=== PATIENT | female | born 1990 | race Caucasian/White ===

== ENCOUNTER 2021-12-16 08:01 | Emergency (ER) | payer BC, SELFPAY ==
--- NOTE | ~2021-12-16 | XR_ITS ---
XR chest 1V portable DATE: 12/16/2021 08:44 INDICATION: Shortness of breath. Asthma attack. TECHNIQUE: Portable upright AP chest on 12/16/2021 at 0840 hours COMPARISON: None FINDINGS: Normal heart size. No hilar or mediastinal enlargement. The lungs appear normally inflated and clear of infiltrate or consolidation. No pleural effusion or pulmonary vascular congestion or pne umothorax. Included skeletal structures are unremarkable. IMPRESSION: Negative Reviewed, dictated and finalized at location A. IMPRESSION: Negative
[2021-12-16 08:08] VITALS: BP 116/72; PULSE 75; RESP 16; TEMP 36.2; O2SAT 97
--- NOTE | 2021-12-16 08:23 | ED.ASTHMA ---
HPI - Asthma General Chief Complaint: Asthma Stated Complaint: ASTHMA EXACERBATION Time Seen by Provider: 12/16/21 08:14 History of Present Illness HPI Narrative: 31-year-old female with history of asthma presented to the emergency department for evaluation of worsening shortness of breath that started this morning. Patient states her last asthma exacerbation was associated when she had a . Her physicians have felt that her asthma exacerbations are correlated with her hormone fluctuation. Patient states this morning she had onset of symptoms did use her rescue inhaler and does feel improved since. Patient states she does still have some residual wheezing but feels improved compared to when she had the onset of symptoms at approximately 630 this morning. Related Data Allergies Allergy/AdvReac Type Severity Reaction Status Date / Time minocycline Allergy Unknown Unknown Unverified 12/16/21 08:29 tramadol Allergy Nausea and Verified 12/16/21 08:29 Vomiting Cat Dander Allergy Unknown Unknown Uncoded 12/16/21 08:29 Grass Allergy Unknown Unknown Uncoded 12/16/21 08:29 Molds and Smuts Allergy Unknown Unknown Uncoded 12/16/21 08:29 Review of Systems Review of Systems: CONSTITUTIONAL: Denies fever, chills, or sweats. EYES: Denies visual changes, redness, or discharge. ENT: Denies rhinorrhea, congestion, sore throat, or otalgia. CARDIOVASCULAR: Denies chest pain, palpitations, or edema. RESPIRATORY: See HPI GASTROINTESTINAL: Denies abdominal pain, nausea, vomiting, or diarrhea. GENITOURINARY: Denies dysuria or hematuria. SKIN: Denies rash or itching. MUSCULOSKELETAL: Denies back pain, joint pain, or myalgia. NEUROLOGIC: Denies headache, numbness, or weakness. PSYCHIATRIC: Denies anxiety or depression. Exam Narrative: APPEARANCE: Well appearing, no pain, no distress, well-nourished. HEAD: normocephalic, atraumatic. EYES: PERRLA/EOMI, conjunctivae clear. NOSE: Normal no drainage NECK: Supple. No adenopathy, no masses. RESPIRATORY: Some minor wheezing with inspiration CARDIOVASCULAR: Regular rate and rhythm without murmurs rubs or gallops. ABDOMINAL: Soft, nontender, nondistended, normal bowel sounds MUSCULOSKELETAL: Moves all extremities. Strength/ROM intact, No edema, No calf tenderness. NEURO: Alert. Cranial nerves II through XII intact. Grossly intact SKIN: Warm, dry. Normal Color PSYCHIATRIC: Normal affect/mood. Course Course Emergency Course: Patient does feel improved with treatment. Patient's x-ray showed no acute cardiopulmonary malady. Patient has no wheezing on exam. Patient's wheezing did resolve with albuterol. Vital Signs Vital signs: Vital Signs Temperature 97.2 F L 12/16/21 08:08 Pulse Rate 75 12/16/21 08:08 Respiratory Rate 16 12/16/21 08:08 Blood Pressure 116/72 12/16/21 08:08 Pulse Oximetry 97 12/16/21 08:08 Oxygen Delivery Room Air 12/16/21 08:08 Temperature 97.2 F L 12/16/21 08:08 Pulse Rate 75 12/16/21 08:08 Respiratory Rate 16 12/16/21 09:14 Blood Pressure 116/72 12/16/21 08:08 Pulse Oximetry 97 12/16/21 08:08 Oxygen Delivery Room Air 12/16/21 08:22 MDM - Asthma Lab Data Labs: Lab Results 12/16/21 Range/Units 08:51 Influenza A (RT-PCR) Negative (Negative) Influenza B (RT-PCR) Negative (Negative) SARS-CoV-2 RNA (RT-PCR) Negative Imaging Data Radiologist's impression: Impressions Chest X-Ray 12/16/21 08:50 IMPRESSION: Negative Discharge Plan Discharge Clinical Impression: Asthma with acute exacerbation Patient Disposition: Home, Self-Care Condition: Stable Additional Instructions: Rescue albuterol inhaler as needed over the next few days. If you feel you are having the still use your inhaler more frequently than I do recommend starting the steroid burst. We recommend close follow-up with your primary care physician. Prescriptions: New prednisone 50 mg tablet 50 mg PO PATRICIA
[2021-12-16] MEDS: ALBUTEROL SULFATE NEB 2.5 MG/3 ML INH 5 MG INHALATION (09:08)
[2021-12-16 09:14] VITALS: RESP 16
[2021-12-16 09:33] LABS: Influenza A QL RT-PCR Negative (Negative); Influenza B QL RT-PCR Negative (Negative); SARS-CoV-2 RNA PCR Negative
== END 2021-12-16 10:06 | disposition home or self-care (01) ==
PROVIDERS: Emergency Provider Emergency Medicine; PCP Internal Medicine
DX: J45.901 Unspecified asthma with (acute) exacerbation (principal); Z20.822 Contact with and (suspected) exposure to COVID-19
CPT/HCPCS: 71045; 87502; 94640; 99283; U0003; U0005

== ENCOUNTER 2022-04-09 08:59 | Emergency (ER) | payer BC, SELFPAY ==
--- NOTE | ~2022-04-09 | XR_ITS ---
EXAMINATION: XR chest 2V 04/09/2022 09:25 INDICATION: Chest pain PROCEDURE: 2 view chest COMPARISON: 12/16/2021 FINDINGS: The lungs are clear. The cardiomediastinal silhouette is within normal limits. There are no pleural effusions. There is no pneumothorax suspected. IMPRESSION: 1: NO ACUTE CARDIOPULMONARY DISEASE. Reviewed, dictated and finalized at location L. REPAIR INSPECTOR
--- NOTE | ~2022-04-09 | CT_ITS ---
EXAMINATION: CTA chest PE protocol DATE: 04/09/2022 10:16 PRODUCTION TEAM MEMBER INDICATION: Left-sided pleuritic chest pain TECHNIQUE: Computed tomographic angiography (CTA) of the chest was performed with 100 mL Omnipaque-35 0 intravenous contrast. The dose-length product was 324.09 mGy-cm. Maximum intensity projection 3D-re constructions of the aorta and other arteries were constructed by the technologist on a separate work station. Automated exposure control and iterative reconstruction technique were employed. COMPARISON: Chest x-ray dated 04/09/2022. FINDINGS: Study is technically adequate without evidence for pulmonary embolism. No thoracic lymphade nopathy. Small left pleural effusion. Small pericardial effusion. No endobronchial lesions. No pneumo thorax. No focal airspace consolidation. There is focal right upper lobe atelectasis/scarring. No acu te osseous abnormality. IMPRESSION: 1. Small left pleural effusion. 2: Small pericardial effusion. 3: No evidence for pulmonary embolism. Reviewed, dictated and finalized at location L. UCTION TEAM MEMBER
[2022-04-09 09:04] VITALS: BP 126/88; PULSE 77; RESP 14; TEMP 36.6; O2SAT 100
--- NOTE | 2022-04-09 09:04 | ECG_ITS ---
Measurements Intervals [place] Rate: 73 P: 54 CA: 145 QRS: 71 QRSD: 101 T: 25 QT: 387 QTc: 427 Interpretive Statements SINUS RHYTHM NORMAL ECG NO PREVIOUS ECG AVAILABLE FOR COMPARISON Electronically Signed On 04-09-2022 10:09:40 SOFTWARE DEVELOPER MANAGER by Justo Sierra M.D.
[2022-04-09 09:11] VITALS: PULSE 75; O2SAT 100
--- NOTE | 2022-04-09 09:13 | ED.CHESTPAIN ---
HPI - Chest Pain General Chief Complaint: Chest Pain Stated Complaint: neck, chest and back pain x 2 days Time Seen by Provider: 04/09/22 09:11 Source: patient Mode of arrival: ambulatory Limitations: no limitations History of Present Illness HPI narrative: This is a 32 year old female that presents to the ER for left sided chest pain. Ongoing over the last 3 days. Reports initially it felt like a pulled muscle. She had played pickle ball that day. Reports the pain radiates into her back. Worse with inspiration. She has been taking Tylenol with some relief. Denies fever, cough, shortness of breath or lower extremity edema. Related Data Allergies Allergy/AdvReac Type Severity Reaction Status Date / Time minocycline Allergy Unknown Unknown Verified 04/09/22 09:12 tramadol Allergy Nausea and Verified 04/09/22 09:12 Vomiting Cat Dander Allergy Unknown Unknown Uncoded 04/09/22 09:12 Grass Allergy Unknown Unknown Uncoded 04/09/22 09:12 Molds and Smuts Allergy Unknown Unknown Uncoded 04/09/22 09:12 Review of Systems Review of Systems: CONSTITUTIONAL: Denies fever CARDIOVASCULAR: Reports chest pain. Denies edema. RESPIRATORY: Denies cough or dyspnea. SKIN: Denies rash MUSCULOSKELETAL: Reports back pain, joint pain, and myalgia. All systems reviewed & are unremarkable except as noted in HPI and below PMFSH Past Medical History Medical History (Updated 04/09/22 @ 12:31 by Sofy Harper PA-C) History of asthma History of lupus Social History Social History (Updated 04/09/22 @ 09:47 by Sofy Harper PA-C) Smoking status: Never smoker Substance use: never Exam Narrative: GENERAL: Well-appearing, well-nourished, and in no acute distress. HEAD: Normocephalic, atraumatic. EYES: EOMI. CHEST: Clear to auscultation. No respiratory distress. No wheezes rales or rhonchi HEART: Regular rate and rhythm. No murmur heard. Normal peripheral pulses. EXTREMITIES: Normal range of motion. No edema. SKIN: Warm, dry, no rash. NEURO: No focal deficits. Alert and oriented x3. PSYCH: Normal mood and affect Course Course Emergency Course: Patient and family updated on work-up and agree with plan of care Consultations Consultation #1: Spoke with patient's balance recesser, JOSE Friedman about patient and workup. Agrees with scheduled anti-inflammatories and follow-up in their clinic Date: 04/09/22 Vital Signs Vital signs: Vital Signs Temperature 97.8 F 04/09/22 09:04 Pulse Rate 77 04/09/22 09:04 Respiratory Rate 14 04/09/22 09:04 Blood Pressure 126/88 04/09/22 09:04 Pulse Oximetry 100 04/09/22 09:04 Oxygen Delivery Room Air 04/09/22 09:04 Temperature 97.8 F 04/09/22 09:04 Pulse Rate 68 04/09/22 11:19 Respiratory Rate 12 04/09/22 11:19 Blood Pressure 95/56 L 04/09/22 11:19 Pulse Oximetry 98 04/09/22 11:19 Oxygen Delivery Room Air 04/09/22 09:11 MDM - Chest Pain MDM Narrative Medical decision making narrative: Patient presents to the emergency department for pleuritic left-sided chest pain ongoing over the last couple of days. She is afebrile and nontoxic-appearing. Oxygen saturation is normal on room air. CBC is without leukocytosis. Metabolic panel without concerning findings. EKG without acute changes and baseline troponin is negative. test is negative. D-dimer was elevated, so CTA of the chest was obtained. This shows a small left pleural effusion as well as a small pericardial effusion. No evidence for PE. Suspect manifestations of her lupus. Spoke with patient's balance recesser, JOSE Friedman about patient and workup. Agrees with scheduled anti-inflammatories and follow-up in their clinic. Patient is stable and felt appropriate for further outpatient evaluation. She was given warnings to return to the ER Differential Diagnosis Differential diagnosis: Likely pneumothorax, atypical chest pain, costochondritis and other (PE, pleural effusion, pneumonia) Lab D
[2022-04-09 09:18] LABS: Basophils Percent Auto 0.3 % (0.2-1.2); Eosinophils Absolute Auto 0.1 K/mm3 (0-0.3); Eosinophils Percent Auto 0.9 % (0-4.4); Hematocrit 39.5 % (37.0-47.0); Hemoglobin 13.4 g/dL (12.0-15.0); Immature Granulocyte Absolute 0.03 K/mm3 (0.00-0.031); Immature Granulocyte Percent A 0.3 % (0-0.5); Lymphocytes Absolute Auto 1.68 K/mm3 (0.9-3.2); Lymphocytes Percent Auto 17.9 % (18.3-44.2); Mean Corpuscular HGB Conc 33.9 g/dl (32-36); Mean Corpuscular Hemoglobin 31.1 pg (26-34); Mean Corpuscular Volume 91.6 fl (80-100); Mean Platelet Volume 11.4 fl (7.4-10.4); Monocytes Absolute Auto 0.7 K/mm3 (0.1-0.6); Neutrophils Absolute Auto 6.9 K/mm3 (1.3-6.7); Neutrophils Percent Auto 73.6 % (45.5-73.1); Platelet Count Result 190 k/mm3 (150-375); Red Blood Count 4.31 M/mm3 (4.2-5.4); Red Cell Distribution Width 11.8 % (11.5-14.5); White Blood Count 9.4 K/mm3 (4.5-10.0)
[2022-04-09 09:28] LABS: Alanine Aminotransferase 25 U/L (6-35); Albumin Level 4.9 g/dL (3.5-5.1); Alkaline Phosphatase 42 U/L (38-126); Anion Gap 6 mmol/L (8-16); Aspartate Amino Transferase 35 U/L (14-36); Bilirubin,Total 0.8 mg/dL (0.2-1.3); Blood Urea Nitrogen 8 mg/dL (7-17); Carbon Dioxide 31 mmol/L (22-30); Chloride 103 mmol/L (98-107); Estimated CRCL calculation 100 ml/min; Estimated Glomerular Filt Rate > 60; Glucose 66 mg/dL (65-110); Lipase 55 U/L (23-300); Potassium 3.5 mmol/L (3.4-5.0); Sodium 140 mmol/L (137-145)
[2022-04-09 09:32] LABS: Partial Thromboplastin Time 28.7 SECONDS (22.3-36.8)
[2022-04-09 09:33] LABS: Prothrombin Time 13.1 Seconds (11.1-14.7)
[2022-04-09 09:39] LABS: D Dimer 0.69 ug/mL (<0.48); Troponin I < 0.012 ng/mL (0.000-0.034)
[2022-04-09 09:57] VITALS: BP 119/70; PULSE 70; RESP 15; O2SAT 99
[2022-04-09 11:19] VITALS: BP 95/56; PULSE 68; RESP 12; O2SAT 98
[2022-04-09 12:41] VITALS: BP 106/56; PULSE 86; RESP 17; O2SAT 99
== END 2022-04-09 12:42 | disposition home or self-care (01) ==
PROVIDERS: Emergency Medicine; Emergency Provider Physician Assistant; PCP Family Medicine
DX: J90 Pleural effusion, not elsewhere classified (principal); J45.909 Unspecified asthma, uncomplicated
CPT/HCPCS: 36415; 71046; 71275; 80053; 81025; 83690; 84484; 85025; 85380; 85610; 85730; 93005; 99284; Q9967

== ENCOUNTER 2023-05-27 10:32 | Emergency (ER) | payer BC, SELFPAY ==
[2023-05-27 10:38] VITALS: BP 140/63; PULSE 59; RESP 16; TEMP 36.5; O2SAT 97
--- NOTE | 2023-05-27 10:54 | ED.UPPEXIN ---
HPI - Extremity Injury (Upper) General Chief Complaint: Extremity Injury, Upper Stated Complaint: left ring finger injury/bleeding. Time Seen by Provider: 05/27/23 10:47 History of Present Illness HPI narrative: 33-year-old female presents to the emergency room for evaluation of a left ring finger injury. Patient states that she cut her finger on a piece of glass, is unable to stop the bleeding. Patient was seen at urgent care yesterday and was told that there was nothing to repair. Pressure dressing was applied yesterday, patient states that she has been bleeding through the dressing. Patient states she is not anticoagulated. Related Data Allergies Allergy/AdvReac Type Severity Reaction Status Date / Time minocycline Allergy Unknown Unknown Verified 04/09/22 09:12 tramadol Allergy Nausea and Verified 04/09/22 09:12 Vomiting Cat Dander Allergy Unknown Unknown Uncoded 04/09/22 09:12 Grass Allergy Unknown Unknown Uncoded 04/09/22 09:12 Molds and Smuts Allergy Unknown Unknown Uncoded 04/09/22 09:12 Review of Systems Review of Systems: CONSTITUTIONAL: Denies fever, chills, or sweats. EYES: Denies visual changes, redness, or discharge. ENT: Denies rhinorrhea, congestion, sore throat, or otalgia. CARDIOVASCULAR: Denies chest pain, palpitations, or edema. RESPIRATORY: Denies cough or dyspnea. GASTROINTESTINAL: Denies abdominal pain, nausea, vomiting, or diarrhea. GENITOURINARY: Denies dysuria or hematuria. SKIN: Denies rash or itching. MUSCULOSKELETAL: Denies back pain, joint pain, or myalgia. NEUROLOGIC: Denies headache, numbness, dizziness, or weakness. PSYCHIATRIC: Denies anxiety or depression. PMFSH Past Medical History Medical History History of asthma History of lupus Social History Social History Smoking status: Never smoker Substance use: never Exam Narrative: GENERAL: Well-appearing, well-nourished, no physical limitations, and in no acute distress. HEAD: Normocephalic, atraumatic. EYES: Conjunctivae normal, PERRLA and EOMI. CHEST: Clear to auscultation. No respiratory distress. No wheezes rales or rhonchi. HEART: Regular rate and rhythm. No murmur heard. Normal peripheral pulses. EXTREMITIES: Normal range of motion. No edema. No clubbing or cyanosis SKIN: Left ring finger: NEURO: No focal deficits. Alert and oriented x3. MAEW. CN's II-XI intact bilaterally, normal gait PSYCH: Cooperative. Normal mood and affect. Course Vital Signs Vital signs: Vital Signs Temperature 36.5 C 05/27/23 10:38 Pulse Rate 59 L 05/27/23 10:38 Respiratory Rate 16 05/27/23 10:38 Blood Pressure 140/63 05/27/23 10:38 Pulse Oximetry 97 05/27/23 10:38 Temperature 36.5 C 05/27/23 10:38 Pulse Rate 59 L 05/27/23 10:38 Respiratory Rate 16 05/27/23 10:38 Blood Pressure 140/63 05/27/23 10:38 Pulse Oximetry 97 05/27/23 10:38 Procedures Other Procedure Procedure 1: Other Procedure: Surgicel applied to wound with pressure dressing. Bleeding controlled. Discharge Plan Discharge Clinical Impression: Avulsion of skin of finger Patient Disposition: Home, Self-Care Condition: Stable Instructions: Antibiotic Form, Skin Avulsion (ED) Prescriptions: No Action prednisone 50 mg tablet 50 mg PO DAILY 5 Days Qty: 5 0RF naproxen 500 mg tablet 500 mg PO BID 14 Days Qty: 28 0RF Follow-up/Referrals: Lucio,Angelo Hayes MD [Primary Care Provider] - Time of Disposition: 12:27
[2023-05-27 12:36] VITALS: BP 170/68; PULSE 87; RESP 19; TEMP 36.8; O2SAT 98
== END 2023-05-27 12:38 | disposition home or self-care (01) ==
PROVIDERS: Emergency Provider Nurse Practitioner Family; PCP Family Medicine
DX: S61.205A Unspecified open wound of left ring finger without damage to nail, initial encounter (principal); J45.909 Unspecified asthma, uncomplicated; M32.9 Systemic lupus erythematosus, unspecified; W25.XXXA Contact with sharp glass, initial encounter
CPT/HCPCS: 99282

== ENCOUNTER 2024-08-20 10:55 | Emergency (ER) | payer BC, SELFPAY ==
[2024-08-20] VITALS (22 sets, daily range): BP systolic 91–121; BP diastolic 57–71; PULSE 64–80; RESP 12–22; TEMP 36.7; O2SAT 97–100
--- NOTE | ~2024-08-20 | XR_ITS ---
CHEST RADIOGRAPH, PA AND LATERAL CLINICAL HISTORY: chest pain, PMH pleural effusion . COMPARISON: 04/09/2022 TECHNIQUE: PA and lateral views of the chest. FINDINGS The cardiomediastinal silhouette is unremarkable. The lungs are clear. IMPRESSION: No focal infiltrate or effusion. Reviewed, dictated and finalized at location A.
--- NOTE | 2024-08-20 10:55 | ECG_ITS ---
Test Date: 2024-08-20 11:00:04 Measurements Intervals [place] Rate: 84 P: 65 SD: 135 QRS: 83 QRSD: 90 T: 45 QT: 351 QTc: 417 Interpretive Statements SINUS RHYTHM POSSIBLE LEFT ATRIAL ENLARGEMENT [-0.1mV P WAVE IN V1/V2] No previous ECG available for comparison Electronically Signed On 08-20-2024 13:51:46 CDT by Brant Jacome M.D.
--- OUTSIDE RECORDS SUMMARY | 2024-08-20 10:57 | XMS_ITS | Encounter Summary ---
Author Organization [facility] Address [address] [place] [address] Phone Care Team Providers Care Pneumatic Riveter Name Role Phone Juan Baker MD Primary Care Provider [phone] Tarun Thompson MD Primary Care Provider [phone] Juan Baker MD Primary Care Provider [phone] Dwayne RIVERA MD, John J. Unavailable [phone] Juan Baker MD Primary Care Provider [phone] Angelo Valdes MD Primary Care Provider Guy Staples MD Unavailable [phone] Cailin Frank MD Unavailable Jay Santamaria MD Unavailable [phone] Encounter Details Date Type Department Care Team (Latest Contact Info) Description 12/29/2016 Orders Only [facility] CONVERSION Scanning, Provider Social History Tobacco Use Types Packs/Day Years Used Date Smoking Tobacco: Never Alcohol Use Standard Drinks/Week Comments No 0 (1 standard drink = 0.6 oz pur e alcohol) Comments Yes Sex and Gender Information Value Date Recorded Sex Assigned at Not on file Legal Sex Female 2:00 AM CAGE SHIFT MANAGER Gender Identity Not on file Sexual Orientation Not on file documented as of this encounter Plan of Treatment Not on file documented as of this encounter Procedures Procedure Name Priority Date/Time Associated Diagnosis Comments OBSTETRIC/GYNECOLOGY ULTRASONOGRAPHY REPORT 12/29/2016 2:46 PM CAGE SHIFT MANAGER documented in this encounter Results * OBSTETRIC/GYNECOLOGY ULTRASONOGRAPHY REPORT (12/29/2016 2:46 PM CAGE SHIFT MANAGER) Anatomical Region Laterality Modality Ultrasound us Provider Scanning IMG OB US PROCEDURES Final Res ult documented in this encounter Visit Diagnoses Not on filedocumented in this encounter Additional Health Concerns Infection Onset Date Last Indicated Resolved Time COVID: Suspected 08/12/2022 08/12/2022 08/12/2022 4:06 PM CDT COVID: Suspected 01/04/2023 01/04/2023 01/04/2023 4:45 PM CAGE SHIFT MANAGER COVID: Suspected 01/08/2023 01/08/2023 01/08/2023 2:13 PM CAGE SHIFT MANAGER COVID: Suspected 03/23/2024 03/23/2024 03/23/2024 10:02 AM CAGE SHIFT MANAGER Influenza, adult 03/23/2024 03/23/2024 03/30/2024 3:05 AM CAGE SHIFT MANAGER documented as of this encounter Care Teams Pneumatic Riveter Relationship Specialty Start Date End Date Juan Baker MD [address] [place] [address] PCP - General 05/15/16 12/30/16 Tarun Thompson MD [address] [id number] [place] [address] PCP - General 12/31/16 01/05/17 Juan Baker MD [address] [place] [address] PCP - General 01/06/17 04/08/17 Juan Baker MD [address] [place] [address] PCP - General 04/09/17 03/24/22 Angelo Valdes MD [address] [facility] [address] [place] [address] PCP - General Family Medicine 03/25/22 Ender Rice III, MD [address] [place] [address] Rheumatology 02/23/17 03/03/23 Guy Staples MD [address] [place] [address] Consulting Physician Obstetrics and Gynecology 03/25/22 Cailin Frank MD [address] O[facility]YN [facility] , [address] [place] [address] Consulting Physician Maternal and Medicine 11/16/22 Jay Santamaria MD [address] [place] [address] Consulting Physician Rheumatology 03/04/23 documented as of this encounter
--- OUTSIDE RECORDS SUMMARY | 2024-08-20 10:57 | XMS_ITS | Encounter Summary ---
Author Organization [facility] Address [address] [place] [address] Phone Care Team Providers Care Shot Man Name Role Phone Angelo Valdes MD Primary Care Provider Guy Staples MD Unavailable [phone] Cailin Frank MD Unavailable [phone] Jay Santamaria MD Unavailable [phone] Encounter Details Date Type Department Care Team (Late st Contact Info) Description 06/28/2024 Results Follow-Up [facility] Obstetrics and Gynecology [address] [facility] [address] [place] [address] Poonam Alexander Rai, HARVESTING CONTRACTOR [address] [facility] [address] [place] [address] [place] Pelvis Complete Social History Tobacco Use Types Packs/Day Years Used Date Smoking Tobacco: Never Smokeless Tobacco: Never Alcohol Use Standard Drinks/Week Comments Yes 0 (1 standard drink = 0.6 oz pur e alcohol) Socially Social Connection and Isolat ion Panel [NHANES] Answer Date Recorded In a typical week, how many times do you talk on the phone with family, friends, or neighbors? More than three times a week 01/13/2023 How often do you get togethe r with friends or relatives? More than three times a week 01/13/2023 How often do you attend chur or denominational services? More than 4 times per year 01/13/2023 Do you belong to any clubs o r organizations such as confucianism groups, unions, fraternal or athletic groups, or school groups? Yes 01/13/2023 How often do you attend meet ings of the clubs or organizations you belong to? 1 to 4 times per year 01/13/2023 Are you , , di vorced, , never , or living with a partner? 01/13/2023 AUDIT-C Answer Date Recorded Q1: How often do you have a drink containing alc ohol? 2-3 times a week 03/25/2022 Q2: How many drinks containi ng alcohol do you have on a typical day when you are drinking? 1 or 2 03/25/2022 Q3: How often do you have si x or more drinks on one occasion? Less than monthly 03/25/2022 Overall Financial Resource Strain (CARDIA) Answe r Date Recorded How hard is it for you to pa y for the very basics like food, housing, medical care, and heating? Not hard at all 01/13/2023 PHQ-2 Answer Date Recorded PHQ-2 Total Score (If total score is 3 or more points, staff should administer the PHQ-9) 0 01/08/2023 Exercise Vital Sign Answer Date Recorde d Days of Exercise per Week 3 days 2018 Minutes of Exercise per Session 30 min 10/04/2018 Hunger Vital Sign Answer Date Recorded Within the past 12 months, y ou worried that your food would run out before you got the money to buy more. Never true 01/14/20 23 Within the past 12 months, t he food you bought just didn't last and you didn't have money to get more. Never true 01/13/2023 PRAPARE - Transportation Answer Date Re corded In the past 12 months, has l ack of transportation kept you from medical appointments or from getting medications? No 12/17 In the past 12 months, has l ack of transportation kept you from meetings, work, or from getting things needed for daily living? No 01/13/2023 Housing Stability Vital Sign Answer Kameron e Recorded In the last 12 months, was t here a time when you were not able to pay the mortgage or rent on time? No 01/13/2023 In the last 12 months, how many places have you lived? 1 01/13/2023 In the last 12 months, was t here a time when you did not have a steady place to sleep or slept in a fdc (including now)? No 01/13/2023 [place] Depression Scale Answer Date Recorded [place] Depression Scale Total 11 02/23/2023 The thought of harming myself has occurred to me . Never 02/23/2023 Personal Safety Answer Date Recorded Have you ever been in or are you currently in a harmful physical or emotional relationship or is someone making you feel afraid or unsafe? 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 [address] PCP - General Family Medicine 03/25/22 Guy Staples MD [address] [address] Consulting Physician Obstetrics and Gynecology 03/25/22 Cailin Frank MD [address] [facility]YN [facility] [address] [address] Consulting Physician Maternal and Medicine 11/16/22 Jay Santamaria MD [address] [place] [address] Consulting Physician Rheumatology 03/04/23 documented as of this encounter
--- OUTSIDE RECORDS SUMMARY | 2024-08-20 10:57 | XMS_ITS | Clinical Summary ---
Author Organization [facility] Care Team Providers Care Fisheries Enforcement Officer Name Role Phone Unavailable Primary Care Provider Unavailabl e Social History Tobacco Use Types Packs/Day Years Used Date Smoking Tobacco: Never Assessed Comments Unknown Sex and Gender Information Value Date Recorded Sex Assigned at Not on file Legal Sex Female 10:01 AM MONTESSORI TODDLER TEACHER Gender Identity Not on file Sexual Orientation Not on file Plan of Treatment Health Maintenance Due Date Last Done Comments Hepatitis C Virus (HCV) Screening 1989 TdaP Immunization 1989 Hepatitis B Immunization (1 of 3 - 19+ 3-dose series) 01/31/2008 Pap Smear 2010 Cervical Cancer Screening (CCS) 2019 HPV/Cotest 2019 Influenza Immunization (#1) 2023 SARS-COV-2 Immunization ( season) 2023 01/19/2021, 05/11/2020, 04/18/2020 Respiratory Syncytial Virus (RSV) Immunization (Adult) (1 - 1-dose 75+ series) 01/31/2064 Meningococcal Immunization (ACWY) Aged Out No longer eligible b ased on patient's age to complete this topic Pneumococcal Immunization Combined Aged Out No longer eligible b ased on patient's age to complete this topic Rotavirus Immunization Aged Out No lo nger eligible based on patient's age to complete this topic
--- OUTSIDE RECORDS SUMMARY | 2024-08-20 10:57 | XMS_ITS | Clinical Summary ---
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 Name Role Phone Juan Baker MD Primary Care Provider [phone] Social History Tobacco Use Types Packs/Day Years Used Date Smoking Tobacco: Never Assessed Comments Unknown Sex and Gender Information Value Date Recorded Sex Assigned at Not on file Legal Sex Female 7:52 PM CDT Gender Identity Not on file Sexual Orientation Not on file Plan of Treatment Health Maintenance Due Date Last Done Comments Cervical Cancer Screening Pa p Smear (Age 30 to 64) Every 3 Years 1989 Annual Physical 01/31/1992 Hepatitis C 2007 Hepatitis B Vaccines (1 of 3 - 19+ 3-dose series) 01/31/2008 Cervical Cancer Screening Pa p with HPV Testing (Age 30 to 64) Every 5 Years 2019 Cervical Cancer Screening wi th HPV 2019 COVID-19 Vaccine ( - 2023-2 5 season) 2023 05/11/2020, 04/18/2020 DTaP, Tdap and Td Vaccines ( 3 - Td or Tdap) 05/15/2029 05/16/2019, 10/27/2016 Pneumococcal Vaccine: Pediatrics (0 to 5 Years) and At-Risk Patients (6 to 49 Years) Aged Out 03/18/2007 No longer eligible b ased on patient's age to complete this topic HPV Vaccines Aged Out No longer eligi ble based on patient's age to complete this topic Meningococcal B Vaccine Aged Out No l onger eligible based on patient's age to complete this topic Meningococcal Vaccine Aged Out No cathryn lillian eligible based on patient's age to complete this topic RSV Immunizations Under 20 Months Aged Out No longer eligible b ased on patient's age to complete this topic Care Teams Cash Van Salesperson Relationship Specialty Start Date End Date Juan Baker MD [address] [place] [id number] PCP - General 03/18/16
--- OUTSIDE RECORDS SUMMARY | 2024-08-20 10:57 | XMS_ITS | Clinical Summary ---
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 Reaction: Other, Mint Itching Low 01/04/2019 Naproxen Stomach upset,Nausea And Vomiting Low 04/16/2022 Peppermint Oil Itching Low 01/04/2019 Tramadol Nausea only,Vomiting,Nausea And Vomiting Low 10/13/2023 Medications 25/iron fum/folic/dha (-1 ORAL) Take by mouth Active ibuprofen (ADVIL,MOTRIN) 600 mg tablet Take 1 tablet (600 mg total) by mouth every 6 (six) hours as needed for pain 60 tablet 01/16/20 23 Active norethindrone (MICRONOR) 0.35 mg tabletIndications : Contraception Take 1 tablet (0.35 mg total) by mouth daily 28 tablet 12 01/16/20 23 Active UNABLE TO FIND Med Name: supplements Active albuterol (PROAIR RESPICLICK) 90 mcg/actuation inhalerIndication s:Acute Asthma Attack Inhale 2 puffs every 6 (six) hours as needed for wheezing 1 each 07/21/19 24 Active Additional Information Patient not taking.Reported on 06/19/2024 albuterol 2.5 mg /3 mL (0.083 %) nebulizer solutionIndicatio ns:Acute Asthma Attack Take 3 mL (2.5 mg total) by nebulization 4 (four) times a day as needed for wheezing or shortness of breath 270 mL 1 08/06/19 24 Active Additional Information Patient not taking.Reported on 06/19/2024 fluticasone furoate-vilantero L (Breo Ellipta) 200-25 mcg/dose diskus inhaler Inhale 1 puff daily Rinse mouth with water after use. Do not swallow. 60 each 5 08/06/19 24 Active nebulizer and compressor device Use as directed with albuterol 1 each 08/06/19 24 Active Additional Information Patient not taking.Reported on 06/19/2024 benzonatate (TESSALON) 100 mg capsuleIndication s:Cough Take 1 capsule (100 mg total) by mouth 3 (three) times a day as needed for cough 42 capsule 03/23/19 25 Active albuterol HFA (PROVENTIL HFA,VENTOLIN HFA,PROAIR HFA) 90 mcg/actuation inhalerIndication s:Mild intermittent asthma without complication Inhale 2 puffs every 6 (six) hours as needed for wheezing or shortness of breath 18 g 03/23/19 25 Active azaTHIOprine (IMURAN) 50 mg tablet TAKE 2 TABLETS(100 MG) BY MOUTH DAILY 180 tablet 1 04/25/19 25 Active hydroxychloroquin e (PLAQUENIL) 200 mg tablet TAKE 1 TABLET(200 MG) BY MOUTH TWICE DAILY 180 tablet 1 06/23/19 25 Active Active Problems Problem Noted Date Diagnosed Date Pain of right hip 03/17/2024 Assessment & Plan (03/17/2024 1:21 PM GENERAL INTERNIST): Intermittent R hip pain, located near gluteal muscle insertion. Also describing what is likely meralgia paresthetica. Not interfering with any usual activities. Recommend working more on hip/gluteal strengthening exercises. Mild intermittent asthma, uncomplicated 10/13/19 24 H/O section 01/12/2023 Overview (01/12/2023): Alejandra Rodriguez is a 32 y.o. female at 39w2d who is dated by L=1 and is being admitted for scheduled repeat CS . Admit to L&D: Consents signed and placed in chart. Labs: CBC and T&S pending. section after labs return. FWB: Continuous monitoring. Reactive NST. ID: 3rd trimester HIV (>28 wga) pending on admission. GBS negative on 12/22 . RPR on admission: pending. Membrane Status: intact. Indications for UDS: none. Verbal consent obtained for UDS: Not indicated. MOF: Plans to breastfeed. Urine drug screen not indicated. Patient informed of results: N/A. MOC: Plans to use POPs as bridge to partner vasectomy for contraception. Pain management: CSE to be placed in the OR. Post DVT prophylaxis: The patient has the following MAJOR risk factors lupus and the following MINOR risk factors delivery and parity >/=3. enoxaparin 40 mg daily will be ordered for VTE prophylaxis . complications: #Hx CS x2: LTCS x2 for failed IOL. S/p counseling, desires rCS. #SLE: Follows with rheumatology. Baseline CBC/CMP/UPC wnl. Current regimen: Hydroxychlorquine 400mg qAM, Azathioprine 50mg qAM, 100 mg qPM. For CBC/CMP on admission. #Bill TIUP w/ demise of twin 1: Bill TIUP diagnosed with demise of twin 1 at 9 weeks with demised twin measuring 8w4d. #Asthma: Symptoms well controlled on albuterol prn. High risk medications (not anticoagulants) long- term use 07/14/2022 Overview (07/14/2022): Will monitor labs Neg TB 2016 Neg hepatitis 2016 utd eye exam utd COVID vaccine. Had new booster Flu shot utd utd tdap. [id number] in 2007. May have a dose of PCV15 or PCV20 May also get shingles vaccine since immune compromised Assessment & Plan (06/15/2024 9:52 AM CDT): Will monitor labs Neg TB 2016 Neg hepatitis 2016 utd eye exam May get COVID shot 2-3 months after having acute COVID infection Flu shot yearly - utd 2023 utd tdap. [id number] in 2007. May have a dose of PCV15 or PCV20 May also get shingles vaccine since immune compromised Assessment & Plan (03/17/2024 1:19 PM GENERAL INTERNIST): Will monitor labs Neg TB 2016 Neg hepatitis 2016 utd eye exam May get COVID shot 2-3 months after having acute COVID infection Flu shot yearly - utd 2023 utd tdap. [id number] in 2007. May have a dose of PCV15 or PCV20 May also get shingles vaccine since immune compromised Assessment & Plan (12/17/2023 10:53 AM CDT): Will monitor labs Neg TB 2015 Neg hepatitis 2016 utd eye exam May get COVID shot 2-3 months after having acute COVID infection Flu shot yearly - will do today utd tdap. [id number] in 2007. May have a dose of PCV15 or PCV20 May also get shingles vaccine since immune compromised Assessment & Plan (09/10/2023 11:42 AM CDT): Will monitor labs Neg TB 2015 Neg hepatitis 2016 utd eye exam utd COVID vaccine. New boosters as applicable per guidelines Flu shot yearly utd tdap. [id number] in 2007. May have a dose of PCV15 or PCV20 May also get shingles vaccine since immune compromised Assessment & Plan (06/03/2023 11:57 AM CDT): Will monitor labs Neg TB 2016 Neg hepatitis 2016 utd eye exam utd COVID vaccine. New boosters as applicable per guidelines Flu shot yearly utd tdap. [id number] in 2007. May have a dose of PCV15 or PCV20 May also get shingles vaccine since immune compromised Assessment & Plan (11/12/2022 11:33 AM CDT): Will monitor labs Neg TB 2016 Neg hepatitis 2016 utd eye exam utd COVID vaccine. May get new vaccine soon Flu shot due soon utd tdap. [id number] in 2007. May have a dose of PCV15 or PCV20 May also get shingles vaccine since immune compromised Assessment & Plan (07/14/2022 1:56 PM CDT): Will monitor labs Neg TB 2016 Neg hepatitis 2016 utd eye exam utd COVID vaccine. Had new booster Flu shot utd utd tdap. [id number] in 2007. May have a dose of PCV15 or PCV20 May also get shingles vaccine since immune compromised Herpes zoster without complication 04/18/2019 Assessment & Plan (04/18/2019 4:10 PM GENERAL INTERNIST): Rash developed over the last 24 hrs with prodrome of pain for 3-4 days. Looks consistent with shingles. Will start valtrex 1gm TID x 7 days. Discussed typical course of shingles. Once lesions crust over she should no longer be contagious. 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 May use tylenol for pain. If pain persists she could ask OB if other meds can be used (gabapentin) during . Systemic lupus erythematosus 05/29/2016 Overview (03/04/2023): +GISSELLE 1:160, +CARE NAVIGATOR, +chromatin. Low c4 (2014) Neg LAC, anticardiolipin, b2gp1, RPR Neg SSA/SSB Neg RF, CCP On hcq 400mg/d and aza 100mg BID Episode of pleuritic chest pains, was seen in ER in 04/09. CTA neg for PE but did show L pleural effusion and small pericardial effusion. Was treated with nsaids. Had nausea/reflux on naproxen. I changed to celebrex 200mg daily with omeprazole 20mg daily. The pleuritic symptoms resolved and she stopped celebrex. Also received IM kenalog in 07/07 for persistent arthralgias/fatigue. Assessment & Plan (06/15/2024 10:14 AM CDT): cdai = 1 +GISSELLE 1:160, +CARE NAVIGATOR, +chromatin. Low c4 (2014) Neg LAC, anticardiolipin, b2gp1, RPR Neg SSA/SSB Neg RF, CCP Hx pleural/pericardial effusion in 04/09- treated with nsaids On hcq 400mg/d and aza 100mg qpm. Doing very well since last visit. No major flares. Continue current treatment plan. could consider increasing azathioprine dose in the future if needed. Labs today. F/u 3 months or sooner if needed. Seen with Dr. Santamaria. Assessment & Plan (03/17/2024 1:19 PM GENERAL INTERNIST): cdai = 11 +GISSELLE 1:160, +CARE NAVIGATOR, +chromatin. Low c4 (2014) Neg LAC, anticardiolipin, b2gp1, RPR Neg SSA/SSB Neg RF, CCP On hcq 400mg/d and aza 100mg qpm. Doing very well since last visit. No major flares. Continue current treatment plan, but could consider increasing azathioprine dose in the future if needed. Labs today. F/u 3 months or sooner if needed Assessment & Plan (12/17/2023 10:52 AM CDT): cdai = 18 +GISSELLE 1:160, +CARE NAVIGATOR, +chromatin. Low c4 (2014) Neg LAC, anticardiolipin, b2gp1, RPR Neg SSA/SSB Neg RF, CCP On hcq 400mg/d and aza 100mg qpm. Having increased widespread joint pain for the last several weeks. Taking tylenol with modest benefits, but pain level and AM stiffness much worse than usual. Is almost 1 year . Will give IM kenalog 100mg today due to flare. Continue current treatment plan, but could consider increasing azathioprine dose if consistently worse. Labs today. F/u 3 months or sooner if needed Assessment & Plan (09/10/2023 2:21 PM CDT): cdai = 2 +GISSELLE 1:160, +CARE NAVIGATOR, +chromatin. Low c4 (2014) Neg LAC, anticardiolipin, b2gp1, RPR Neg SSA/SSB Neg RF, CCP On hcq 400mg/d and aza 100mg qpm. S/p at 39 weeks on 01/12/23. Weaning off . She had a flare at the beginning of this summer and took a prednisone taper, doing much better today. Continue current treatment plan. Labs today. F/u 3 months or sooner if needed Assessment & Plan (06/03/2023 11:56 AM CDT): cdai = 5 +GISSELLE 1:160, +CARE NAVIGATOR, +chromatin. Low c4 (2014) Neg LAC, anticardiolipin, b2gp1, RPR Neg SSA/SSB Neg RF, CCP On hcq 400mg/d and aza 100mg qpm. S/p at 39 weeks on 01/12/23. She continues to do well post- with no lupus flares. Continue current treatment plan. Labs today. F/u 3 months or sooner if needed Assessment & Plan (03/04/2023 12:33 PM GENERAL INTERNIST): cdai = 10 +GISSELLE 1:160, +CARE NAVIGATOR, +chromatin. Low c4 (2014) Neg LAC, anticardiolipin, b2gp1, RPR Neg SSA/SSB Neg RF, CCP On hcq 400mg/d and aza 100mg qpm. S/p at 39 weeks on 01/12/23. Went well. She did have increase in hand pain/swelling for about 2 weeks prior to delivery and we gave her prednisone course of 10mg x 5 days then 5mg x 5 days. This helped significantly. She has done well post- with no lupus flares. Continue current treatment plan. Labs today. F/u 3 months or sooner if needed Assessment & Plan (11/12/2022 1:03 PM CDT): cdai = 0 +GISSELLE 1:160, +CARE NAVIGATOR, +chromatin. Low c4 (2014) Neg LAC, anticardiolipin, b2gp1, RPR Neg SSA/SSB Neg RF, CCP On hcq 400mg/d and aza 100mg qpm. Episode of pleuritic chest pains, was seen in ER in 04/09. CTA neg for PE but did show L pleural effusion and small pericardial effusion. Was treated with nsaids. Had nausea/reflux on naproxen. I changed to celebrex 200mg daily with omeprazole 20mg daily. The pleuritic symptoms have resolved and she stopped celebrex. Also received IM kenalog in 07/07 for persistent arthralgias/fatigue. Currently 30 weeks . Saw [facility] as she was found to have a twin with demise of one fetus by the time of her initial ultrasound. Remaining fetus appears healthy. Had neg SSA/SSB. On 81mg aspirin daily. Will monitor labs [id number]. Doing monthly ultrasounds per [facility]. Continue current treatment plan. Labs today. F/u 3 months or sooner if needed Assessment & Plan (07/14/2022 1:57 PM CDT): cdai = 0 +GISSELLE 1:160, +CARE NAVIGATOR, +chromatin. Low c4 (2014) Neg LAC, anticardiolipin, b2gp1, RPR Neg SSA/SSB Neg RF, CCP On hcq 400mg/d and aza 100mg BID (though has been missing more morning doses) Episode of pleuritic chest pains, was seen in ER in 04/09. CTA neg for PE but did show L pleural effusion and small pericardial effusion. Was treated with nsaids. Had nausea/reflux on naproxen. I changed to celebrex 200mg daily with omeprazole 20mg daily. The pleuritic symptoms have resolved and she stopped celebrex. Also received IM kenalog in 07/07 for persistent arthralgias/fatigue. Since last visit she found out she is , currently 13 weeks 2 days. Saw [facility] as she was found to have a twin with demise of one fetus by the time of her initial ultrasound. Remaining fetus appears healthy. Had neg SSA/SSB. On 81mg aspirin daily. Will monitor labs [id number]. Continue current treatment plan. Seen with Dr. Rice. F/u 6-8 weeks Assessment & Plan (05/15/2022 9:43 AM CDT): cdai = 22 Recent episode of pleuritic chest pain, was seen in ER. CTA neg for PE but did show L pleural effusion and small pericardial effusion. Started on nsaids. Had nausea/reflux on naproxen. I changed to celebrex 200mg daily with omeprazole 20mg daily. Since last visit the pleuritic symptoms have resolved and she stopped celebrex a few weeks ago. Also increased azathioprine to 100mg BID. Continue hcq 400mg. She continues to have joint pain, swelling, stiffness, and fatigue. Will continue same doses of meds and try 100mg IM kenalog today due to persistent lupus flare. Labs reviewed from 05/02/22. Repeat again next visit. F/u 1 month Assessment & Plan (04/16/2022 4:45 PM GENERAL INTERNIST): cdai = 0 Recent episode of pleuritic chest pain, was seen in ER. CTA neg for PE but did show L pleural effusion and small pericardial effusion. Started on nsaids. Had nausea/reflux on naproxen. I changed to celebrex 200mg daily with omeprazole 20mg daily. Pt feels some better but still some mild L sided chest pain. Advised to continue celebrex with PPI for several more weeks. If pain worsens we can use steroids. Will also increase azathioprine to 100mg BID. Continue hcq 400mg. Labs in 2 weeks. F/u 1 month Assessment & Plan (04/03/2022 1:26 PM GENERAL INTERNIST): cdai = 3 Low activity on exam. On hcq 400mg and azathioprine 50mg QAM and 100mg PM. More compliant with full dosing. Continue current regimen. Thinking about trying to conceive again in spring 2022. Labs today. F/u 3 months or sooner if needed. Assessment & Plan (01/02/2022 11:37 AM GENERAL INTERNIST): cdai = 7 Low activity on exam. On hcq 400mg and azathioprine 50mg QAM and 100mg PM. More compliant with full dosing. Continue current regimen. Thinking about trying to conceive again in spring 2022. Labs today. F/u 3 months or sooner if needed. Assessment & Plan (10/03/2021 11:09 AM CDT): cdai = 8 Low activity on exam. Feeling significantly better since receiving last IM kenalog in 09/05. We also increased dose of aza to 150mg/d but she admits to often forgetting to take the AM dose of 50mg. She does take 100mg at night along with her hcq 400mg. Her joint exam is much improved though still has a few swollen, tender joints. Will have her try to remember the AM dose of AZA so that she takes 150mg/d and observe. Labs today. F/u 3 months or sooner if needed. Assessment & Plan (09/04/2021 9:58 AM CDT): cdai = 31 High activity on exam. Pt has had increased joint pains and fatigue the last several months since having COVID in 07/06. She took an oral prednisone taper after her COVID illness which helped temporarily. On AZA to 100mg daily and hcq 400mg/d. Will increase aza to 150mg/d and give 100mg IM kenalog. Labs today. F/u 1 month or sooner if needed. Assessment & Plan (07/04/2021 12:05 PM CDT): cdai = 17 Moderate activity on exam. Pt has had increased joint pains and fatigue the last several months and she increased her AZA to 100mg daily about 3 months ago. On hcq 400mg/d. She declines steroids or further increase in AZA dose at this time. If worse in the future we can increase dose of azathioprine. May use tylenol or nsaids prn. Labs today. F/u 3 months or sooner if needed. Flu shot utd Assessment & Plan (03/28/2021 10:43 AM GENERAL INTERNIST): cdai = 3 Low activity on exam. On hcq 400mg/d and aza 50mg in pm. Will continue same regimen. If worse in the future we can increase dose of azathioprine. May use tylenol or nsaids prn. Labs today. F/u 3 months or sooner if needed. Flu shot utd Assessment & Plan (12/27/2020 10:22 AM GENERAL INTERNIST): cdai = 6 Low activity on exam. On hcq 400mg/d and aza 50mg in pm. She lowered her aza dose from 100mg to 50mg daily after last visit and seems to be doing fine on this. Will continue for now. May use tylenol or nsaids prn. Labs today. F/u 3 months or sooner if needed. Flu shot today Assessment & Plan (09/27/2020 10:23 AM CDT): cdai = 5 Low activity on exam. On hcq 400mg/d and aza 100mg in pm. Discussed that she may try lowering aza to 50mg daily and observe. May use tylenol or nsaids prn. Labs today. F/u 3 months or sooner if needed. Assessment & Plan (06/28/2020 11:33 AM CDT): cdai = 9.5 Low activity on exam. She reports significant improvement since last IM kenalog. She reports mildly increased joint pains, fatigue with weather changes and menses (weaning off ). On hcq 400mg/d and aza 100mg in pm. May use tylenol or nsaids prn. Discussed observing for now, could increase aza dose if not doing well. Labs today. F/u 3 months or sooner if needed. Assessment & Plan (03/29/2020 5:39 PM GENERAL INTERNIST): C/o increased fatigue and joint pains for the last month or two. Has more tender swollen joints on exam today. On hcq 400mg/d and aza 100mg in pm. May use tylenol prn. Delivered by on 07/11/19 and baby healthy. Is . Discussed treating flare with IM kenalog and pt would like to proceed. 100mg IM today. Labs today. F/u 1 month. Consider increasing aza dose if not doing well. Assessment & Plan (12/14/2019 4:17 PM CDT): Doing well. On hcq 400mg/d and aza 100mg in pm. May use tylenol prn. Delivered by on 07/11/19 and baby healthy. No flares since then. She has been able to resume normal activities including exercise. Is . Labs today. F/u 3 months or sooner if worse. Flu shot today. Assessment & Plan (09/01/2019 4:21 PM CDT): Doing well. On hcq 400mg/d and aza 100mg in pm. May use tylenol prn. Delivered by on 07/11/19 and baby healthy. No flares since then. She has been able to resume normal activities including exercise. Is . Pulmonologist started progestin only ocp for now. She has not ruled out future . Discussed that hormones especially estrogen can sometimes cause lupus flares/increase risk of clots. Once done having children would recommend sterilization. Labs today. F/u 3 months or sooner if worse. Assessment & Plan (06/15/2019 11:07 AM CDT): Doing well. On hcq 400mg/d and aza 100mg in pm. May use tylenol prn. Currently 35 weeks . She did great during last so will continue current regimen. F/u with obgyn as directed. F/u 3 months or sooner if worse. Will place order for labs to be done at [facility]. Assessment & Plan (04/18/2019 4:07 PM GENERAL INTERNIST): Stable. Continue hcq. Hold aza while on valtrex for shingles. Keep next regularly scheduled appt. Assessment & Plan (03/17/2019 1:05 PM GENERAL INTERNIST): Doing well. On hcq 400mg/d and aza 100mg in pm. Labs today. May use tylenol prn. Currently 22 weeks . She did great during last so will continue current regimen. F/u with obgyn as directed. F/u 3 months or sooner if worse. Assessment & Plan (11/29/2018 10:49 AM CDT): Doing well. cdai is 6. On hcq 400mg/d and aza 100mg in pm. Labs today. May use tylenol prn. Currently 7 weeks . She did great during last so will continue current regimen. F/u with obgyn, may see MFM at least once. F/u 3 months or sooner if worse. Assessment & Plan (08/30/2018 9:56 AM CDT): Doing well. cdai is 3. On hcq 400mg/d and aza 100mg in pm. Labs today. May use tylenol prn. She is contemplating another in the future and since doing well would not make any changes. F/u 3 months or sooner if worse. Assessment & Plan (06/07/2018 12:45 PM CDT): Doing well. cdai is 5 On hcq 400mg/d and aza 100mg in pm. Labs today. May use tylenol prn. F/u 3 months or sooner if worse. Assessment & Plan (03/01/2018 11:40 AM GENERAL INTERNIST): Doing well. cdai is 4. On hcq 400mg/d and aza 100mg in pm. Labs today. Not currently . F/u 3 months. utd flu shot refilled meds. aza 50 bid, hcq 400 daily. Assessment & Plan (11/23/2017 11:43 AM CDT): Doing well. On hcq 400mg/d and aza 100mg in pm. Labs today. Studies of azathioprine in are conflicted but generally <1% of medication pass through has been noted. F/u 3 months. Flu shot today. Assessment & Plan (08/23/2017 5:19 PM CDT): Flare improved with oral steroid taper. On hcq 400mg/d and aza 100mg in pm. Labs today. Studies of azathioprine in are conflicted but generally <1% of medication pass through has been noted. F/u 3 months Assessment & Plan (06/22/2017 11:13 AM CDT): Appears to be having a flare. Increased joint pains, swelling, fatigue and low C3 on last labs. On hcq 400mg/d and aza 100mg in pm. Labs today. Will use low dose prednisone taper for now, but if not improving will increase azathioprine back to 100mg BID. Studies of azathioprine in are conflicted but generally <1% of medication pass through has been noted. Seen with Dr. Rice. f/u 1 month Assessment & Plan (05/28/2017 2:44 PM CDT): Low disease activity with hcq bid and aza 100mg in pm. Labs today. F/u 3 mos, sooner if needed. In the past she has had flares with dose reduction but is currently doing well. F/u 3months. Studies of azathioprine in are conflicted but generally <1% of medication pass through has been noted. Assessment & Plan (02/23/2017 4:28 PM GENERAL INTERNIST): Low disease activity with hcq bid and aza 200mg in pm. Currently 8 weeks post . 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 Labs today. F/u 3 mos, sooner if needed. Pt seen with Dr. Rice. Dr. Rice suggested reducing the dose to 100mg at hs for now and observing. In the past she has had flares with dose reduction. F/u 3months. Studies of azathioprine in are conflicted but generally <1% of medication pass through has been noted. Assessment & Plan (11/16/2016 4:18 PM CDT): Moderate disease activity with hcq bid and aza. Currently 32 weeks , so will con't with current regimen while remaining under the care of her ob. Labs today. F/u 3 mos, sooner if needed. Assessment & Plan (08/24/2016 4:00 PM CDT): Low disease activity with hcq bid and aza. Currently 20weeks , so will con't with current regimen while remaining under the care of her ob. Labs today. F/u 3 mos, sooner if needed. Moderate persistent asthma with status asthmatic us 05/29/2016 Overview (07/03/2022): - Severity classification: Mild intermittent - Current regimen: Albuterol PRN Had ER visit for exacerbation last but has never been hospitalized for asthma We discussed that albuterol is a safe medication in . If she finds she is using Albuterol more than 2 nights per month or more than 2 days per week, would recommend step-up therapy to optimize maternal and well-being. Assessment & Plan (08/10/2023 8:52 PM CDT): Worsening. Discussed role of preventative inhaler and rescue inhaler. We will initiate breo ellipta once daily. Continue albuterol prn. Goal is not to have to use albuterol very often. I did rx albuterol nebulizer to use prn as she had been borrowing a friends when needed. Resolved Problems Problem Noted Date Diagnosed Date Resolved Date Annual physical exam 08/10/2023 025 Assessment & Plan (08/10/2023 8:53 PM CDT): -Recommended: Healthy diet. Avoiding junk food/fast food. -30 minutes of exercise most days of the week. Increase to 45 minutes for weight loss. Health Maintenance reviewed - labs as ordered.. recommended vaccines reviewed with her -Influenza vaccine every year Recommend: - Topic Date Due Varicella Vaccines (1 of 2 - 13+ 2-dose series) Never done Pneumococcal vaccine <65 (2 of 2 - PCV) 03/18/2008 -F/u in 1 year for Annual PE or sooner if needed History of delivery 11/26/2022 08/10/2023 Systemic lupus erythematosus affecting 07/02/2022 08/10/2023 Overview (11/27/2022): Last Flare: 02/2022 (labs) and 03/2022 (pleural effusions treated with Celebrex) Current regimen: Hydroxychlorquine 400mg qAM, Azathioprine 50mg qAM, 100 mg qPM Current symptoms: joint pain improved with Previously counseled Alejandra has q3 month follow-up with rheumatology this and they will manage these labs. Plan/Summary of Recommendations [x] Baseline preeclampsia labs at initial OB visit (CBC/CMP/UPC) 05/02/22: Cr 0.72, UP:C 0.1 [] Eye exam up to date (if on plaquenil- needs baseline and 5 years later start annually) [x] Aspirin 81mg daily starting at 12 weeks for preeclampsia prevention [x] Serial growth ultrasonography q4 weeks starting at 24 weeks [x] testing twice weekly starting at 32 weeks- discussed and scheduled Assessment & Plan (11/27/2022 3:01 PM CDT): Patient believes she is in her first flare. She has been in contact with rheum who plans to continue on her current regimen. Pt knows to call with worsening symptoms. Plan for 2x/weekly testing and continued serial growths/MFM visits. Delivery will be scheduled for 39 weeks. Twin with single i ntrauterine , first trimester, fetus 1 06/29/2022 08/10/19 24 Overview (11/25/2022): At initial ultrasound, noted to have di-di twins with demise of twin 1, measures 8w4d. She was counseled on the potential for inaccurate [facility]IPT in this setting [facility] and she had a normal NT scan today. We overall discussed that with early demise of one twin, we do not expect modifications of management or risks of . She and her partner were reassured by this information. History of section complicating 06/29/2022 08/10/2023 Overview (07/03/2022): Alejandra has had 2 deliveries for unsuccessful inductions of labor: she would like a scheduled repeat . Supervision of high risk pre gnancy in second trimester 06/29/2022 08/10/2023 Overview (12/28/2022): [x] Co-management [x] Blue Team Referring Provider: Michaela Chandra [phone] [] or Medicare Insurance [x] Dating Criteria: LMP 04/12/22 with ROXANA 01/17/23 [x] Labs: Rh [A+], Ab [negative], Rubella [immune], HIV [non-reactive], HepBSAg [non-reactive], RPR [non-reactive], Hep C [non-reactive], Varicella [positive], GC/CT [negative/negative] [x] Genetic Screening: Normal NT 07/03/22 [x] CBC/Hgb 12.8/37.3/plt 223 [x] Early 1hr GTT (if indicated) not indicated [x] UCx: 06/19/22 no growth [x] Pap: 01/14/22: NILM; HPV negative [x] LD ASA (if indicated) starting at 12 weeks: [] EPDS [ ]; PNBHS referral (if indicated) 2nd Tri Labs: [x] Anatomy ultrasound: [x] CBC/Ferritin/1hr gtt at 24-28wks: CBC: 12.5/37.7/173, 1hr gtt: 83 [x] Flu Shot (Oct-Jan): [x] Tdap (27-36wks): [] COVID/RSV vaccine- education provided 11/27/2022 3rd Tri Labs and delivery with [facility] group. GBS sent 12/22/2022 - negative Assessment & Plan (07/14/2022 1:55 PM CDT): Was evaluated by MFM but may continue with regular OB for the remainder of the . Will also check her lupus labs [id number] Supervision of other normal , antepartum 06/12/2022 08/10/2023 Overview (01/05/2023): Flores , bill twins with loss of 1 twin @ NOB ~9wks -h/o c/sx2 both for failed IOL -Lupus-current regimen 400mg hcq, Azathioprine 50mg QAM and 100mg QPM -MFM co-managed -serial growth US @ 28wks -twice weekly NSTs @ 32wks -labs Qtri with rheum -39 wk delivery -asthma -h/o shingles in last -rLTCS sched 01/12/2023 @ 0730arr/0930start, pt aware, labs ordered, ancef ordered -breech @ 36wks [x] Initial BMI: 29.66 [x] Labs: completed [x] Genetic Screening: NT scan, no cfdna d/t twin preg w/ 1 demise [x] Baby ASA: yes @ 12wks [x] 1hr GCT at 24-28wks: nml, 83 [x] Tdap (27-36wks): 11/26/22 [x] Flu Shot: 11/26/22 [x] COVID vaccine: vaccinated & boosted [] Rhogam (if Rh neg): n/a A+ [x] GBS at 36 wks: negative [] [x] control method: options discussed on 12/08, vasectomy and minipill bridge [x] 39 weeks discussion of IOL vs. Expectant management: CS scheduled [x] Mode of delivery: [x] For C/S bottle of CHG 4% and hand out provided @ 36wks Teaching: [x] 1st visit [x] 28-30 week [x] 36 week Pleurisy 04/16/2022 07/02/2022 Assessment & Plan (05/15/2022 9:43 AM CDT): See discussion. Evaluated in ER and CTA shows pleural effusion, pericardial effusion in 2 Symptoms resolved with course of nsaids Assessment & Plan (04/16/2022 4:46 PM GENERAL INTERNIST): See discussion. Evaluated in ER and CTA shows pleural effusion, pericardial effusion in 04/09 Chest tightness 09/04/2021 07/02/2022 Assessment & Plan (10/03/2021 11:09 AM CDT): Better since last IM kenalog but still occasional symptom. Still needs to do cxr Assessment & Plan (09/04/2021 10:04 AM CDT): Intermittent L-sided chest tightness since having COVID in 07/06. Not exactly pleuritic. Could be musculoskeletal. Does not occur when exercising. No new dyspnea or cough. Will check cxr. Other fatigue 06/28/2020 08/10/2023 Assessment & Plan (06/03/2023 11:57 AM CDT): Could be multifactorial. Lupus appears to be stable so less likely to be due to this. Will check labs. Add vit D and thyroid studies. Assessment & Plan (06/28/2020 11:34 AM CDT): Likely due to hormone changes, weather, recent COVID vaccination, but could also be due to SLE. Will also check tsh with labs Hip pain 06/28/2020 07/02/2022 Assessment & Plan (06/28/2020 11:35 AM CDT): Mild R anterior and posterior hip pain for the last few weeks. Has been running and working out quite a bit. Pain is not limiting her activities though she is aware of it while exercising. Will xray due to risk of AVN in lupus, though I don't think this is likely to be the source of her pain. Consider PT if not improving and pt will let me know if she wants this. state 08/22/2019 11/25/2020 care following delivery 07/11/2019 08/10/2023 Overview (01/15/2023): # ID: Afebrile. No signs/symptoms of infection. # Heme: EBL 600 mL. Hemodynamically stable. # CV/Pulm: Vital signs stable, within normal limits. #Asthma: Asthma attack overnight, breathing treatment ordered. Will CTM, albuterol prn ordered. 01/14 symptoms well-controlled. #Wound Vac: Removed 01/15, incision intact, no redness, warmth or drainage # GI/: Tolerating PO. Voiding spontaneously. # SLE: Follows with rheumatology. Baseline CBC/CMP/UPC wnl. Current regimen: Hydroxychlorquine 400mg qAM, Azathioprine 50mg qAM, 100 mg qPM. # Pain: Controlled with above regimen. # MOC: Progestin-only pills as bridge to partner vasectomy # MOF: . Urine drug screen not indicated. Patient informed of results: N/A. # Post DVT prophylaxis: The patient has the following MAJOR risk factors none and the following MINOR risk factors BMI 30-39, delivery, and parity >/=3. enoxaparin 40 mg daily ordered for VTE prophylaxis. # Disposition: Follow up to be scheduled with primary OB. Desires discharge home today. Encounter for elective induction of labor 07/10/2019 07/13/2019 Overview (07/10/2019): 1. Elective Induction of Labor: Admit to L&D. Consents signed and placed in chart. Send CBC/T&S. Induction of labor with OT. Plan for CC when able. 2. FWB: Continuous monitoring. Reactive NST 3. ID: HIV negative. GBS negative. Membrane Status: intact 4. ND asthma: Continue albuterol PRN 5. H/o CS: Desires TOLAC, counseled in office. 6. SLE: Well controlled on home plaquenil and imuran. 7. Indications for UDS: none 8. MOF: Plans to breastfeed. 9. MOC: Plans to use OCPs v condoms for contraception. 10. Pain management: Desires epidural when requested. 11. Post DVT prophylaxis: Patient has the following moderate risk factors: BMI>30. Her post prophylaxis plan is SCDs and early ambulation Fall (on) (from) other stair s and steps, initial encounter 02/18/2019 06/20/2019 Overview (02/18/2019): [facility] visit 02/18/19: --+FHTs. No ctx on toco. SVE closed/long/high --Abd soft, NT. Lower back pain improved w/ APAP. Advised to cont APAP/heat prn --No e/o SROM. Wet prep c/w yeast. Diflucan Rx given. --[facility] prec rev'd. --Keep f/u scheduled 02/24. Vaginal bleeding in 01/04/2019 04/21/2019 Overview (01/04/2019): 01/04/19 [facility] visit: Noticed blood in the toilet with voiding and on the toilet paper. Most recently, in [facility], bleeding on toilet paper was more brown. Speculum Exam: small amount dark red blood in vault, negative valsalva Cervix: visually closed Wet Prep: normal Rh +. No so SAB or cervicitis. Reassured. Precautions given. Supervision of other normal , antepartum 11/21/2018 07/13/2019 Overview (06/30/2019): -Lupus on Imuran and Plaquenil; followed by Dr. Rice. Will obtain 1-time MFM consult --serial growth scans, testing at 32 weeks, delivery by 39 weeks per consult -S/P karthikeyan in April 2019 -Hx of ltcs in 2016 with MFM for failed IOL, NRFHR LGA @ 36wks- 99% 06/20/19 Op note reviewed. Reviewed TOLAC and would like to try. She was counseled about approx 50% chance of success. Wants [facility] if she has a C/S, reviewed will get if available. IOL 07/10/19 @ 2000, pt aware [x] Labs: !st trimester completed [x] Genetic Screening: Declined [x] Baby ASA: Yes (lupus) [x] 1hr GCT at 24-28wks:62 [x] Tdap (27-36wks):05/16/19 Nicolas [x] Flu Shot: getting at cafeteria operator's office today [] Rhogam (if Rh neg): [] GBS at 36 wks: [x] [x] control method: OCP's vs condoms [x] 39 weeks discussion of IOL vs. Expectant management: [x] Mode of delivery: vd , Girl and Dr. Escalona @ Assessment & Plan (06/15/2019 11:08 AM CDT): Doing well, 35 weeks Placenta previa specified as without hemorrhage 10/05/2018 10/05/2018 Overview (10/05/2018): Placenta previa without hemorrhage, antepartum Acute vulvitis 10/04/2018 12/18/2021 delivery delivered 01/17/2017 10/05/2018 Encounter for medical examin ation to establish care 08/24/2016 07/03/2022 Overview (06/07/2018): Monitor labs Assessment & Plan (05/15/2022 8:42 AM CDT): Will monitor labs utd eye exam utd COVID vaccine. Had new booster Flu shot utd utd tdap. [id number] in 2007. She should now get a dose of PCV15 or PCV20 May also get shingles since immune compromised Assessment & Plan (04/16/2022 4:46 PM GENERAL INTERNIST): Will monitor labs utd eye exam utd COVID vaccine. Had new booster Flu shot utd utd tdap. [id number] in 2007. She should now get a dose of PCV15 or PCV20 May also get shingles since immune compromised Assessment & Plan (04/03/2022 9:11 AM GENERAL INTERNIST): Will monitor labs utd eye exam utd COVID vaccine. Had new booster Flu shot utd utd tdap. Onhbplkbl22 in 2007. She should now get a dose of PCV15 or PCV20 May also get shingles since immune compromised Assessment & Plan (03/28/2022 2:07 PM GENERAL INTERNIST): A(n) initial well visit to establish care has been performed today. Alejandra Rodriguez is up to date on screening tests. She is in need of None- no screening indicated at this time. She is not up to date on needed preventative vaccinations; She is in need of Pneumonia (Prevnar-13 or Pneumovax-23). We discussed healthy lifestyle habits, educational material has been given. Medications reviewed, changes documented as per the medical record and discussed with patient along with risks vs benefits. Assessment & Plan (01/02/2022 11:41 AM GENERAL INTERNIST): Will monitor labs utd eye exam utd COVID vaccine. Had new booster Flu shot utd utd tdap. Pidzcozso40 in 2007. She should now get a dose of PCV15 or PCV20 May also get shingles since immune compromised Assessment & Plan (10/03/2021 10:42 AM CDT): Will monitor labs utd eye exam utd COVID vaccine. had 3rd dose Flu shot utd utd tdap. [id number] in 2007. Script sent in for [id number] Assessment & Plan (09/04/2021 9:58 AM CDT): Will monitor labs utd eye exam utd COVID vaccine. had 3rd dose Flu shot utd utd tdap. [id number] in 2007. Script sent in for [id number] Assessment & Plan (07/04/2021 10:55 AM CDT): Will monitor labs utd eye exam utd COVID vaccine. had 3rd dose Flu shot utd utd tdap. [id number] in 2007. Script sent in for [id number] Assessment & Plan (03/28/2021 10:45 AM GENERAL INTERNIST): Will monitor labs utd eye exam utd COVID vaccine. had 3rd dose Flu shot utd utd tdap. Dubhrplup01 in 2007. Script sent in for [id number] Assessment & Plan (12/27/2020 10:43 AM GENERAL INTERNIST): Will monitor labs utd COVID vaccine. Eligible for 3rd dose now Flu shot today. utd tdap. Ntcxueqfx22 in 2007. Script sent in for [id number] Assessment & Plan (09/27/2020 10:23 AM CDT): Will monitor labs utd COVID vaccine. Discussed possible booster shot once we have more information from [facility] utd tdap. Iuuiovitp22 in 2007 Assessment & Plan (06/28/2020 11:34 AM CDT): Will monitor labs Assessment & Plan (03/29/2020 8:58 AM GENERAL INTERNIST): Will monitor labs Assessment & Plan (12/14/2019 4:18 PM CDT): Will monitor labs Assessment & Plan (09/01/2019 3:07 PM CDT): Will monitor labs utd flu shot Assessment & Plan (06/15/2019 10:48 AM CDT): Will monitor labs utd flu shot Assessment & Plan (03/17/2019 8:59 AM GENERAL INTERNIST): Will monitor labs utd flu shot Assessment & Plan (11/29/2018 10:48 AM CDT): Will monitor labs Flu shot today Assessment & Plan (08/30/2018 9:02 AM CDT): Will monitor labs Assessment & Plan (06/07/2018 12:46 PM CDT): Will monitor labs Assessment & Plan (03/01/2018 9:18 AM GENERAL INTERNIST): Labs today. F/u 3 mos, sooner if needed. Assessment & Plan (02/23/2017 2:12 PM GENERAL INTERNIST): Labs today. F/u 3 mos, sooner if needed. Assessment & Plan (11/16/2016 4:18 PM CDT): Labs today. F/u 3 mos, sooner if needed. Assessment & Plan (08/24/2016 4:01 PM CDT): Labs today. F/u 3 mos, sooner if needed. Autoimmune hepatitis (CMS/HCC) 06/24/2016 07/02/2022 High-risk 05/29/2016 09/10/19 24 Maternal obesity syndrome 05/28/2016 BMI 27.0-27.9,adult 06/18/2015 07/04/19 23 Atopic rhinitis 07/01/2013 07/02/2022 Overview (05/21/2016): Allergic rhinitis Abnormal liver enzymes 07/01/201307/02 Overview (05/21/2016): Abnormal liver enzymes Acne 07/01/2013 07/02/2022 Overview (05/21/2016): Acne Corneal size and shape anomalies 07/01/2013 07/02/2022 Overview (05/21/2016): Irregularity of cornea contour Encounters Date Type Department Care Team Description 06/28/2024 2:52 PM CDT - 06/28/2024 11:59 PM CDT Hospital Encounter [facility] - Ultrasound [address], 7th [address], [address] [place] [address] Irregular menses Discharge Disposition: Discharge to home or self care 06/28/2024 Results Follow-Up [facility] Obstetrics and Gynecology [address] 1st Floor [address] [place] [address] WaPoonam ochoa Rai, NP US Pelvis Complete 06/19/2024 9:40 AM CDT Office Visit [facility] Obstetrics and Gynecology [address] [place] [address] Outpatient [facility] 7th Floor [address] [place] [phone] Poonam Alexander Rai, NP Irregular menses (Primary Dx) 06/16/2024 Results Follow-Up [facility] [address] [place] [phone] Idalia Bolwes PA C4 complement, CBC with auto differential, Comprehensive metabolic panel, Additional followed-up results: 6 06/15/2024 9:45 AM CDT Office Visit [facility] [address] [place] [phone] Idalia Bowles PA Systemic lupus erythematosus, unspecified SLE type, unspecified organ involvement status (HCC) (Primary Dx); High risk medications (not anticoagulants) long-term use 06/13/2024 Telephone [facility] Ob[facility]etrics and Gynecology [address] [place] [address] 7th Floor [address] [place] [phone] Susana Diaz RN Menstrual Problem 06/06/2024 4:10 PM CDT Ancillary Procedure [facility] at [address] [phone] Pain in left foot 06/06/2024 4:05 PM CDT Ancillary Procedure [facility] at [address] [phone] Moderate left ankle sprain, initial encounter 06/06/2024 3:45 PM CDT Office Visit [facility] at [address] [phone] Francesca Hawley NP Pain in left foot (Primary Dx); Moderate left ankle sprain, initial encounter 06/06/2024 Results Follow-Up [facility] at [address] [phone] Francesca Hawley NP XR Foot Left 3 or More Views from Last 3 Months Immunizations Immunization Administration Dates Next Due Influenza, Quadrivalent, Irena l Culture-based MDCK, Antibiotic Free, Intramuscular 12/14/2019,11/29/2018,11/23/2017 Influenza, Quadrivalent, Irena l Culture-based MDCK, Preservative Free, Antibiotic Free, Intramuscular 11/26/2022,12/04/2021 Influenza, Quadrivalent, Spl it, Intramuscular 12/27/2020 Influenza, Split 12/04/2011 Influenza, Trivalent, IM (MDV) 12/25/2014 Influenza, Trivalent, Preser vative Free, Intramuscular 12/17/2023,11/17/2016 Influenza, Unspecified 02/15/2023(Deferr ed: Patient Refused),02/15/2022(Deferred: Patient Refused),11/15/2016 Pfizer SARS-CoV-2 Monovalent Vaccination (12+ Yrs) PURPLE 05/11/2020,04/18/2020 Pneumococcal Polysaccharide PPV23 03/18/2007 Tdap 11/26/2022,05/16/2019,10/27/2016 Surgical History Surgery Date Site/Laterality Comments SECTION 02/16/2016 - 02/14/2017 Medical History Medical History Date Comments Placenta previa specified as without hemorrhage Placenta previa without hemo rrhage, antepartum - (Added by TW Conv) Asthma Mild Shingles 04/2019 Liver disease hx liver disease normal the last 8yrs Lupus 2007 GERD (gastroesophageal reflu x disease) Keratoconus of right eye Twin with single intrauterine , first trimester, fetus 1 06/29/2022 At initial ultrasound, noted to have di-di twins with demise of twin 1, measures 8w4d. She was counseled on the potential for inaccurate NIPT in this setting by [facility] group and she had a normal NT scan today. We overall discussed that with early demise of one twin, we do not expect modifications of management or risks of . She and her partner were reassured by this information. High-risk 05/29/2016 Autoimmune disease 2007 Family History Medical History Relation Name Comments Other Brother 1 juvenile arthri tis; No Known Problems Brother 2 Rheum arthritis Father Autoimmune disease Father's Sister Heart disease Maternal Grandfather Virgil Hypertension Maternal Grandmother Gerald No Known Problems Mother Heart disease Mother's Sister Vera Stroke Mother's Sister Vera COPD Paternal Grandfather Al Caringer Leukemia Paternal Grandmother No Known Problems Sister Relation Name Status Comments Brother 1 Alive Brother 2 Alive Father Alive Father's Sister Alive Maternal Grandfather Virgil Maternal Grandmother Connore Alive Mother Alive Mother's Sister Vera Paternal Grandfather Al Caringer Paternal Grandmother Sister Alive Social History Tobacco Use Types Packs/Day Years Used Date Smoking Tobacco: Never Smokeless Tobacco: Never Tobacco Cessation:Counseling Given: Not Answered Alcohol Use Standard Drinks/Week Comments Yes 0 [...] How often do you attend chur or latter day services? More than 4 times per year 01/13/2023 Do you belong to any clubs o r organizations such as jehovah's witness groups, unions, fraternal or athletic groups, or [...] place to sleep or slept in a mcfp (including now)? 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 Main C ampus ([facility] L AND D PROCEDURE) 2022 Term 39w 2d 0h 02m 0h 02m 3.85 kg (8 lb 7.8 oz) M C-Sec tion Combin ed Spinal /Epidu ral N Livin g 8 9 [facility] er Jason Felipe , Kayleen maria MD Complications:None Delivery Location:[facility] Main C ampus ([facility] L AND D PROCEDURE) Comments 2020: RLTCS ([facility] 07/10 @ 830A ) matthew Dumont 2022- rLTCS- AV- baby boy name tba breech presentation Last Filed Vital Signs Vital Sign Reading Time Taken Comments Blood Pressure 127/73 06/19/2024 9:40 AM CDT Pulse 64 06/15/2024 9:49 AM CDT Temperature 36.7 C (98.1 F) 06/06/2024 3:48 PM CDT Respiratory Rate 21 06/06/2024 3:48 PM CDT Oxygen Saturation 99% 06/15/2024 9:49 AM CDT Inhaled Oxygen Concentration - - Weight 96.4 kg (212 lb 9.6 oz) 06/19/2024 9:40 A M CDT Height 172.7 cm (5' 8) 06/19/2024 9:40 AM CDT Body Mass Index 32.33 06/19/2024 9:40 AM CDT Plan of Treatment Health Maintenance Due Date Last Done Comments Varicella Vaccines (1 of 2 - 13+ 2-dose series) 2002 Hepatitis B Screening 2007 Zoster Vaccine (1 of 2) 01/31/2008 Pneumococcal vaccine <65 (2 of 2 - PCV) 03/18/2008 03/18/2007 Cervical Cancer Screening 12/18/2022 12/18/2021, Covid-19 Vaccine ( season) 2023 12/04/2021, 01/19/2021, 05/11/2020, Additional history exists Depression Screening 02/24/2024 02/23/2023, 01/04/2023, 01/04/2023, Additional history exists Regular Well Visit/Exam 18-64 08/05/2024 08/06/2023, 03/25/2022, 12/18/2021 DTaP/Tdap/Td Vaccine (4 - Td or Tdap) 11/26/2032 11/26/2022, 05/16/2019, 10/27/2016 Hepatitis C Screening Completed 06/25/2022, 016 Influenza Vaccine Completed 12/17/2023, , 12/04/2021, Additional history exists HPV Vaccines Aged Out No longer eligi ble based on patient's age to complete this topic Procedures Procedure Name Priority Date/Time Associated Diagnosis Comments HEPATIC FUNCTION PANEL Routine 07/06/2024 9:50 AM CDT Elevated liver enzymes US PELVIS COMPLETE Schedule Routine, Read Routine (OP Routine) 06/28/2024 2:52 PM CDT Irregular menses C3 COMPLEMENT Routine 06/15/2024 10:26 AM CDT Systemic lupus erythematosus, unspecified SLE type, unspecified organ involvement status (HCC) High risk medications (not anticoagulants) long-term use ANTI-DOUBLE STRANDED DNA ANTIBODIES Routine 06/15/2024 10:26 AM CDT Systemic lupus erythematosus, unspecified SLE type, unspecified organ involvement status (HCC) High risk medications (not anticoagulants) long-term use PROTEIN / CREATININE RATIO, URINE, RANDOM Routine 06/15/2024 10:26 AM CDT Systemic lupus erythematosus, unspecified SLE type, unspecified organ involvement status (HCC) High risk medications (not anticoagulants) long-term use ERYTHROCYTE SEDIMENTATION RATE Routine 06/15/2024 10:26 AM CDT Systemic lupus erythematosus, unspecified SLE type, unspecified organ involvement status (HCC) High risk medications (not anticoagulants) long-term use CRP (ACUTE PHASE) Routine 06/15/2024 10:26 AM CDT Systemic lupus erythematosus, unspecified SLE type, unspecified organ involvement status (HCC) High risk medications (not anticoagulants) long-term use COMPREHENSIVE METABOLIC PANEL Routine 06/15/2024 10:26 AM CDT Systemic lupus erythematosus, unspecified SLE type, unspecified organ involvement status (HCC) High risk medications (not anticoagulants) long-term use CBC WITH AUTO DIFFERENTIAL Routine 06/15/2024 10:26 AM CDT Systemic lupus erythematosus, unspecified SLE type, unspecified organ involvement status (HCC) High risk medications (not anticoagulants) long-term use C4 COMPLEMENT Routine 06/15/2024 10:26 AM CDT Systemic lupus erythematosus, unspecified SLE type, unspecified organ involvement status (HCC) High risk medications (not anticoagulants) long-term use XR ANKLE LEFT 3 OR MORE VIEWS Schedule LEIF, Read LEIF (Appt Today, Awaiting Results) 06/06/2024 4:06 PM CDT Moderate left ankle sprain, initial encounter XR FOOT LEFT 3 OR MORE VIEWS Schedule LEIF, Read LEIF (Appt Today, Awaiting Results) 06/06/2024 4:06 PM CDT Pain in left foot HEPATITIS C ANTIBODY Routine 06/25/2022 11:41 AM CDT Supervision of other normal , antepartum Lupus anticoagulant affecting in first trimester, antepartum PAP AND HIGH RISK HPV, REFLEX TO GENOTYPING Routine 12/18/2021 12:25 PM CDT Encounter for Papanicolaou smear for cervical cancer screening from Last 3 Months or Most Recently Relevant to Health Maintenance Results * Hepatic function panel (07/06/2024 9:50 AM CDT) Pathologist [facility] Protein, Total 7.2 6.4 - 8.4 g/dL [facility] Albumin 4.4 3.6 - 5.1 g/dL [facility] Globulin 2.8 2.2 - 4.0 g/dL (calc) [facility] Alb/glob ratio 1.6 0.9 - 2.3 (calc) [facility] Bilirubin, total 0.5 0.2 - 1.2 mg/dL [facility] Bilirubin, direct 0.1 < OR = 0.2 mg/dL [facility] Bilirubin, indirect 0.4 0.2 - 1.2 mg/dL (calc) [facility] Alk phos 33 31 - 125 U/L [facility] AST 22 10 - 30 U/L [facility] ALT (SGPT) 17 6 - 29 U/L [facility] Blood 07/06/2024 9:50 AM CDT 07/06/2024 9:51 AM CDT Idalia KRAUSE LAB BLOOD ORDERABLES Fin al Result [facility] [address] [place] [address] * US Pelvis Complete (06/28/2024 2:52 PM CDT) Cul de Sac No free fluid visualized [facility] Endometrial Thickness 6.5 mm&millim eters [facility] Anatomical Region Laterality Modality Pelvis N/A Ultrasound 06/28/2024 2:52 PM CDT Impressions 06/28/2024 4:04 PM CDT 1- Normal appearing uterus 2- Normal appearing ovaries 3- No adnexal masses are identified. Narrative Procedure Note Declan Mcdonnell MD - 06/28/2024 IMPRESSION: 1- Normal appearing uterus 2- Normal appearing ovaries 3- No adnexal masses are identified. Poonam Alexander DRAGLINE OILER IMG US PROCEDURES Final Result * Anti-double stranded DNA abs (06/15/2024 10:26 AM CDT) DNA (DS) ab 1 IU/mL [facility] Comment: IU/mL Interpretation < or = 4 Negative 5-9 Indeterminate > or = 10 Positive Blood 06/15/2024 10:2 6 AM CDT 06/15/2024 10:27 AM CDT Idalia Bowles SD LAB BLOOD ORDERABLES Fin al Result Performing Organization Address [facility] de Phone Number [facility] [address] [place] [address] * C4 complement (06/15/2024 10:26 AM CDT) Complement component C4C 15 15 - 57 mg/dL [facility] Blood 06/15/2024 10:2 6 AM CDT 06/15/2024 10:27 AM CDT Idalia Cruzaury SD LAB BLOOD ORDERABLES Fin al Result Performing Organization Address [facility] de Phone Number QUEST [facility] [address] [place] [address] * CBC with auto differential (06/15/2024 10:26 AM CDT) Pathologist [facility] WBC 6.1 3.8 - 10.8 Thousand/u L [facility] RBC, POC 4.34 3.80 - 5.10 Million/uL [facility] Hgb 13.2 11.7 - 15.5 g/dL [facility] Hct 40.6 35.0 - 45.0 % [facility] MCV 93.5 80.0 - 100.0 fL [facility] MCH 30.4 27.0 - 33.0 pg [facility] MCHC 32.5 32.0 - 36.0 g/dL [facility] Comment: For adults, a slight decrease in the calculated MCHC value (in the range of 30 to 32 g/dL) is most likely not clinically significant; however, it should be interpreted with caution in correlation with other red cell parameters and the patient's clinical condition. Rdw 12.5 11.0 - 15.0 % [facility] Platelets 222 140 - 400 Thousand/u L [facility] MPV 12.2 7.5 - 12.5 fL [facility] Neutrophils, abs 3,703 1,500 - 7,800 cells/uL [facility] Lymphocytes, abs 1,769 850 - 3,900 cells/uL [facility] Monocyte abs 519 200 - 950 cells/uL [facility] Eosinophils, abs 67 15 - 500 cells/uL [facility] Basophils, abs 43 0 - 200 cells/uL [facility] Neutrophils 60.7 % [facility] Lymphocyte pct 29.0 % [facility] Monocytes 8.5 % [facility] Eosinophils 1.1 % [facility] Basophils 0.7 % [facility] Blood 06/15/2024 10:2 6 AM CDT 06/15/2024 10:27 AM CDT Idalia KRAUSE LAB BLOOD ORDERABLES Fin al Result [facility] [address] [place] [address] * (ABNORMAL) Protein / creatinine ratio, urine, random (06/15/2024 10:26 AM CDT) Creatinine, ur 10(L) 20 - 275 mg/dL [facility] Protein/creatin ine ratio NOTE 24 - 184 mg/g creat [facility] Comment: THE PROTEIN VALUE IS LESS THAN 4 MG/DL THEREFORE WE ARE UNABLE TO CALCULATE EXCRETION AND/OR CREATININE RATIO. Protein/Creatin ine Ratio NOTE 0.024 - 0.184 mg/mg creat [facility] Protein, ur, quant <4(L) 5 - 24 mg/dL [facility] Urine 06/15/2024 10:2 6 AM CDT 06/15/2024 10:27 AM CDT Idalia Bowles SD LAB URINE ORDERABLES Fin al Result Performing Organization Address [facility] Co de Phone Number QUEST [facility] [address] [place] [address] * Erythrocyte sedimentation rate (06/15/2024 10:26 AM CDT) Erythrocyte sedimentation rate 9 < OR = 20 mm/h [facility] Blood 06/15/2024 10:2 6 AM CDT 06/15/2024 10:27 AM CDT Idalia Bowles SD LAB BLOOD ORDERABLES Fin al Result Performing Organization Address [facility] de Phone Number QUEST [facility] [address] [place] [address] * C3 complement (06/15/2024 10:26 AM CDT) Complement component C3C 121 83 - 193 mg/dL [facility] Blood 06/15/2024 10:2 6 AM CDT 06/15/2024 10:27 AM CDT Idalia Bowles SD LAB BLOOD ORDERABLES Fin al Result Performing Organization Address [facility] de Phone Number [facility] [address] [place] [address] * CRP (acute phase) (06/15/2024 10:26 AM CDT) C-RP <3.0 <8.0 mg/L [facility] Blood 06/15/2024 10:2 6 AM CDT 06/15/2024 10:27 AM CDT Idalia Bowles SD LAB BLOOD ORDERABLES Fin al Result Performing Organization Address [facility] de Phone Number QUEST [facility] [address] [place] [address] * (ABNORMAL) Comprehensive metabolic panel (06/15/2024 10:26 AM CDT) Glucose 88 65 - 99 mg/dL [facility] Comment: Fasting reference interval BUN 11 7 - 25 mg/dL [facility] Creatinine 0.68 0.50 - 0.97 mg/dL [facility] eGFR 116 > OR = 60 mL/min/1.7 3m2 [facility] BUN/creat ratio SEE NOTE: 6 - 22 (calc) [facility] Comment: Not Reported: BUN and Creatinine are within reference range. Sodium 139 135 - 146 mmol/L [facility] Potassium, pl 4.1 3.5 - 5.3 mmol/L [facility] Chloride 107 98 - 110 mmol/L [facility] CO2 26 20 - 32 mmol/L [facility] Calcium 9.3 8.6 - 10.2 mg/dL [facility] Protein, sr 7.3 6.1 - 8.1 g/dL [facility] Albumin 4.5 3.6 - 5.1 g/dL [facility] GLOBULIN 2.8 1.9 - 3.7 g/dL (calc) [facility] Alb/glob ratio 1.6 1.0 - 2.5 (calc) [facility] Bilirubin, total 0.6 0.2 - 1.2 mg/dL [facility] Alk phos 37 31 - 125 U/L [facility] AST 53(H) 10 - 30 U/L [facility] ALT (SGPT) 28 6 - 29 U/L [facility] Blood 06/15/2024 10:2 6 AM CDT 06/15/2024 10:27 AM CDT us Idalia KRAUSE LAB BLOOD ORDERABLES Fin al Result [facility] [address] [place] [address] * XR Ankle Left 3 or More Views (06/06/2024 4:06 PM CDT) Anatomical Region Laterality Modality Lower Extremities, Ankle Left Digital Radiography 06/06/2024 4:45 PM CDT Narrative 06/06/2024 4:46 PM CDT EXAM DESCRIPTION: XR ANKLE LEFT 3 OR MORE VIEWS REASON FOR STUDY: Ankle pain, neg xray, left ankle sprain, bilateral ankle swelling/bruising, pain over the 5th metatarsal. Pt complains of anterior foot and ankle pain, also pain lateral foot and ankle after rolling it last night. No prior fx or surgery TECHNIQUE: Frontal, oblique, and lateral views of the left ankle . COMPARISON: None FINDINGS: BONES/JOINTS: No fracture, malalignment, or suspicious osseous lesion is identified. Joint spaces are preserved. SOFT TISSUES: Unremarkable. IMPRESSION: No fracture or malalignment identified. THIS IS AN ELECTRONICALLY VERIFIED FINAL REPORT 06/06/2024 4:46 PM - Electronically signed by Aidan Geiger M.D. AR T: Report ID: [id number] Reading Location: [id number] Procedure Note Aidan Geiger MD - 06/06/2024 EXAM DESCRIPTION: XR ANKLE LEFT 3 OR MORE VIEWS REASON FOR STUDY: Ankle pain, neg xray, left ankle sprain, bilateral ankle swelling/bruising, pain over the 5th metatarsal. Pt complains of anterior foot and ankle pain, also pain lateral foot andankle after rolling it last night. No prior fx or surgery TECHNIQUE: Frontal, oblique, and lateral views of the left ankle . COMPARISON: None FINDINGS: BONES/JOINTS: No fracture, malalignment, or suspicious osseous lesion is identified. Joint spaces are preserved. SOFT TISSUES: Unremarkable. IMPRESSION: No fracture or malalignment identified. THIS IS AN ELECTRONICALLY VERIFIED FINAL REPORT 06/06/2024 4:46 PM - Electronically signed by Aidan Geiger M.D. AR T: Report ID: [id number] Reading Location: [id number] Francesca Hawley NP IMG XR PROCEDURES Final Re sult * XR Foot Left 3 or More Views (06/06/2024 4:06 PM CDT) Anatomical Region Laterality Modality Lower Extremities, Foot Left Digital Radiography 06/06/2024 4:44 PM CDT Narrative 06/06/2024 4:45 PM CDT EXAM DESCRIPTION: XR FOOT LEFT 3 OR MORE VIEWS REASON FOR STUDY: Pain in Foot, Left, left ankle sprain, bilateral ankle swelling/bruising, pain over the 5th metatarsal. Pt complains of anterior foot and ankle pain, also pain lateral foot and ankle after rolling it last night. No prior fx or surgery TECHNIQUE: Frontal, oblique, and lateral views of the left foot . COMPARISON: None FINDINGS: BONES/JOINTS: No fracture, malalignment, or suspicious osseous lesion is identified. Metatarsus primus varus. Joint spaces are well-preserved. SOFT TISSUES: Unremarkable. IMPRESSION: No acute abnormality identified. THIS IS AN ELECTRONICALLY VERIFIED FINAL REPORT 06/06/2024 4:45 PM - Electronically signed by Aidan Geiger M.D. AR T: Report ID: [id number] Reading Location: [id number] Procedure Note Aidan Geiger MD - 06/06/2024 EXAM DESCRIPTION: XR FOOT LEFT 3 OR MORE VIEWS REASON FOR STUDY: Pain in Foot, Left, left ankle sprain, bilateral ankle swelling/bruising, pain over the 5th metatarsal. Pt complains of anterior foot and ankle pain, also pain lateral foot andankle after rolling it last night. No prior fx or surgery TECHNIQUE: Frontal, oblique, and lateral views of the left foot . COMPARISON: None FINDINGS: BONES/JOINTS: No fracture, malalignment, or suspicious osseous lesion is identified. Metatarsus primus varus. Joint spaces are well-preserved. SOFT TISSUES: Unremarkable. IMPRESSION: No acute abnormality identified. THIS IS AN ELECTRONICALLY VERIFIED FINAL REPORT 06/06/2024 4:45 PM - Electronically signed by Aidan Geiger M.D. AR T: Report ID: [id number] Reading Location: [id number] Francesca Hawley DRAGLINE OILER IMG XR PROCEDURES Final Re sult * Hepatitis C antibody (06/25/2022 11:41 AM CDT) Pathologist [facility] Hep C Ab NON-REACTI VE NON-REACT [place] [facility] SIGNAL TO CUT-OFF 0.15 <1.00 [facility] Comment: HCV antibody was non-reactive. There is no laboratory evidence of HCV infection. In most cases, no further action is required. However, if recent HCV exposure is suspected, a test for HCV RNA (test code 43901) is suggested. For additional information please refer to http://education.[employer]/faq/TRF04d5 (This link is being provided for informational/ educational purposes only.) Blood 06/25/2022 11:4 1 AM CDT 06/25/2022 11:43 AM CDT Narrative [facility] - 06/26/2022 2:09 PM CDT ORDER CODE [id number] DELETED; ORDER CODE [id number] DELETED FASTING:YES FASTING: YES Michaela Chandra MD LAB MICROBIOLOGY - [facility] ORDERABLES Final Result [facility] [address] [place] [address] * Pap and High Risk HPV, reflex to Genotyping (12/18/2021 12:25 PM CDT) Pathologist [facility] CLINICAL INFORMATION: Routine exam [facility] LMP 11/15/2021 [employer] [facility] Previous Pap NONE GIVEN [facility] [employer] [facility] Prev. Bx NONE GIVEN [facility] SOURCE: Cervix, Endocervix [employer] [facility] Pap, specimen adequacy Satisfactory for evaluation. Endocervical/feliciano sformation zone component present. [facility] [employer] [facility] HPV interp Negative for intraepithelial lesion or malignancy. [employer] [facility] Ms Sql Dba LM, CT(ASCP) CT screening location: [place] [address] [address] GLORIA [facility] Comment [facility] Diagnostic [facility] Comment: EXPLANATORY NOTE: The Pap is a screening test for cervical cancer. It is not a diagnostic test and is subject to false negative and false positive results. It is most reliable when a satisfactory sample, regularly obtained, is submitted with relevant clinical findings and history, and when the Pap result is evaluated along with historic and current clinical information. Human papillomavirus DNA, High Risk E6/E7 Not Detected NOT DETECTED [facility] Comment: Not Detected High Risk HPV types (16,18,31,33,35,39,45,51,52, 56,58,59,66,68) were not detected. Other HPV types which cause anogenital lesions may be present. The significance of the other types of HPV in malignant processes has not been established. Methodology: Real Time PCR Thin prep 12/18/2021 12:2 5 PM CDT 12/18/2021 11:48 PM CDT Shira Alberts DRAGLINE OILER LAB CYTOLOGY ORDERABLES Final Result [facility] [address] [place] [address] [facility] Diagnostics/[facility] [address] [place] [address] from Last 3 Months or Most Recently Relevant to Health Maintenance Insurance PENDING SALE TO [facility] [employer] [place] [employer] [place] [employer] [facility] Advance Directives For more information, please contact: [phone] * Full Code (Latest Code Status on File) Date Activated Date Inactivated Comments 01/12/2023 1:59 PM 01/15/2023 10:01 PM * Full Code Date Activated Date Inactivated Comments 01/12/2023 7:49 AM 01/12/2023 1:59 PM Full CPR i n case of cardiopulmonary arrest * Full Code Date Activated Date Inactivated Comments 07/11/2019 9:18 AM 07/13/2019 6:55 PM * Full Code Date Activated Date Inactivated Comments 07/10/2019 8:30 PM 07/11/2019 9:18 AM Full CPR in case of cardiopulmonary arrest Care Teams Jewelry Drilling Machine Operator Relationship Specialty Start Date End Date Angelo Valdes MD [address] [facility] [address] [place] [address] PCP - General Family Medicine 03/25/22 Guy Staples MD [address] [facility] [address] [place], [place] [id number] Consulting Physician Obstetrics and Gynecology 03/25/22 Cailin Frank MD [address] [facility] AND , [address] [place], [place] [id number] Consulting Physician Maternal and Medicine 11/16/22 Jay Santamaria MD [address] [place] [address] Consulting Physician Rheumatology 03/04/23
--- OUTSIDE RECORDS SUMMARY | 2024-08-20 10:57 | XMS_ITS | Encounter Summary ---
Author Organization [facility] Address [address] [place] [address] Phone Care Team Providers Care Natural Gas Technician Name Role Phone Juan Baker MD Primary Care Provider [phone] Tarun Thompson MD Primary Care Provider [phone] Juan Baker MD Primary Care Provider [phone] Dwayne RIVERA MD, John J. Unavailable [phone] Juan Baker MD Primary Care Provider [phone] Angelo Valdes MD Primary Care Provider Guy Staples MD Unavailable Cailin Frank MD Unavailable [phone] Jay Santamaria MD Unavailable [phone] Encounter Details Date Type Department Care Team (Latest Contact Info) Description 08/19/2016 Orders Only [facility] CONVERSION Scanning, Provider Social History Tobacco Use Types Packs/Day Years Used Date Smoking Tobacco: Never Assessed Alcohol Use Standard Drinks/Week Comments No 0 (1 standard drink = 0.6 oz pur e alcohol) Comments Unknown Sex and Gender Information Value Date Recorded Sex Assigned at Not on file Legal Sex Female 2:00 AM CARE PROFESSIONAL Gender Identity Not on file Sexual Orientation Not on file documented as of this encounter Plan of Treatment Not on file documented as of this encounter Procedures Procedure Name Priority Date/Time Associated Diagnosis Comments OBSTETRIC/GYNECOLOGY ULTRASONOGRAPHY REPORT 08/19/2016 3:14 PM CDT documented in this encounter Results * OBSTETRIC/GYNECOLOGY ULTRASONOGRAPHY REPORT (08/19/2016 3:14 PM CDT) Anatomical Region Laterality Modality Ultrasound us Provider Scanning IMG OB US PROCEDURES Final Res ult documented in this encounter Visit Diagnoses Not on filedocumented in this encounter Additional Health Concerns Infection Onset Date Last Indicated Resolved Time COVID: Suspected 08/12/2022 08/12/2022 08/12/2022 4:06 PM CDT COVID: Suspected 01/04/2023 01/04/2023 01/04/2023 4:45 PM CARE PROFESSIONAL COVID: Suspected 01/08/2023 01/08/2023 01/08/2023 2:13 PM CARE PROFESSIONAL COVID: Suspected 03/23/2024 03/23/2024 03/23/2024 10:02 AM CARE PROFESSIONAL Influenza, adult 03/23/2024 03/23/2024 03/30/2024 3:05 AM CARE PROFESSIONAL documented as of this encounter Care Teams Natural Gas Technician Relationship Specialty Start Date End Date Juan Baker MD [address] [place] [address] PCP - General 05/15/16 12/30/16 Tarun Thompson MD [address] [facility] [phone] [place] [address] PCP - General 12/31/16 01/05/17 Juan Baker MD [address] [place] [address] PCP - General 01/06/17 04/08/17 Juan Baker MD [address] [place] [address] PCP - General 04/09/17 03/24/22 Angelo Valdes MD [address] [facility] [address] [place] [address] PCP - General Family Medicine 03/25/22 Ender Rice III, MD [address] [place] [address] Rheumatology 02/23/17 03/03/23 Guy Staples MD [address] [place] [address] Consulting Physician Obstetrics and Gynecology 03/25/22 Cailin Frank MD [address] DIV OBGYN [facility] AND , [address] [place] [address] Consulting Physician Maternal and Medicine 11/16/22 Jay Santamaria MD [address] [place] [address] Consulting Physician Rheumatology 03/04/23 documented as of this encounter
--- OUTSIDE RECORDS SUMMARY | 2024-08-20 10:57 | XMS_ITS | Encounter Summary ---
Author Organization [facility] Address [address] [place] [address] Phone Care Team Providers Care Piece Dye Worker Name Role Phone Juan Baker MD Primary Care Provider [phone] Tarun Thompson MD Primary Care Provider [phone] Juan Baker MD Primary Care Provider [phone] Dwayne RIVERA MD, John J. Unavailable [phone] Juan Baker MD Primary Care Provider [phone] Angelo Valdes MD Primary Care Provider Guy Staples MD Unavailable Cailin Frank MD Unavailable Jay Santamaria MD Unavailable [phone] Encounter Details Date Type Department Care Team (Latest Contact Info) Description 10/27/2016 Orders Only [facility] CONVERSION Scanning, Provider Social History Tobacco Use Types Packs/Day Years Used Date Smoking Tobacco: Never Alcohol Use Standard Drinks/Week Comments No 0 (1 standard drink = 0.6 oz pur e alcohol) Comments Unknown Sex and Gender Information Value Date Recorded Sex Assigned at Not on file Legal Sex Female 2:00 AM 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 BUSINESS 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 Gender Identity Not on file Sexual Orientation Not on file documented as of this encounter Plan of Treatment Not on file documented as of this encounter Procedures Procedure Name Priority Date/Time Associated Diagnosis Comments OBSTETRIC/GYNECOLOGY ULTRASONOGRAPHY REPORT 11/23/2016 1:32 PM CDT OBSTETRIC/GYNECOLOGY ULTRASONOGRAPHY REPORT 10/27/2016 2:34 PM CDT documented in this encounter Results * OBSTETRIC/GYNECOLOGY ULTRASONOGRAPHY REPORT (11/23/2016 1:32 PM CDT) Anatomical Region Laterality Modality Ultrasound us Provider Scanning IMG OB US PROCEDURES Final Res ult * OBSTETRIC/GYNECOLOGY ULTRASONOGRAPHY REPORT (10/27/2016 2:34 PM CDT) Anatomical Region Laterality Modality Ultrasound us Provider Scanning IMG OB US PROCEDURES Final Res ult documented in this encounter Visit Diagnoses Not on filedocumented in this encounter Additional Health Concerns Infection Onset Date Last Indicated Resolved Time COVID: Suspected 08/12/2022 08/12/2022 08/12/2022 4:06 PM CDT COVID: Suspected 01/04/2023 01/04/2023 01/04/2023 4:45 PM AGILE BUSINESS ANALYST COVID: Suspected 01/08/2023 01/08/2023 01/08/2023 2:13 PM AGILE BUSINESS ANALYST COVID: Suspected 03/23/2024 03/23/2024 03/23/2024 10:02 AM AGILE BUSINESS ANALYST Influenza, adult 03/23/2024 03/23/2024 03/30/2024 3:05 AM AGILE BUSINESS ANALYST documented as of this encounter Care Teams Piece Dye Worker Relationship Specialty Start Date End Date Juan Baker MD [address] [place] [address] PCP - General 05/15/16 12/30/16 Tarun Thompson MD [phone] [place] [address] PCP - General 12/31/16 01/05/17 Juan Baker MD [address] [place] [address] PCP - General 01/06/17 04/08/17 Juan Baker MD [address] [place] [address] PCP - General 04/09/17 03/24/22 Angelo Valdes MD [address] [facility] [address] [place] [address] PCP - General Family Medicine 03/25/22 Ender Rice III, MD [address] [place] [address] Rheumatology 02/23/17 03/03/23 Guy Staples MD [address] [facility] [address] [place] [address] Consulting Physician Obstetrics and Gynecology 03/25/22 Cailin Frank MD [address] [facility] AND , [address] [place] [address] Consulting Physician Maternal and Medicine 11/16/22 Jay Santamaria MD [address] [place] [address] Consulting Physician Rheumatology 03/04/23 documented as of this encounter
--- OUTSIDE RECORDS SUMMARY | 2024-08-20 10:57 | XMS_ITS | Referral Summary ---
Author Organization [facility] Address [address] [place] [address] Care Team Providers Care Adjunct Business Instructor Name Role Phone Angelo Valdes MD Primary Care Provider [phone] Guy Staples MD Unavailable Cailin Frank MD Unavailable [phone] Jay Santamaria MD Unavailable [phone] Encounters Date Type Department Care Team Description 06/28/2024 Results Follow-Up [facility] Obstetrics and Gynecology [address] [facility] 1st Floor [address] [place] [address] Poonam Alexander Rai, NP US Pelvis Complete 06/28/2024 2:52 PM CDT - 06/28/2024 11:59 PM CDT Hospital Encounter [facility] - Ultrasound [address] [facility], 7th Floor, [address] [place] [facility] [place] [address] Irregular menses Discharge Disposition: Discharge to home or self care 06/19/2024 9:40 AM CDT Office Visit [facility] Obstetrics and Gynecology [address] [facility] 7th Floor [address] [place] [id number] Poonam Alexander Rai, NP Irregular menses (Primary Dx) 06/16/2024 Results Follow-Up [facility] [address] [place] [id number] Idalia Bowles PA C4 complement, CBC with auto differential, Comprehensive metabolic panel, Additional followed-up results: 6 06/15/2024 9:45 AM CDT Office Visit [facility] [address] [place] [address] Idalia Bowles PA Systemic lupus erythematosus, unspecified SLE type, unspecified organ involvement status (HCC) (Primary Dx); High risk medications (not anticoagulants) long-term use 06/13/2024 Telephone [facility] Obstetrics and Gynecology [facility] 7th Floor [address] [place] [address] Susana Diaz RN Menstrual Problem 06/06/2024 Results Follow-Up [facility] Con[facility]ient Care at [address] [address] Francesca Hawley, VLAD XR Foot Left 3 or More Views 06/06/2024 4:10 PM CDT Ancillary Procedure [facility] Imaging at [address] [address] Pain in left foot 06/06/2024 4:05 PM CDT Ancillary Procedure [facility] Imaging at [address] [address] Moderate left ankle sprain, initial encounter 06/06/2024 3:45 PM CDT Office Visit [facility] at [address] [address] Francesca Hawley, VLAD Pain in left foot (Primary Dx); Moderate left ankle sprain, initial encounter from Last 3 Months Allergies Active Allergy Reactions Criticality Noted Date [...] after use. Do not swallow. 60 each 08/06/19 24 Active nebulizer and compressor device [...] BY MOUTH TWICE DAILY 180 tablet 1 05/08/20 25 Active Active Problems Problem Noted Date Diagnosed Date Pain of right hip 03/17/2024 Assessment & Plan (03/17/2024 1:21 PM MINE EQUIPMENT DESIGN ENGINEER): Intermittent R hip pain, located near gluteal [...] new booster Flu shot utd utd tdap. [id number] in 2007. May have a dose of PCV15 or PCV20 May also get shingles vaccine since immune compromised Assessment & Plan (06/15/2024 9:52 AM CDT): Will monitor labs Neg TB 2016 Neg hepatitis 2016 utd eye exam May get COVID shot 2-3 months after having acute COVID infection Flu shot yearly - utd 2023 utd tdap. [id number] in 2007. May have a dose of PCV15 or PCV20 May also get shingles vaccine since immune compromised Assessment & Plan (03/17/2024 1:19 PM MINE EQUIPMENT DESIGN ENGINEER): Will monitor labs Neg TB 2016 Neg hepatitis 2016 utd eye exam May get COVID shot 2-3 months after having acute COVID infection Flu shot yearly - utd 2023 utd tdap. [id number] in 2007. May have a dose of PCV15 or PCV20 May also get shingles vaccine since immune compromised Assessment & Plan (12/17/2023 10:53 AM CDT): Will monitor labs Neg TB 2016 Neg hepatitis 2016 utd eye exam May get COVID shot 2-3 months after having acute COVID infection Flu shot yearly - will do today utd tdap. [id number] in 2007. May have a dose of PCV15 or PCV20 May also get shingles vaccine since immune compromised Assessment & Plan (09/10/2023 11:42 AM CDT): Will monitor labs Neg TB 2016 Neg hepatitis 2016 utd eye exam utd COVID vaccine. New boosters as applicable per guidelines Flu shot yearly utd tdap. [id number] in 2007. May have a dose of PCV15 or PCV20 May also get shingles vaccine since immune compromised Assessment & Plan (06/03/2023 11:57 AM CDT): Will monitor labs Neg TB 2016 Neg hepatitis 2016 utd eye exam utd COVID vaccine. New boosters as applicable per guidelines Flu shot yearly utd tdap. Ymfulswvd08 in 2007. May have a dose of PCV15 or PCV20 May also get shingles vaccine since immune compromised Assessment & Plan (11/12/2022 11:33 AM CDT): Will monitor labs Neg TB 2016 Neg hepatitis 2016 utd eye exam utd COVID vaccine. May get new vaccine soon Flu shot due soon utd tdap. [id number] in 2007. May have a dose of PCV15 or PCV20 May also get shingles vaccine since immune compromised Assessment & Plan (07/14/2022 1:56 PM CDT): Will monitor labs Neg TB 2016 Neg hepatitis 2016 utd eye exam utd COVID vaccine. Had new booster Flu shot utd utd tdap. [id number] in 2007. May have a dose of PCV15 or PCV20 May also get shingles vaccine since immune compromised Herpes zoster without complication 04/18/2019 Assessment & Plan (04/18/2019 4:10 PM MINE EQUIPMENT DESIGN ENGINEER): Rash developed over the last 24 hrs with prodrome of pain for 3-4 days. Looks consistent with shingles. Will start valtrex 1gm TID x 7 days. Discussed typical course of shingles. Once lesions crust over she should no longer be contagious. 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 May use tylenol for pain. If pain persists she could ask OB if other meds can be used (gabapentin) during . Systemic lupus erythematosus 05/29/2016 Overview (03/04/2023): +GISSELLE 1:160, +LITHOGRAPHIC PRINTING MACHINIST, +chromatin. Low c4 (2014) Neg LAC, anticardiolipin, [...] AM CDT): cdai = 1 +GISSELLE 1:160, +LITHOGRAPHIC PRINTING MACHINIST, +chromatin. Low c4 (2014) Neg LAC, anticardiolipin, [...] Santamaria. Assessment & Plan (03/17/2024 1:19 PM MINE EQUIPMENT DESIGN ENGINEER): cdai = 11 +GISSELLE 1:160, +LITHOGRAPHIC PRINTING MACHINIST, +chromatin. Low c4 (2014) Neg LAC, anticardiolipin, [...] AM CDT): cdai = 18 +GISSELLE 1:160, +LITHOGRAPHIC PRINTING MACHINIST, +chromatin. Low c4 (2014) Neg LAC, anticardiolipin, [...] PM CDT): cdai = 2 +GISSELLE 1:160, +LITHOGRAPHIC PRINTING MACHINIST, +chromatin. Low c4 (2014) Neg LAC, anticardiolipin, [...] AM CDT): cdai = 5 +GISSELLE 1:160, +LITHOGRAPHIC PRINTING MACHINIST, +chromatin. Low c4 (2014) Neg LAC, anticardiolipin, b2gp1, RPR Neg SSA/SSB Neg RF, CCP On hcq 400mg/d and aza 100mg qpm. S/p at 39 weeks on 01/12/23. She continues to do well post- with no lupus flares. Continue current treatment plan. Labs today. F/u 3 months or sooner if needed Assessment & Plan (03/04/2023 12:33 PM MINE EQUIPMENT DESIGN ENGINEER): cdai = 10 +GISSELLE 1:160, +LITHOGRAPHIC PRINTING MACHINIST, +chromatin. Low c4 (2014) Neg LAC, anticardiolipin, [...] PM CDT): cdai = 0 +GISSELLE 1:160, +LITHOGRAPHIC PRINTING MACHINIST, +chromatin. Low c4 (2014) Neg LAC, anticardiolipin, [...] persistent arthralgias/fatigue. Currently 30 weeks . Saw MFM as she was found to have a twin with demise of one fetus by the time of her initial ultrasound. Remaining fetus appears healthy. Had neg SSA/SSB. On 81mg aspirin daily. Will monitor labs [id number]. Doing monthly ultrasounds per [facility]. Continue current treatment plan. Labs today. F/u 3 months or sooner if needed Assessment & Plan (07/14/2022 1:57 PM CDT): cdai = 0 +GISSELLE 1:160, +LITHOGRAPHIC PRINTING MACHINIST, +chromatin. Low c4 (2014) Neg LAC, anticardiolipin, [...] , currently 13 weeks 2 days. Saw MFM as she was found to have a twin with demise of one fetus by the time of her initial ultrasound. Remaining fetus appears healthy. Had neg SSA/SSB. On 81mg aspirin daily. Will monitor labs [id number]. Continue current treatment plan. Seen with Dr. [...] month Assessment & Plan (04/16/2022 4:45 PM MINE EQUIPMENT DESIGN ENGINEER): cdai = 0 Recent episode of pleuritic [...] month Assessment & Plan (04/03/2022 1:26 PM MINE EQUIPMENT DESIGN ENGINEER): cdai = 3 Low activity on exam. On hcq 400mg and azathioprine 50mg QAM and 100mg PM. More compliant with full dosing. Continue current regimen. Thinking about trying to conceive again in spring 2022. Labs today. F/u 3 months or sooner if needed. Assessment & Plan (01/02/2022 11:37 AM MINE EQUIPMENT DESIGN ENGINEER): cdai = 7 Low activity on exam. [...] utd Assessment & Plan (03/28/2021 10:43 AM MINE EQUIPMENT DESIGN ENGINEER): cdai = 3 Low activity on exam. On hcq 400mg/d and aza 50mg in pm. Will continue same regimen. If worse in the future we can increase dose of azathioprine. May use tylenol or nsaids prn. Labs today. F/u 3 months or sooner if needed. Flu shot utd Assessment & Plan (12/27/2020 10:22 AM MINE EQUIPMENT DESIGN ENGINEER): cdai = 6 Low activity on exam. [...] needed. Assessment & Plan (03/29/2020 5:39 PM MINE EQUIPMENT DESIGN ENGINEER): C/o increased fatigue and joint pains for [...] resume normal activities including exercise. Is . Home Energy Rater started progestin only ocp for now. She [...] order for labs to be done at [facility]. Assessment & Plan (04/18/2019 4:07 PM MINE EQUIPMENT DESIGN ENGINEER): Stable. Continue hcq. Hold aza while on valtrex for shingles. Keep next regularly scheduled appt. Assessment & Plan (03/17/2019 1:05 PM MINE EQUIPMENT DESIGN ENGINEER): Doing well. On hcq 400mg/d and aza [...] worse. Assessment & Plan (03/01/2018 11:40 AM MINE EQUIPMENT DESIGN ENGINEER): Doing well. cdai is 4. On hcq [...] noted. Assessment & Plan (02/23/2017 4:28 PM MINE EQUIPMENT DESIGN ENGINEER): Low disease activity with hcq bid and aza 200mg in pm. Currently 8 weeks post . Will ask her cancer program consultant if it is ok to take aza [...] [x] Blue Team Referring Provider: Michaela Chandra [phone] [] happn or Medicare Insurance [x] Dating Criteria: LMP [...] 11/27/2022 3rd [facility] and delivery with [facility]. GBS sent 12/22/2022 - negative Assessment & Plan (07/14/2022 1:55 PM CDT): Was evaluated by MFM but may continue with regular OB for the remainder of the . Will also check her lupus labs [id number] Supervision of other normal , antepartum 06/12/2022 [...] shows pleural effusion, pericardial effusion in 04/09 Symptoms resolved with course of nsaids Assessment & Plan (04/16/2022 4:46 PM MINE EQUIPMENT DESIGN ENGINEER): See discussion. Evaluated in ER and CTA [...] negative. GBS negative. Membrane Status: intact 4. CT asthma: Continue albuterol PRN 5. H/o CS: [...] steps, initial encounter 02/18/2019 06/20/2019 Overview (02/18/2019): [facility] visit 02/18/19: --+FHTs. No ctx on toco. SVE closed/long/high --Abd soft, NT. Lower back pain improved w/ APAP. Advised to cont APAP/heat prn --No e/o SROM. Wet prep c/w yeast. Diflucan Rx given. --[facility] prec rev'd. --Keep f/u scheduled 02/24. Vaginal bleeding in 01/04/2019 04/21/2019 Overview (01/04/2019): 01/04/19 [facility] visit: Noticed blood in the toilet with voiding and on the toilet paper. Most recently, in [facility], bleeding on toilet paper was more brown. [...] delivery by 39 weeks per consult -S/P shingles in April 2019 -Hx of ltcs in 2017 with MFM for failed IOL, NRFHR LGA [...] (27-36wks):05/16/19 Nicolas [x] Flu Shot: getting at completions manager's office today [] Rhogam (if Rh neg): [...] new booster Flu shot utd utd tdap. Voelbyyag17 in 2007. She should now get a dose of PCV15 or PCV20 May also get shingles since immune compromised Assessment & Plan (04/16/2022 4:46 PM MINE EQUIPMENT DESIGN ENGINEER): Will monitor labs utd eye exam utd COVID vaccine. Had new booster Flu shot utd utd tdap. Ywtwhrtbh40 in 2007. She should now get a dose of PCV15 or PCV20 May also get shingles since immune compromised Assessment & Plan (04/03/2022 9:11 AM MINE EQUIPMENT DESIGN ENGINEER): Will monitor labs utd eye exam utd COVID vaccine. Had new booster Flu shot utd utd tdap. Scekhvdxp59 in 2007. She should now get a dose of PCV15 or PCV20 May also get shingles since immune compromised Assessment & Plan (03/28/2022 2:07 PM MINE EQUIPMENT DESIGN ENGINEER): A(n) initial well visit to establish care [...] benefits. Assessment & Plan (01/02/2022 11:41 AM MINE EQUIPMENT DESIGN ENGINEER): Will monitor labs utd eye exam utd COVID vaccine. Had new booster Flu shot utd utd tdap. Zyfuqargd58 in 2007. She should now get a dose of PCV15 or PCV20 May also get shingles since immune compromised Assessment & Plan (10/03/2021 10:42 AM CDT): Will monitor labs utd eye exam utd COVID vaccine. had 3rd dose Flu shot utd utd tdap. Mutugpvsh33 in 2007. Script sent in for Sftnowg49 Assessment & Plan (09/04/2021 9:58 AM CDT): Will monitor labs utd eye exam utd COVID vaccine. had 3rd dose Flu shot utd utd tdap. Fnoitnqjz28 in 2007. Script sent in for Ybbsaks85 Assessment & Plan (07/04/2021 10:55 AM CDT): Will monitor labs utd eye exam utd COVID vaccine. had 3rd dose Flu shot utd utd tdap. Tqmfytfwi37 in 2007. Script sent in for Rtzxfxt74 Assessment & Plan (03/28/2021 10:45 AM MINE EQUIPMENT DESIGN ENGINEER): Will monitor labs utd eye exam utd COVID vaccine. had 3rd dose Flu shot utd utd tdap. Mgvkpiiej90 in 2007. Script sent in for Upmxyuf14 Assessment & Plan (12/27/2020 10:43 AM MINE EQUIPMENT DESIGN ENGINEER): Will monitor labs utd COVID vaccine. Eligible for 3rd dose now Flu shot today. utd tdap. Unocfjosu49 in 2007. Script sent in for Dusgqjf41 Assessment & Plan (09/27/2020 10:23 AM CDT): Will monitor labs utd COVID vaccine. Discussed possible booster shot once we have more information from [facility] utd tdap. Ykmdqaaaz11 in 2007 Assessment & Plan (06/28/2020 11:34 AM CDT): Will monitor labs Assessment & Plan (03/29/2020 8:58 AM MINE EQUIPMENT DESIGN ENGINEER): Will monitor labs Assessment & Plan (12/14/2019 4:18 PM CDT): Will monitor labs Assessment & Plan (09/01/2019 3:07 PM CDT): Will monitor labs utd flu shot Assessment & Plan (06/15/2019 10:48 AM CDT): Will monitor labs utd flu shot Assessment & Plan (03/17/2019 8:59 AM MINE EQUIPMENT DESIGN ENGINEER): Will monitor labs utd flu shot Assessment & Plan (11/29/2018 10:48 AM CDT): Will monitor labs Flu shot today Assessment & Plan (08/30/2018 9:02 AM CDT): Will monitor labs Assessment & Plan (06/07/2018 12:46 PM CDT): Will monitor labs Assessment & Plan (03/01/2018 9:18 AM MINE EQUIPMENT DESIGN ENGINEER): Labs today. F/u 3 mos, sooner if needed. Assessment & Plan (02/23/2017 2:12 PM MINE EQUIPMENT DESIGN ENGINEER): Labs today. F/u 3 mos, sooner if [...] 07/02/2022 Overview (05/21/2016): Irregularity of cornea contour Immunizations Immunization Administration Dates Next Due Influenza, [...] 05/11/2020,04/18/2020 Pneumococcal Polysaccharide PPV23 03/18/2007 Tdap 11/26/2022,05/16/2019,10/27/2016 Social History Tobacco Use Types Packs/Day Years [...] week 01/13/2023 How often do you attend [facility] or jewish services? More than 4 times per year 01/13/2023 Do you belong to any clubs o r organizations such as roman catholic groups, unions, fraternal or athletic groups, or [...] place to sleep or slept in a long-term (including now)? 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 Not on file Not on file Not on file Last Filed Vital Signs Vital Sign Reading [...] 06/19/2024 9:40 AM CDT Plan of Treatment Not on file Procedures Procedure Name Priority Date/Time Associated Diagnosis [...] Hepatic function panel (07/06/2024 9:50 AM CDT) Protein, Total 7.2 6.4 - 8.4 g/dL [facility] Albumin 4.4 3.6 - 5.1 g/dL [facility] Globulin 2.8 2.2 - 4.0 g/dL (calc) [email or web address] Alb/glob ratio 1.6 0.9 - 2.3 (calc) [email or web address] Bilirubin, total 0.5 0.2 - 1.2 mg/dL [facility] Bilirubin, direct 0.1 < OR = 0.2 mg/dL [email or web address] Bilirubin, indirect 0.4 0.2 - 1.2 mg/dL (calc) [facility] Alk phos 33 31 - 125 U/L [email or web address] AST 22 10 - 30 U/L [email or web address] ALT (SGPT) 17 6 - 29 U/L [email or web address] Blood 07/06/2024 9:50 AM CDT 07/06/2024 9:51 AM CDT us Idalia KRAUSE LAB BLOOD ORDERABLES Fin al Result [facility] [address] [place] [address] * US Pelvis Complete (06/28/2024 2:52 PM [...] 3- No adnexal masses are identified. Poonam Cavanaugh Wawrzyniak WOOD DRILLING MACHINE OPERATOR IMG US PROCEDURES Final Result * Anti-double stranded DNA abs (06/15/2024 10:26 AM CDT) Pathologist [facility] DNA (DS) ab 1 IU/mL [facility] Comment: IU/mL Interpretation < or = 4 Negative 5-9 Indeterminate > or = 10 Positive Blood 06/15/2024 10:2 6 AM CDT 06/15/2024 10:27 AM CDT Idalia Ramos Jelena NM LAB BLOOD ORDERABLES Fin al Result Performing Organization Address [facility] Co de Phone Number [facility] [address] [place] [address] * C4 complement (06/15/2024 10:26 AM CDT) [facility] Complement component C4C 15 15 - 57 mg/dL [facility] Blood 06/15/2024 10:2 6 AM CDT 06/15/2024 10:27 AM CDT Result [facility] Idalia Cruzaury NM LAB BLOOD ORDERABLES Fin al Result Performing Organization Address [facility] de Phone Number [facility]ST [facility] [address] [place] [address] * CBC with auto differential (06/15/2024 10:26 AM CDT) Pathologist [facility] WBC 6.1 3.8 - 10.8 Thousand/u [...] LAB BLOOD ORDERABLES Fin al Result [facility] [address] [place] [address] * (ABNORMAL) Protein / creatinine ratio, urine, [...] CDT 06/15/2024 10:27 AM CDT Idalia Bowles NM LAB URINE ORDERABLES Fin al Result Performing Organization Address [facility] Co de Phone Number QUEST [facility] [address] [place] [address] * Erythrocyte sedimentation rate (06/15/2024 10:26 AM CDT) Erythrocyte sedimentation rate 9 < OR = 20 mm/h [facility] Blood 06/15/2024 10:2 6 AM CDT 06/15/2024 10:27 AM CDT Idalia Bowles NM LAB BLOOD ORDERABLES Fin al Result Performing Organization Address [facility] de Phone Number QUEST [facility] [address] [facility] [place] [address] * C3 complement (06/15/2024 10:26 AM CDT) Complement component C3C 121 83 - 193 mg/dL [facility] Blood 06/15/2024 10:2 6 AM CDT 06/15/2024 10:27 AM CDT [facility] BLOOD ORDERABLES Fin al Result Performing Organization Address [facility] de Phone Number QUEST [facility] [address] [facility] [place] [address] * CRP (acute phase) (06/15/2024 10:26 AM CDT) C-RP <3.0 <8.0 mg/L [facility] Blood 06/15/2024 10:2 6 AM CDT 06/15/2024 10:27 AM CDT us Idalia KRAUSE LAB BLOOD ORDERABLES Fin al Result [facility] [address] [address] * (ABNORMAL) Comprehensive metabolic panel (06/15/2024 10:26 [...] KRAUSE LAB BLOOD ORDERABLES Fin al Result JANENE [facility] [address] [place] [address] * XR Ankle Left 3 or More [...] 4:46 PM - Electronically signed by Aidan MORALES T: Report ID: [id number] Reading Location: [id number] Procedure Note Aidan Geiger MD - 06/06/2024 [...] 4:46 PM - Electronically signed by Aidan MORALES T: Report ID: [id number] Reading Location: [id number] Francesca Hawley WOOD DRILLING MACHINE OPERATOR IMG XR PROCEDURES Final Re sult * [...] 4:45 PM - Electronically signed by Aidan MORALES T: Report ID: [id number] Reading Location: [id number] Procedure Note Aidan Geiger MD - 06/06/2024 [...] 4:45 PM - Electronically signed by Aidan MORALES T: Report ID: [id number] Reading Location: [place] [address] Francesca Hawley WOOD DRILLING MACHINE OPERATOR IMG XR PROCEDURES Final Re sult * Hepatitis C antibody (06/25/2022 11:41 AM CDT) Hep C Ab NON-REACTI VE NON-REACT GARFIELD [facility] SIGNAL TO CUT-OFF 0.15 <1.00 [facility] Comment: HCV antibody was non-reactive. There is no laboratory evidence of HCV infection. In most cases, no further action is required. However, if recent HCV exposure is suspected, a test for HCV RNA (test code 73849) is suggested. For additional information please refer to http://education.Drybar/faq/OQW82m1 (This link is being provided for informational/ educational purposes only.) Blood 06/25/2022 11:4 1 AM CDT 06/25/2022 11:43 AM CDT Narrative [facility] - 06/26/2022 2:09 PM CDT ORDER CODE 21000 DELETED; ORDER CODE [id number] DELETED FASTING:YES FASTING: YES Michaela Chandra MD LAB MICROBIOLOGY - GENE RAL ORDERABLES Final Result [facility] [address] [place] [address] * Pap and High Risk HPV, reflex to Genotyping (12/18/2021 12:25 PM CDT) Pathologist [facility] CLINICAL INFORMATION: Routine exam [facility] LMP 11/15/2021 [facility] Previous Pap NONE GIVEN [facility] Prev. Bx NONE GIVEN [facility] SOURCE: Cervix, Endocervix [facility] Pap, specimen adequacy Satisfactory for evaluation. Endocervical/feliciano sformation zone component present. [facility] HPV interp Negative for intraepithelial lesion or malignancy. [facility] Dust Collector Operator LM, CT(ASCP) CT screening location: [place] [address] [place] [address] [facility] Comment [facility] Comment: EXPLANATORY NOTE: The Pap is a [...] High Risk E6/E7 Not Detected NOT DETECTED [facility] Comment: Not Detected High Risk HPV types (16,18,31,33,35,39,45,51,52, 56,58,59,66,68) were not detected. Other HPV types which cause anogenital lesions may be present. The significance of the other types of HPV in malignant processes has not been established. Methodology: Real Time PCR Thin prep 12/18/2021 12:2 5 PM CDT 12/18/2021 11:48 PM CDT Shira Alberts NP LAB CYTOLOGY ORDERABLES Final Result [place] [address] [address] [facility] [address] [place] [address] from Last 3 Months or Most Recently Relevant to Health Maintenance Insurance [facility] [employer] [place] [employer] [facility] Advance Directives For more information, please contact: [phone] * Full Code (Latest Code Status on [...] in case of cardiopulmonary arrest Care Teams Adjunct Business Instructor Relationship Specialty Start Date End Date Angelo Valdes MD [address] [facility] [address] [place] [address] PCP - General Family Medicine 03/25/22 Guy Staples MD [address] [facility] [address] [place] [address] Consulting Physician Obstetrics and Gynecology 03/25/22 Cailin Frank MD [address] [facility] , [address] [address] Consulting Physician Maternal and Medicine 11/16/22 Jay Santamaria MD [address] [place] [address] Consulting Physician Rheumatology 03/04/23
--- OUTSIDE RECORDS SUMMARY | 2024-08-20 10:57 | XMS_ITS | Clinical Summary ---
Author Organization [facility] [employer] Address [address] [facility] [place] [address] Care Team Providers Care Associate Financial Advisor Name Role Phone Dwayne RIVERA MD, Ender Colon Primary Care Provider [phone] Source Comments [facility],non-owned Affiliates and Associated Physician Practices is amultiple site organization consisting of ambulatory clinics and hospital sitesin [place], [place], [place] and [place]. This disclosure is being madepursuant to the Care Everywhere program and may not contain all information available regarding this patient. Last updated 17.[facility] [employer] Allergies Active Allergy Reactions Criticality Noted Date Comments Minocycline Other High 09/16/2011 Drug induced Lupus states it gave her lupus Reaction: Other, Naproxen Nausea and/or Vomiting Low 04/16/2022 Peppermint Oil Itching Low 01/04/2019 Tramadol Nausea and/or Vomiting,Vomiting Low 10/13/2023 Medications * Be aware that medications may not be up to date on this document. Alwaysverify current medications with the patient. hydroxychloroqu ine (Plaquenil) 200 MG tablet Take 1 (one) tablet by mouth two times daily at 4am and 4pm 05/24/2023 Active fluticasone-sheila anterol (Breo Ellipta) 200-25 MCG/ACT inhaler Inhale 1 (one) puff by mouth once daily 08/06/2023 Active azaTHIOprine (Imuran) 50 MG tablet Take 2 (two) tablets by mouth once daily 06/03/2023 Active albuterol (Proventil;Vent andrew) (2.5 MG/3ML) 0.083% nebulizer solution Inhale 2.5 (two and one-half) mg by mouth 08/06/2023 Active albuterol HFA (Proventil; Ventolin; Proair) 108 (90 Base) MCG/ACT inhaler Inhale 2 (two) puffs by mouth every 6 hours as needed 07/21/2023 Active Active Problems Problem Noted Date Diagnosed Date Mild intermittent asthma, uncomplicated 10/13/19 24 Family History Medical History Relation Name Comments Blindness Neg Hx Glaucoma Neg Hx Macular Degeneration Neg Hx Social History Tobacco Use Types Packs/Day Years Used Date Smoking Tobacco: Never Assessed Tobacco Cessation:Counseling Given: Not Answered Comments Unknown Sex and Gender Information Value Date Recorded Sex Assigned at Not on file Legal Sex Female 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 Gender Identity Not on file Sexual Orientation Not on file Last Filed Vital Signs Vital Sign Reading Time Taken Comments Blood Pressure 140/89 05/19/2016 9:08 AM CDT Pulse 82 05/19/2016 9:08 AM CDT Temperature 36.5 C (97.7 F) 12/17/2015 7:33 AM CDT Respiratory Rate 16 05/19/2016 9:08 AM CDT Oxygen Saturation 100% 12/17/2015 10:00 AM CDT Inhaled Oxygen Concentration - - Weight 98.9 kg (218 lb) 05/19/2016 9:08 AM CDT Height 175.3 cm (5' 9) 05/19/2016 9:08 AM CDT Body Mass Index 32.19 05/19/2016 9:08 AM CDT Plan of Treatment Health Maintenance Due Date Last Done Comments HIV SCREENING 01/31/2004 HEPATITIS C SCREENING 01/26/2007 DTAP/TDAP/TD VACCINES (1 - Tdap) 01/31/2008 HEPATITIS B VACCINE (1 of 3 - 19+ 3-dose series) 01/31/2008 PNEUMOCOCCAL VACCINE (1 of 2 - PCV) 01/31/2008 ZOSTER VACCINE (1 of 2) 01/31/2008 PAP SMEAR 2010 COVID-19 VACCINE (3 - Pfizer risk series) 06/08/2020 05/11/2020, 04/18/2020 DEPRESSION SCREENING 02/16/2024 INFLUENZA VACCINE (Season Ended) 2024 11/26/2022, 12/04/2021, 12/27/2020, Additional history exists HIB VACCINE Aged Out No longer eligi ble based on patient's age to complete this topic HPV VACCINE Aged Out No longer eligi ble based on patient's age to complete this topic MENINGOCOCCAL (Group B) VACCINE SHARED DECISION-MAKING Aged Out No longer eligible based on patient's age to complete this topic MENINGOCOCCAL GROUPS A/C/Y/W VACCINE Aged Out No longer eligible based on patient's age to complete this topic Insurance ANTH Care Teams Associate Financial Advisor Relationship Specialty Start Date End Date Ender Rice III, MD PCP - General Rheumatology 01/19/12
--- OUTSIDE RECORDS SUMMARY | 2024-08-20 10:57 | XMS_ITS | Data Portability ---
Author Organization [facility] [employer] Address [address] [facility] [address] [place] [address] Assessment No assessment recorded. Plan of Treatment Reminders Order Date Submit Date Provider Last Modified By Organization Details Last Modified Time Details Appointments None recorded. Lab vitamin D, 25-hydroxy , total, serum 2018 019 [facility], [address], [address], [address], 9 08:42:41 lipid panel, serum 2018 019 [facility], [address], [address], [address], 9 08:42:41 vitamin B12 + folate, serum or blood 2018 019 [facility], [address], [facility] [address], [address], 9 08:42:40 TSH + free T4, serum 2018 019 [facility], [address], [facility] [address], [place], [address], 9 08:42:40 T3, free, serum or plasma 2018 019 [facility], [address], [facility] [address], [address], 9 08:42:41 vitamin D, 25-hydroxy , total, serum 2016 017 [facility], [address], [address], [place], [address], 7 08:33:34 lipid panel w/ direct LDL, serum 2016 017 [employer] [facility], [address], [address], [place], [address], 7 09:30:30 CK (creatine kinase) mb, quantitati ve, blood 2016 017 [employer] [facility], [address], [address], [place], [address], 7 09:30:32 vitamin B12 + folate, serum or blood 2016 017 [facility], [address], [address], [place], [address], 7 08:33:33 TSH + free T4, serum 2016 017 [facility], [address], [address], [place], [address], 7 08:33:34 T3, free, serum or plasma 2016 017 [facility], [address], [address], [place], [address], 7 08:33:34 Referral ophthalmol ogist referral 2018 019 [email or web address], [address] [facility] , [place], [address], 9 09:12:20 Procedures None recorded. Surgeries None recorded. Imaging electrocar diogram 2018 019 MALIK [place] [employer], [facility], [address], [place], [address], 9 17:34:14 XR, chest, 2 view 2018 019 [email or web address] Not available 9 08:55:11 XR, chest, 2 view 2016 017 [email or web address] Not available 7 08:24:47 Medication Orders Augmentin 875 mg-125 mg tablet 2018 019 [id number], [address], [place], [id number], 2 18:23:04 Zithromax Z-Juancarlos 250 mg tablet [address]/[facility] [id number], [address] [place], [address], 2 18:23:22 Patient TargetsNo targets recorded. 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, [facility] [address], [place], [address], 09/12/2018 15:54:52 09/13/19 19 09/12/2018 elect rocar diogr am AL Interval Not Available [facility] [address], [place], [address], 09/12/2018 15:54:52 09/13/19 19 09/12/2018 elect rocar diogr am QRS Duration Not Available [facility] [address], [place], [address], 09/12/2018 15:54:52 09/13/19 19 09/12/2018 elect rocar diogr am QT Interval Not Available [facility] [address], [place], [address], 09/12/2018 15:54:52 09/13/19 19 09/12/2018 elect rocar diogr am Change from Previous EKG? Not Available [facility] [address], [place], [address], 09/12/2018 15:54:52 09/13/19 19 09/12/2018 elect rocar diogr am Date of Last EKG Not Available [facility] [address], [place], [address], 09/12/2018 15:54:52 09/13/19 elect rocar diogr am No observ ation record ed. [email or web address] Not Available 2018 11:13:12 Result Notes None recorded. Procedures Surgical History Date Name Laterality Status Provider Name and Address Organization Details Recorded Time 8 Date of Last Pap Smear completed Gilda Walton [facility] 09/12/2018 15:27:05 Imaging Results None recorded. Procedure Notes None recorded. Medical Equipment None Reported. Allergies No known drug allergies Medications Name Sig Start Date Stop Date Status Note LastModified by Organization Details LastModified Time Augmentin 875 mg-125 mg tablet Take 1 tablet every 12 hours by oral route. 11/19 completed Not Available Not Available Not Available prednisone 5 mg tablet active Not Available Not Available No t Available Zithromax Z-Juancarlos 250 mg tablet TAKE 2 TABLETS (500 MG) BY ORAL ROUTE ONCE DAILY FOR 1 DAY THEN 1 TABLET (250 MG) BY ORAL ROUTE ONCE DAILY FOR 4 DAYS 11/19 completed Not Available Not Available Not Available azathioprine 50 mg tablet TAKE 1 TABLET BY MOUTH TWICE DAILY active Not Available Not Available No t Available Cheratussin AC 10 mg-100 mg/5 mL oral liquid 11/19 completed Not Available Not Available Not Available hydroxychlor oquine 200 mg tablet 11/19 completed Not Available Not Available Not Available levofloxacin 500 mg tablet 11/19 completed Not Available Not Available Not Available albuterol sulfate HFA 90 mcg/actuatio n aerosol inhaler INHALE 2 PUFFS BY MOUTH EVERY 4 HOURS active Not Available Not Available No t Available neomycin 3.5 mg/g-polymyx in B 10,000 unit/g-dexam eth 0.1 % eye oint APPLY THIN LAYER TO THE EYELID TWICE DAILY active Not Available Not Available No t Available Vitals Date Recorded Body weight Body height Body mass index (BMI) Body temperature Respiratory rate Heart rate Systolic And Diastolic Provider Name and Address Organization Details Last Updated DateTime 7 105817. 69 g 172.72 cm 34.1 kg/m2 97.2 [degF] 16 /min 67 /min 111/74 mm[Hg] [facility] 08:49:50 Date Recorded Heart rate Respiratory rate Body temperature Body height Body mass index (BMI) Body weight Systolic And Diastolic Provider Name and Address Organization Details Last Updated DateTime 9 62 /min 16 /min 97 [degF] 172.72 cm 27.8 kg/m2 55017.4 g 101/70 mm[Hg] Gilda Felix on [facility] 9 15:25:35 Social History Question Answer Notes LastModified by Organizat ion Details LastModified Time Tobacco Smoking Status Never Smoker Gilda Walton [facility] 09/12/2018 15:26:01 What Is Your Level Of Caffeine Consumption? Heavy Information not available 09/12/2018 How Much Tobacco Do You Chew? None Information not available 09/12/2018 How Much Tobacco Do You Smoke? No [email or web address] Information not available 09/12/2018 Sex: Unknown Functional Status Question Answer Note LastModified by [employer] Details LastModified Time What is your level of alcohol consumption? Occasional Information not available 09/12/2018 Mental Status None recorded. Family History Nothing Reported. Medical History No medical history recorded. Gynecological History Statement/Question Response Date of Last Pap Smear 02/15/2017 Date of Last Mammogram Date of Last Colonoscopy Obstetrics History GPAL:G 0 P 0 0 0 0 Past Encounters Encounter ID Performer Location Encounter Start Date Encounter Closed Date Diagnosis/Indication Diagnosis SNOMED-CT Code Diagnosis ICD10 Code Diagnosis Note [id number] Juan Baker MD [place] [facility] [facility] [address] [place] [address] 04/15/2016 08:36:28 04/15/2016 09:33:13 Acute pharyngitis 651503354 J02.9 (viral vs Atypical) -- issue Zpak Pneumonia 277083110 J18. 9 Fatigue 32317681 R53.83 -- Pt reports she just had liver and CBC blood [facility] Systemic l upus erythematosus 13684931 M32.9 -- Pt reports she just had liver and CBC blood count done [facility] Hyperlipid emia screening 579938346 Z13.220 E78.5 [id number] Juan Baker MD [place] [employer] [facility] [address] [place] [address] 09/12/2018 14:43:33 09/12/2018 16:12:24 Adult health examination 896566059 Z00.00 Acute pharyngitis 202270 003 J02.9 (viral vs Atypical) Pneumonia 484814417 J18. 9 (previousl y) -- resolved without any residual Fatigue 78007044 R53.83 -- Pt reports she just had liver and CBC blood count done by [facility] Systemic l upus erythematosus 95426288 M32.9 -- Pt reports she just had liver and CBC blood count done by Florentin becerra-- Pt is on Hydroxychl oroquin (will check EKG & also refer pt to [facility] for eval) Hyperlipid emia screening 969272654 Z13.220 E78.5 Body mass index 25-29 - overweight 358630732 Z68.27 -- pt's BMI is 27.8 (ideal is between 20-25) Health Concerns Section Related Observation LastModified by Organization Detai ls LastModified Time None Recorded Concern Status LastModified by Organization Details LastModified Time None Recorded Advance Directives Directive None Recorded Payers Insurance Date Sequence Insurance Name Policy Number Policy Medina Covered Member ID Medina Member ID Guarantor Name 09/12/2018 1 [facility] (PPO) [id number] Jayro Ayon [id number] Alejandar Ayon 09/12/2018 1 [facility] [employer] (PPO) [id number] Alejandra Ayon [id number] Alejandra Ayon Notes Date Note Type Note Provider Name and Address Organization Details Recorded Time 04/15/2016 text/html Sore ThroatRepor laurie bypatient.Location:r ight side Onset/Timing:gradual Duration:started few day(s) ago Quality:no hoarseness Severity:same Associated Symptoms:no fever; no nausea; no vomiting;cough((dry) ) Pt s/p Levaquin tx for Pneumonia but still has scratchy throat.No F/C/N/GI sx reported Juan Baker MD [address] [facility] [address], [place], [address], [facility] 04/15/2016 09:31:46 09/12/2018 text/html Pt p/w sorethroa t & generalized bodyache since yesterday.Pt also has subjective fever. She has a mild cough (non-productive). No ROJAS but has fatigue. Patient denies any headache/chest discomfort or pain/diaphoresis/santa athing problems/nausea/vomi ting/any angina equivalent symptoms/visual changes Juan Baker MD [address] [facility] [address], [place], [address], [facility] 09/12/2018 16:09:55 OBGyn Episode No OBEpisode recorded.
[2024-08-20 11:53] LABS: Hematocrit 38.6 % (37.0-47.0); Hemoglobin 12.8 g/dL (12.0-15.0); Immature Granulocyte Percent A 0.3 % (0-0.5); Lymphocytes Absolute Auto 1.09 K/mm3 (0.9-3.2); Mean Corpuscular HGB Conc 33.2 g/dl (32-36); Mean Corpuscular Hemoglobin 30.0 pg (26-34); Mean Corpuscular Volume 90.4 fl (80-100); Nucleated Red Blood Cells Absolute Auto 0.000 K/mm3 (0.0-0.012); Nucleated Red Blood Cells Perc 0.0 % (0.0-0.2); Platelet Count Result 187 k/mm3 (150-375); Red Blood Count 4.27 M/mm3 (4.2-5.4); White Blood Count 5.9 K/mm3 (4.5-10.0)
--- OUTSIDE RECORDS SUMMARY | 2024-08-20 12:00 | XMS_ITS | Encounter Summary ---
Author Organization [facility] Address [address] [place] [address] Phone Care Team Providers Care African History Professor Name Role Phone Juan Baker MD Primary Care Provider [phone] Tarun Thompson MD Primary Care Provider [phone] Juan Baker MD Primary Care Provider [phone] Dwayne RIVERA MD, John J. 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 Gender Identity Not on file Sexual Orientation Not on file documented as of this encounter Plan of Treatment Not on file documented as of this encounter Procedures Procedure Name Priority Date/Time Associated Diagnosis Comments OBSTETRIC/GYNECOLOGY ULTRASONOGRAPHY REPORT 12/29/2016 2:46 PM ENTRY LEVEL ACCOUNTANT documented in this encounter Results * OBSTETRIC/GYNECOLOGY ULTRASONOGRAPHY REPORT (12/29/2016 2:46 PM ENTRY LEVEL ACCOUNTANT) Anatomical Region Laterality Modality Ultrasound us Provider Scanning IMG OB US PROCEDURES Final Res ult documented in this encounter Visit Diagnoses Not on filedocumented in this encounter Additional Health Concerns Infection Onset Date Last Indicated Resolved Time COVID: Suspected 08/12/2022 08/12/2022 08/12/2022 4:06 PM CDT COVID: Suspected 01/04/2023 01/04/2023 01/04/2023 4:45 PM ENTRY LEVEL ACCOUNTANT COVID: Suspected 01/08/2023 01/08/2023 01/08/2023 2:13 PM ENTRY LEVEL ACCOUNTANT COVID: Suspected 03/23/2024 03/23/2024 03/23/2024 10:02 AM ENTRY LEVEL ACCOUNTANT Influenza, adult 03/23/2024 03/23/2024 03/30/2024 3:05 AM ENTRY LEVEL ACCOUNTANT documented as of this encounter Care Teams African History Professor Relationship Specialty Start Date End Date Juan Baker MD [address] [place] [address] PCP - General 05/15/16 12/30/16 Tarun Thompson MD [address] [facility] [phone] [place] [address] PCP - General 12/31/16 01/05/17 Juan Baker MD [address] [place] [address] PCP - General 01/06/17 04/08/17 Juan Baker MD [address] [place] [address] PCP - General 04/09/17 03/24/22 Angelo Valdes MD [address] [facility] [address] [place] [address] PCP - General Family Medicine 03/25/22 Ender Rice III, MD [address] [place] [address] Rheumatology 02/23/17 03/03/23 Guy Staples MD [address] [place] [address] Consulting Physician Obstetrics and Gynecology 03/25/22 Cailin Frank MD [address] DIV [facility] , [address] [place] [address] Consulting Physician Maternal and Medicine 11/16/22 Jay Santamaria MD [address] [place] [address] Consulting Physician Rheumatology 03/04/23 documented as of this encounter
--- OUTSIDE RECORDS SUMMARY | 2024-08-20 12:00 | XMS_ITS | Clinical Summary ---
Author Organization [facility] Address [address] [place] [address] Care Team Providers Care Shell Assembler Name Role Phone Angelo Valdes MD Primary Care Provider Guy Staples MD Unavailable Cailin Frank MD Unavailable [phone] Jay Santamaria MD Unavailable [phone] Allergies Active Allergy Reactions Criticality Noted [...] 03/17/2024 Assessment & Plan (03/17/2024 1:21 PM PULLEY MAINTAINER): Intermittent R hip pain, located near gluteal [...] new booster Flu shot utd utd tdap. [id number] in 2007. May have a dose of PCV15 or PCV20 May also get shingles vaccine since immune compromised Assessment & Plan (06/15/2024 9:52 AM CDT): Will monitor labs Neg TB 2016 Neg hepatitis 2016 utd eye exam May get COVID shot 2-3 months after having acute COVID infection Flu shot yearly - utd 2023 utd tdap. Igzfvwnym28 in 2007. May have a dose of PCV15 or PCV20 May also get shingles vaccine since immune compromised Assessment & Plan (03/17/2024 1:19 PM PULLEY MAINTAINER): Will monitor labs Neg TB 2016 Neg hepatitis 2016 utd eye exam May get COVID shot 2-3 months after having acute COVID infection Flu shot yearly - utd 2023 utd tdap. Vqduiywtv01 in 2007. May have a dose of PCV15 or PCV20 May also get shingles vaccine since immune compromised Assessment & Plan (12/17/2023 10:53 AM CDT): Will monitor labs Neg TB 2015 Neg hepatitis 2016 utd eye exam May get COVID shot 2-3 months after having acute COVID infection Flu shot yearly - will do today utd tdap. Eaqblwdge14 in 2007. May have a dose of PCV15 or PCV20 May also get shingles vaccine since immune compromised Assessment & Plan (09/10/2023 11:42 AM CDT): Will monitor labs Neg TB 2015 Neg hepatitis 2016 utd eye exam utd COVID vaccine. New boosters as applicable per guidelines Flu shot yearly utd tdap. Akrglftch46 in 2007. May have a dose of PCV15 or PCV20 May also get shingles vaccine since immune compromised Assessment & Plan (06/03/2023 11:57 AM CDT): Will monitor labs Neg TB 2016 Neg hepatitis 2016 utd eye exam utd COVID vaccine. New boosters as applicable per guidelines Flu shot yearly utd tdap. Wzwfemifd05 in 2007. May have a dose of PCV15 or PCV20 May also get shingles vaccine since immune compromised Assessment & Plan (11/12/2022 11:33 AM CDT): Will monitor labs Neg TB 2016 Neg hepatitis 2016 utd eye exam utd COVID vaccine. May get new vaccine soon Flu shot due soon utd tdap. Mapiagijx03 in 2007. May have a dose of PCV15 or PCV20 May also get shingles vaccine since immune compromised Assessment & Plan (07/14/2022 1:56 PM CDT): Will monitor labs Neg TB 2016 Neg hepatitis 2016 utd eye exam utd COVID vaccine. Had new booster Flu shot utd utd tdap. Uggqeacpp92 in 2007. May have a dose of PCV15 or PCV20 May also get shingles vaccine since immune compromised Herpes zoster without complication 04/18/2019 Assessment & Plan (04/18/2019 4:10 PM PULLEY MAINTAINER): Rash developed over the last 24 hrs with prodrome of pain for 3-4 days. Looks consistent with shingles. Will start valtrex 1gm TID x 7 days. Discussed typical course of shingles. Once lesions crust over she should no longer be contagious. 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 May use tylenol for pain. If pain persists she could ask OB if other meds can be used (gabapentin) during . Systemic lupus erythematosus 05/29/2016 Overview (03/04/2023): +GISSELLE 1:160, +DAIRY CONSULTANT, +chromatin. Low c4 (2014) Neg LAC, anticardiolipin, [...] AM CDT): cdai = 1 +GISSELLE 1:160, +DAIRY CONSULTANT, +chromatin. Low c4 (2014) Neg LAC, anticardiolipin, [...] Santamaria. Assessment & Plan (03/17/2024 1:19 PM PULLEY MAINTAINER): cdai = 11 +GISSELLE 1:160, +DAIRY CONSULTANT, +chromatin. Low c4 (2014) Neg LAC, anticardiolipin, [...] AM CDT): cdai = 18 +GISSELLE 1:160, +DAIRY CONSULTANT, +chromatin. Low c4 (2014) Neg LAC, anticardiolipin, [...] PM CDT): cdai = 2 +GISSELLE 1:160, +DAIRY CONSULTANT, +chromatin. Low c4 (2014) Neg LAC, anticardiolipin, [...] AM CDT): cdai = 5 +GISSELLE 1:160, +DAIRY CONSULTANT, +chromatin. Low c4 (2014) Neg LAC, anticardiolipin, b2gp1, RPR Neg SSA/SSB Neg RF, CCP On hcq 400mg/d and aza 100mg qpm. S/p at 39 weeks on 01/12/23. She continues to do well post- with no lupus flares. Continue current treatment plan. Labs today. F/u 3 months or sooner if needed Assessment & Plan (03/04/2023 12:33 PM PULLEY MAINTAINER): cdai = 10 +GISSELLE 1:160, +DAIRY CONSULTANT, +chromatin. Low c4 (2014) Neg LAC, anticardiolipin, [...] PM CDT): cdai = 0 +GISSELLE 1:160, +DAIRY CONSULTANT, +chromatin. Low c4 (2014) Neg LAC, anticardiolipin, [...] persistent arthralgias/fatigue. Currently 30 weeks . Saw [facility] as she was found to have a twin with demise of one fetus by the time of her initial ultrasound. Remaining fetus appears healthy. Had neg SSA/SSB. On 81mg aspirin daily. Will monitor labs [id number]. Doing monthly ultrasounds per [facility]. Continue current treatment plan. Labs today. F/u 3 months or sooner if needed Assessment & Plan (07/14/2022 1:57 PM CDT): cdai = 0 +GISSELLE 1:160, +DAIRY CONSULTANT, +chromatin. Low c4 (2014) Neg LAC, anticardiolipin, [...] , currently 13 weeks 2 days. Saw [facility] as she was found to have a twin with demise of one fetus by the time of her initial ultrasound. Remaining fetus appears healthy. Had neg SSA/SSB. On 81mg aspirin daily. Will monitor labs [id number]. Continue current treatment plan. Seen with Dr. [...] month Assessment & Plan (04/16/2022 4:45 PM PULLEY MAINTAINER): cdai = 0 Recent episode of pleuritic [...] month Assessment & Plan (04/03/2022 1:26 PM PULLEY MAINTAINER): cdai = 3 Low activity on exam. On hcq 400mg and azathioprine 50mg QAM and 100mg PM. More compliant with full dosing. Continue current regimen. Thinking about trying to conceive again in spring 2022. Labs today. F/u 3 months or sooner if needed. Assessment & Plan (01/02/2022 11:37 AM PULLEY MAINTAINER): cdai = 7 Low activity on exam. [...] utd Assessment & Plan (03/28/2021 10:43 AM PULLEY MAINTAINER): cdai = 3 Low activity on exam. On hcq 400mg/d and aza 50mg in pm. Will continue same regimen. If worse in the future we can increase dose of azathioprine. May use tylenol or nsaids prn. Labs today. F/u 3 months or sooner if needed. Flu shot utd Assessment & Plan (12/27/2020 10:22 AM PULLEY MAINTAINER): cdai = 6 Low activity on exam. [...] needed. Assessment & Plan (03/29/2020 5:39 PM PULLEY MAINTAINER): C/o increased fatigue and joint pains for [...] resume normal activities including exercise. Is . 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 She [...] order for labs to be done at [facility]. Assessment & Plan (04/18/2019 4:07 PM PULLEY MAINTAINER): Stable. Continue hcq. Hold aza while on valtrex for shingles. Keep next regularly scheduled appt. Assessment & Plan (03/17/2019 1:05 PM PULLEY MAINTAINER): Doing well. On hcq 400mg/d and aza [...] worse. Assessment & Plan (03/01/2018 11:40 AM PULLEY MAINTAINER): Doing well. cdai is 4. On hcq [...] noted. Assessment & Plan (02/23/2017 4:28 PM PULLEY MAINTAINER): Low disease activity with hcq bid and aza 200mg in pm. Currently 8 weeks post . Will ask her kiln tender if it is ok to take aza [...] [facility] and [facility] had a normal NT [...] [x] Blue Team Referring Provider: Michaela Chandra [phone] [] or Medicare Insurance [x] Dating Criteria: [...] . Will also check her lupus labs [id number] Supervision of other normal , antepartum 06/12/2022 [...] nsaids Assessment & Plan (04/16/2022 4:46 PM PULLEY MAINTAINER): See discussion. Evaluated in ER and CTA [...] negative. GBS negative. Membrane Status: intact 4. DC asthma: Continue albuterol PRN 5. H/o CS: [...] steps, initial encounter 02/18/2019 06/20/2019 Overview (02/18/2019): [facility] visit 02/18/19: --+FHTs. No ctx on toco. SVE closed/long/high --Abd soft, NT. Lower back pain improved w/ APAP. Advised to cont APAP/heat prn --No e/o SROM. Wet prep c/w yeast. Diflucan Rx given. --[facility] prec rev'd. --Keep f/u scheduled 02/24. Vaginal bleeding in 01/04/2019 04/21/2019 Overview (01/04/2019): 01/04/19 [facility] visit: Noticed blood in the toilet with voiding and on the toilet paper. Most recently, in [facility], bleeding on toilet paper was more brown. [...] (27-36wks):05/16/19 Nicolas [x] Flu Shot: getting at product safety lead's office today [] Rhogam (if Rh neg): [...] new booster Flu shot utd utd tdap. [id number] in 2007. She should now get a dose of PCV15 or PCV20 May also get shingles since immune compromised Assessment & Plan (04/16/2022 4:46 PM PULLEY MAINTAINER): Will monitor labs utd eye exam utd COVID vaccine. Had new booster Flu shot utd utd tdap. Cwtbfyvkp47 in 2007. She should now get a dose of PCV15 or PCV20 May also get shingles since immune compromised Assessment & Plan (04/03/2022 9:11 AM PULLEY MAINTAINER): Will monitor labs utd eye exam utd COVID vaccine. Had new booster Flu shot utd utd tdap. Bqvobzcjw13 in 2007. She should now get a dose of PCV15 or PCV20 May also get shingles since immune compromised Assessment & Plan (03/28/2022 2:07 PM PULLEY MAINTAINER): A(n) initial well visit to establish care [...] benefits. Assessment & Plan (01/02/2022 11:41 AM PULLEY MAINTAINER): Will monitor labs utd eye exam utd COVID vaccine. Had new booster Flu shot utd utd tdap. Kcqbsduzx99 in 2007. She should now get a dose of PCV15 or PCV20 May also get shingles since immune compromised Assessment & Plan (10/03/2021 10:42 AM CDT): Will monitor labs utd eye exam utd COVID vaccine. had 3rd dose Flu shot utd utd tdap. Jrakvxepv79 in 2007. Script sent in for Ktnzdly98 Assessment & Plan (09/04/2021 9:58 AM CDT): Will monitor labs utd eye exam utd COVID vaccine. had 3rd dose Flu shot utd utd tdap. Isykciynx88 in 2007. Script sent in for Lidhkkr25 Assessment & Plan (07/04/2021 10:55 AM CDT): Will monitor labs utd eye exam utd COVID vaccine. had 3rd dose Flu shot utd utd tdap. Uywcbzfnd20 in 2007. Script sent in for Hcqteio31 Assessment & Plan (03/28/2021 10:45 AM PULLEY MAINTAINER): Will monitor labs utd eye exam utd COVID vaccine. had 3rd dose Flu shot utd utd tdap. Vowicpkmm29 in 2007. Script sent in for Wrocevx08 Assessment & Plan (12/27/2020 10:43 AM PULLEY MAINTAINER): Will monitor labs utd COVID vaccine. Eligible for 3rd dose now Flu shot today. utd tdap. Mvpsuwlle77 in 2007. Script sent in for Oagkcgj16 Assessment & Plan (09/27/2020 10:23 AM CDT): Will monitor labs utd COVID vaccine. Discussed possible booster shot once we have more information from [facility] utd tdap. Kufibtriq20 in 2007 Assessment & Plan (06/28/2020 11:34 AM CDT): Will monitor labs Assessment & Plan (03/29/2020 8:58 AM PULLEY MAINTAINER): Will monitor labs Assessment & Plan (12/14/2019 4:18 PM CDT): Will monitor labs Assessment & Plan (09/01/2019 3:07 PM CDT): Will monitor labs utd flu shot Assessment & Plan (06/15/2019 10:48 AM CDT): Will monitor labs utd flu shot Assessment & Plan (03/17/2019 8:59 AM PULLEY MAINTAINER): Will monitor labs utd flu shot Assessment & Plan (11/29/2018 10:48 AM CDT): Will monitor labs Flu shot today Assessment & Plan (08/30/2018 9:02 AM CDT): Will monitor labs Assessment & Plan (06/07/2018 12:46 PM CDT): Will monitor labs Assessment & Plan (03/01/2018 9:18 AM PULLEY MAINTAINER): Labs today. F/u 3 mos, sooner if needed. Assessment & Plan (02/23/2017 2:12 PM PULLEY MAINTAINER): Labs today. F/u 3 mos, sooner if [...] - 06/28/2024 11:59 PM CDT Hospital Encounter [facility] Ul[facility]ound [address], 7th Floor, [address] [place] [address] Irregular menses Discharge Disposition: Discharge to home or self care 06/28/2024 Results Follow-Up [facility] Obstetrics and Gynecology [address] [facility] 1st Floor [address] [place] [address] WaPoonam ochoa Rai, NP US Pelvis Complete 06/19/2024 9:40 AM CDT Office Visit [facility] Obstetrics and Gynecology [address] [place] [address] Outpatient [facility] 7th Floor [address] [place] [phone] Poonam Alexander Rai, NP Irregular menses (Primary Dx) 06/16/2024 Results Follow-Up [facility] [address] [place] [phone] Idalia Bowles PA C4 complement, CBC with auto differential, Comprehensive metabolic panel, Additional followed-up results: 6 06/15/2024 9:45 AM CDT Office Visit [facility] [address] [place] [phone] Idalia Bowles PA Systemic lupus erythematosus, unspecified SLE type, unspecified organ involvement status (HCC) (Primary Dx); High risk medications (not anticoagulants) long-term use 06/13/2024 Telephone [facility] Obstetrics and Gynecology [address] [place] [address] 7th Floor [address] [place] [phone] Susana Diaz RN Menstrual Problem 06/06/2024 4:10 PM CDT Ancillary Procedure [facility] Imaging at [address] [address] Pain in left foot 06/06/2024 4:05 PM CDT Ancillary Procedure [facility] Imaging at [address] [address] Moderate left ankle sprain, initial encounter 06/06/2024 3:45 PM CDT Office Visit [facility] Convenient Care at [address] [address] Francesca Hawley NP Pain in left foot (Primary Dx); Moderate left ankle sprain, initial encounter 06/06/2024 Results Follow-Up [facility]ient Care at [address] [address] Francesca Hawley NP XR Foot [...] How often do you attend chur or episcopalian services? More than 4 times per year 01/13/2023 Do you belong to any clubs o r organizations such as anglican groups, unions, fraternal or athletic groups, or [...] place to sleep or slept in a care home (including now)? 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 Main C ampus ([facility] L AND D PROCEDURE) 2022 Term 39w 2d 0h 02m 0h 02m 3.85 kg (8 lb 7.8 oz) M C-Sec tion Combin ed Spinal /Epidu ral N Livin g 8 9 [facility] er Jason Felipe , Kayleen maria MD Complications:None Delivery Location:[facility] Main C ampus ([facility] L AND D PROCEDURE) Comments 2020: [facility] ([facility] 07/10 @ 830A ) matthew Dumont [...] function panel (07/06/2024 9:50 AM CDT) Pathologist [facility] Protein, Total 7.2 6.4 - 8.4 g/dL [facility] Albumin 4.4 3.6 - 5.1 g/dL [facility] Globulin 2.8 2.2 - 4.0 g/dL (calc) [employer] [facility]/glob ratio 1.6 0.9 - 2.3 (calc) [facility] Bilirubin, total 0.5 0.2 - 1.2 mg/dL [facility] Bilirubin, direct 0.1 < OR = 0.2 mg/dL [facility] Bilirubin, indirect 0.4 0.2 - 1.2 mg/dL (calc) [facility] Alk phos 33 31 - 125 U/L [facility] AST 22 10 - 30 U/L [facility] ALT (SGPT) 17 6 - 29 U/L [facility] Blood 07/06/2024 9:50 AM CDT 07/06/2024 9:51 AM CDT Idalia KRAUSE LAB BLOOD ORDERABLES Fin al Result [facility] [address] [place] [address] * US Pelvis Complete (06/28/2024 2:52 PM [...] No adnexal masses are identified. Poonam Alexander BAND TEACHER IMG US PROCEDURES Final Result * Anti-double stranded DNA abs (06/15/2024 10:26 AM CDT) DNA (DS) ab 1 IU/mL [facility] Comment: IU/mL Interpretation < or = 4 Negative 5-9 Indeterminate > or = 10 Positive Blood 06/15/2024 10:2 6 AM CDT 06/15/2024 10:27 AM CDT Idalia Bowles DC LAB BLOOD ORDERABLES Fin al Result Performing Organization Address [facility] de Phone Number [facility] [address] [place] [address] * C4 complement (06/15/2024 10:26 AM CDT) Complement component C4C 15 15 - 57 mg/dL [facility] Blood 06/15/2024 10:2 6 AM CDT 06/15/2024 10:27 AM CDT Idalia Cruzaury DC LAB BLOOD ORDERABLES Fin al Result Performing Organization Address [facility] de Phone Number [facility] [address] [place] [address] * CBC with auto differential (06/15/2024 10:26 AM CDT) Pathologist [facility] WBC 6.1 3.8 - 10.8 [...] KRAUSE LAB BLOOD ORDERABLES Fin al Result [facility] [address] [place] [address] * (ABNORMAL) Protein / creatinine ratio, urine, [...] CDT 06/15/2024 10:27 AM CDT Idalia Bowles DC LAB URINE ORDERABLES Fin al Result Performing Organization Address [facility] Co de Phone Number [facility] [address] [place] [address] * Erythrocyte sedimentation rate (06/15/2024 10:26 AM CDT) Erythrocyte sedimentation rate 9 < OR = 20 mm/h [facility] Blood 06/15/2024 10:2 6 AM CDT 06/15/2024 10:27 AM CDT Idalia Bowles DC LAB BLOOD ORDERABLES Fin al Result Performing Organization Address [facility] de Phone Number [facility] [address] [place] [address] * C3 complement (06/15/2024 10:26 AM CDT) Complement component C3C 121 83 - 193 mg/dL [facility] Blood 06/15/2024 10:2 6 AM CDT 06/15/2024 10:27 AM CDT Idalia Bowles DC LAB BLOOD ORDERABLES Fin al Result Performing Organization Address [facility] de Phone Number [facility] [employer] [facility] [address] [place] [address] * CRP (acute phase) (06/15/2024 10:26 AM CDT) C-RP <3.0 <8.0 mg/L [facility] Blood 06/15/2024 10:2 6 AM CDT 06/15/2024 10:27 AM CDT Idalia Bowles DC LAB BLOOD ORDERABLES Fin al Result Performing Organization Address [facility] de Phone Number [facility] [address] [place] [address] * (ABNORMAL) Comprehensive metabolic panel (06/15/2024 10:26 [...] BLOOD ORDERABLES Fin al Result [facility] [address] [place] [address] * XR Ankle Left 3 or More [...] Aidan Geiger M.D. AR T: Report ID: [id number] Reading Location: [id number] Procedure Note Aidan Geiger MD - 06/06/2024 [...] Aidan Geiger M.D. AR T: Report ID: [id number] Reading Location: [id number] Francesca Hawley NP IMG XR PROCEDURES Final [...] Aidan Geiger M.D. AR T: Report ID: [id number] Reading Location: [id number] Procedure Note Aidan Geiger MD - 06/06/2024 [...] Aidan Geiger M.D. AR T: Report ID: [id number] Reading Location: [id number] Francesca Hawley BAND TEACHER IMG XR PROCEDURES Final Re sult * Hepatitis C antibody (06/25/2022 11:41 AM CDT) Pathologist [facility] Hep C Ab NON-REACTI VE NON-REACT GARFIELD [employer] [facility] SIGNAL TO CUT-OFF 0.15 <1.00 [employer] [facility] Comment: HCV antibody was non-reactive. There is no laboratory evidence of HCV infection. In most cases, no further action is required. However, if recent HCV exposure is suspected, a test for HCV RNA (test code 71880) is suggested. For additional information please refer to http://education.Apcera/faq/UMT83j8 (This link is being provided for informational/ educational purposes only.) Blood 06/25/2022 11:4 1 AM CDT 06/25/2022 11:43 AM CDT Narrative [facility] - 06/26/2022 2:09 PM CDT ORDER CODE [id number] DELETED; ORDER CODE [id number] DELETED FASTING:YES FASTING: YES Michaela Chandra MD LAB MICROBIOLOGY - [facility] ORDERABLES Final Result [facility] [address] [place] [address] * Pap and High Risk HPV, reflex to Genotyping (12/18/2021 12:25 PM CDT) Pathologist [facility] CLINICAL INFORMATION: Routine exam [employer] [facility] 11/15/2021 [facility] Previous Pap NONE GIVEN [facility] Prev. Bx NONE GIVEN [employer] [facility] SOURCE: Cervix, Endocervix [facility] Pap, specimen adequacy Satisfactory for evaluation. Endocervical/feliciano sformation zone component present. [facility] HPV interp Negative for intraepithelial lesion or malignancy. [facility] Pattern Marker LM, CT(ASCP) CT screening location: [place] [address] [address] GLORIA Montes [facility] Comment [facility] Diagnostic [facility] Comment: EXPLANATORY NOTE: The Pap is a [...] High Risk E6/E7 Not Detected NOT DETECTED [facility] Comment: Not Detected High Risk HPV types (16,18,31,33,35,39,45,51,52, 56,58,59,66,68) were not detected. Other HPV types which cause anogenital lesions may be present. The significance of the other types of HPV in malignant processes has not been established. Methodology: Real Time PCR Thin prep 12/18/2021 12:2 5 PM CDT 12/18/2021 11:48 PM CDT Shira Alberts BAND TEACHER LAB CYTOLOGY ORDERABLES Final Result [facility] [address] [place] [address] [facility] Diagnostics/[facility] [address] [facility] [place] [address] from Last 3 Months or Most Recently Relevant to Health Maintenance Insurance [facility] [employer] [address] [employer] [address] [employer] [facility] Advance Directives For more information, please contact: [phone] * Full Code (Latest Code Status on [...] in case of cardiopulmonary arrest Care Teams Shell Assembler Relationship Specialty Start Date End Date Angelo Valdes MD [address] [facility] [address] [place] [address] PCP - General Family Medicine 03/25/22 Guy Staples MD [address] [facility] [address] [place], [place] [id number] Consulting Physician Obstetrics and Gynecology 03/25/22 Cailin Frank MD [address] [facility] AND , [address] [place], [place] [id number] Consulting Physician Maternal and Medicine 11/16/22 Jay Santamaria MD [address] [place] [address] Consulting Physician Rheumatology 03/04/23
--- OUTSIDE RECORDS SUMMARY | 2024-08-20 12:00 | XMS_ITS | Encounter Summary ---
Author Organization [facility] Address [address] [place] [address] Phone Care Team Providers Care Nuclear Waste Process Operator Name Role Phone Juan Baker MD Primary Care Provider [phone] Tarun Thompson MD Primary Care Provider [phone] Juan Baker MD Primary Care Provider [phone] Dwayne RIVERA MD, John J. Unavailable [phone] Juan Baker MD Primary Care Provider [phone] Angelo Valdes MD Primary Care Provider Guy Staples MD Unavailable Cailin Frank MD Unavailable Jay Santamaria MD Unavailable [phone] Encounter Details Date Type Department Care [...] on file Legal Sex Female 2:00 AM LOIN PULLER Gender Identity Not on file Sexual Orientation [...] COVID: Suspected 01/04/2023 01/04/2023 01/04/2023 4:45 PM LOIN PULLER COVID: Suspected 01/08/2023 01/08/2023 01/08/2023 2:13 PM LOIN PULLER COVID: Suspected 03/23/2024 03/23/2024 03/23/2024 10:02 AM LOIN PULLER Influenza, adult 03/23/2024 03/23/2024 03/30/2024 3:05 AM LOIN PULLER documented as of this encounter Care Teams Nuclear Waste Process Operator Relationship Specialty Start Date End Date Juan Baker MD [address] [place] [address] PCP - General 05/15/16 12/30/16 Tarun Thompson MD [id number] [place] [address] PCP - General 12/31/16 01/05/17 Juan Baker MD [address] [place] [address] PCP - General 01/06/17 04/08/17 Juan Baker MD [address] [place] [address] PCP - General 04/09/17 03/24/22 Angelo Valdes MD [address] [facility] [address] [place] [address] PCP - General Family Medicine 03/25/22 Ender Rice III, MD [address] [place] [address] Rheumatology 02/23/17 03/03/23 Guy Staples MD [address] [facility] [address] [place] [address] Consulting Physician Obstetrics and Gynecology 03/25/22 Cailin Frank MD [address] [facility] OBGYN M AND , [address] [place] [address] Consulting Physician Maternal and Medicine 11/16/22 Jay Santamaria MD [address] [place] [address] Consulting Physician Rheumatology 03/04/23 documented as of this encounter
--- OUTSIDE RECORDS SUMMARY | 2024-08-20 12:00 | XMS_ITS | Referral Summary ---
Author Organization [facility] Address [address] [place] [address] Care Team Providers Care Superintendent Maintenance Airports Name Role Phone Angelo Valdes MD Primary Care Provider Guy Staples MD Unavailable Cailin Frank MD Unavailable [phone] Jay Santamaria MD Unavailable [phone] Encounters Date Type Department Care Team Description 06/28/2024 Results Follow-Up [facility] Obstetrics and Gynecology [address] [facility] 1st Floor [address] [place] [address] Poonam Alexander Rai, NP US Pelvis Complete 06/28/2024 2:52 PM CDT - 06/28/2024 11:59 PM CDT Hospital Encounter [facility] - Ultrasound [address] [facility], 7th Floor, [address] [place] [address] Irregular menses Discharge Disposition: Discharge to home or self care 06/19/2024 9:40 AM CDT Office Visit [facility] Obstetrics and Gynecology [address] [facility] 7th Floor [address] [place] [id number] Poonam Alexander Rai, NP Irregular menses (Primary Dx) 06/16/2024 Results Follow-Up [facility] [address] [place] [id number] Idalia Bowles PA C4 complement, CBC with auto differential, Comprehensive metabolic panel, Additional followed-up results: 6 06/15/2024 9:45 AM CDT Office Visit [facility] [address] [place] [address] Idalia Bowles PA Systemic lupus erythematosus, unspecified SLE type, unspecified organ involvement status (HCC) (Primary Dx); High risk medications (not anticoagulants) long-term use 06/13/2024 Telephone [facility] Obstetrics and Gynecology [facility] 7th Floor [address] [place] [address] Susana Diaz RN Menstrual Problem 06/06/2024 Results Follow-Up [facility] at [address] [address] Francesca Hawley, VLAD XR Foot Left 3 or More Views 06/06/2024 4:10 PM CDT Ancillary Procedure [facility] Imaging at [address] [address] Pain in left foot 06/06/2024 4:05 PM CDT Ancillary Procedure [facility] Imaging at [address] [address] Moderate left ankle sprain, initial encounter 06/06/2024 3:45 PM CDT Office Visit [facility] at [address] [address] Francesca Hawley, VLAD Pain in [...] 03/17/2024 Assessment & Plan (03/17/2024 1:21 PM SLIME PLANT OPERATOR): Intermittent R hip pain, located near gluteal [...] new booster Flu shot utd utd tdap. [id number] in 2007. May have a dose of PCV15 or PCV20 May also get shingles vaccine since immune compromised Assessment & Plan (06/15/2024 9:52 AM CDT): Will monitor labs Neg TB 2016 Neg hepatitis 2016 utd eye exam May get COVID shot 2-3 months after having acute COVID infection Flu shot yearly - utd 2023 utd tdap. Srhqvqway05 in 2007. May have a dose of PCV15 or PCV20 May also get shingles vaccine since immune compromised Assessment & Plan (03/17/2024 1:19 PM SLIME PLANT OPERATOR): Will monitor labs Neg TB 2016 Neg hepatitis 2016 utd eye exam May get COVID shot 2-3 months after having acute COVID infection Flu shot yearly - utd 2023 utd tdap. Mblocnxuj27 in 2007. May have a dose of PCV15 or PCV20 May also get shingles vaccine since immune compromised Assessment & Plan (12/17/2023 10:53 AM CDT): Will monitor labs Neg TB 2016 Neg hepatitis 2016 utd eye exam May get COVID shot 2-3 months after having acute COVID infection Flu shot yearly - will do today utd tdap. Tvjjmxnsh15 in 2007. May have a dose of PCV15 or PCV20 May also get shingles vaccine since immune compromised Assessment & Plan (09/10/2023 11:42 AM CDT): Will monitor labs Neg TB 2016 Neg hepatitis 2016 utd eye exam utd COVID vaccine. New boosters as applicable per guidelines Flu shot yearly utd tdap. Rflwdcloa89 in 2007. May have a dose of PCV15 or PCV20 May also get shingles vaccine since immune compromised Assessment & Plan (06/03/2023 11:57 AM CDT): Will monitor labs Neg TB 2016 Neg hepatitis 2016 utd eye exam utd COVID vaccine. New boosters as applicable per guidelines Flu shot yearly utd tdap. Jdzpaicev52 in 2007. May have a dose of PCV15 or PCV20 May also get shingles vaccine since immune compromised Assessment & Plan (11/12/2022 11:33 AM CDT): Will monitor labs Neg TB 2016 Neg hepatitis 2016 utd eye exam utd COVID vaccine. May get new vaccine soon Flu shot due soon utd tdap. Lecuytrld80 in 2007. May have a dose of PCV15 or PCV20 May also get shingles vaccine since immune compromised Assessment & Plan (07/14/2022 1:56 PM CDT): Will monitor labs Neg TB 2016 Neg hepatitis 2016 utd eye exam utd COVID vaccine. Had new booster Flu shot utd utd tdap. Wpnpfrbkk13 in 2007. May have a dose of PCV15 or PCV20 May also get shingles vaccine since immune compromised Herpes zoster without complication 04/18/2019 Assessment & Plan (04/18/2019 4:10 PM SLIME PLANT OPERATOR): Rash developed over the last 24 hrs with prodrome of pain for 3-4 days. Looks consistent with shingles. Will start valtrex 1gm TID x 7 days. Discussed typical course of shingles. Once lesions crust over she should no longer be contagious. 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 May use tylenol for pain. If pain persists she could ask OB if other meds can be used (gabapentin) during . Systemic lupus erythematosus 05/29/2016 Overview (03/04/2023): +GISSELLE 1:160, +INSTRUCTOR APPAREL MANUFACTURE, +chromatin. Low c4 (2014) Neg LAC, anticardiolipin, [...] AM CDT): cdai = 1 +GISSELLE 1:160, +INSTRUCTOR APPAREL MANUFACTURE, +chromatin. Low c4 (2014) Neg LAC, anticardiolipin, [...] Santamaria. Assessment & Plan (03/17/2024 1:19 PM SLIME PLANT OPERATOR): cdai = 11 +GISSELLE 1:160, +INSTRUCTOR APPAREL MANUFACTURE, +chromatin. Low c4 (2014) Neg LAC, anticardiolipin, [...] AM CDT): cdai = 18 +GISSELLE 1:160, +INSTRUCTOR APPAREL MANUFACTURE, +chromatin. Low c4 (2014) Neg LAC, anticardiolipin, [...] PM CDT): cdai = 2 +GISSELLE 1:160, +INSTRUCTOR APPAREL MANUFACTURE, +chromatin. Low c4 (2014) Neg LAC, anticardiolipin, [...] AM CDT): cdai = 5 +GISSELLE 1:160, +INSTRUCTOR APPAREL MANUFACTURE, +chromatin. Low c4 (2014) Neg LAC, anticardiolipin, b2gp1, RPR Neg SSA/SSB Neg RF, CCP On hcq 400mg/d and aza 100mg qpm. S/p at 39 weeks on 01/12/23. She continues to do well post- with no lupus flares. Continue current treatment plan. Labs today. F/u 3 months or sooner if needed Assessment & Plan (03/04/2023 12:33 PM SLIME PLANT OPERATOR): cdai = 10 +GISSELLE 1:160, +INSTRUCTOR APPAREL MANUFACTURE, +chromatin. Low c4 (2014) Neg LAC, anticardiolipin, [...] PM CDT): cdai = 0 +GISSELLE 1:160, +INSTRUCTOR APPAREL MANUFACTURE, +chromatin. Low c4 (2014) Neg LAC, anticardiolipin, [...] On 81mg aspirin daily. Will monitor labs [id number]. Doing monthly ultrasounds per [facility]. Continue current treatment plan. Labs today. F/u 3 months or sooner if needed Assessment & Plan (07/14/2022 1:57 PM CDT): cdai = 0 +GISSELLE 1:160, +INSTRUCTOR APPAREL MANUFACTURE, +chromatin. Low c4 (2014) Neg LAC, anticardiolipin, [...] On 81mg aspirin daily. Will monitor labs [id number]. Continue current treatment plan. Seen with Dr. [...] month Assessment & Plan (04/16/2022 4:45 PM SLIME PLANT OPERATOR): cdai = 0 Recent episode of pleuritic [...] month Assessment & Plan (04/03/2022 1:26 PM SLIME PLANT OPERATOR): cdai = 3 Low activity on exam. On hcq 400mg and azathioprine 50mg QAM and 100mg PM. More compliant with full dosing. Continue current regimen. Thinking about trying to conceive again in spring 2022. Labs today. F/u 3 months or sooner if needed. Assessment & Plan (01/02/2022 11:37 AM SLIME PLANT OPERATOR): cdai = 7 Low activity on exam. [...] utd Assessment & Plan (03/28/2021 10:43 AM SLIME PLANT OPERATOR): cdai = 3 Low activity on exam. On hcq 400mg/d and aza 50mg in pm. Will continue same regimen. If worse in the future we can increase dose of azathioprine. May use tylenol or nsaids prn. Labs today. F/u 3 months or sooner if needed. Flu shot utd Assessment & Plan (12/27/2020 10:22 AM SLIME PLANT OPERATOR): cdai = 6 Low activity on exam. [...] needed. Assessment & Plan (03/29/2020 5:39 PM SLIME PLANT OPERATOR): C/o increased fatigue and joint pains for [...] resume normal activities including exercise. Is . Systems Coordinator started progestin only ocp for now. She [...] order for labs to be done at [facility]. Assessment & Plan (04/18/2019 4:07 PM SLIME PLANT OPERATOR): Stable. Continue hcq. Hold aza while on valtrex for shingles. Keep next regularly scheduled appt. Assessment & Plan (03/17/2019 1:05 PM SLIME PLANT OPERATOR): Doing well. On hcq 400mg/d and aza [...] worse. Assessment & Plan (03/01/2018 11:40 AM SLIME PLANT OPERATOR): Doing well. cdai is 4. On hcq [...] noted. Assessment & Plan (02/23/2017 4:28 PM SLIME PLANT OPERATOR): Low disease activity with hcq bid and aza 200mg in pm. Currently 8 weeks post . Will ask her bee rancher if it is ok to take aza [...] [x] Blue Team Referring Provider: Michaela Chandra [phone] [] [place] or Medicare Insurance [x] Dating Criteria: LMP [...] . Will also check her lupus labs [id number] Supervision of other normal , antepartum 06/12/2022 [...] nsaids Assessment & Plan (04/16/2022 4:46 PM SLIME PLANT OPERATOR): See discussion. Evaluated in ER and CTA [...] negative. GBS negative. Membrane Status: intact 4. PA asthma: Continue albuterol PRN 5. H/o CS: [...] steps, initial encounter 02/18/2019 06/20/2019 Overview (02/18/2019): [facility] visit 02/18/19: --+FHTs. No ctx on toco. SVE closed/long/high --Abd soft, NT. Lower back pain improved w/ APAP. Advised to cont APAP/heat prn --No e/o SROM. Wet prep c/w yeast. Diflucan Rx given. --[facility] prec rev'd. --Keep f/u scheduled 02/24. Vaginal bleeding in 01/04/2019 04/21/2019 Overview (01/04/2019): 01/04/19 [facility] visit: Noticed blood in the toilet with voiding and on the toilet paper. Most recently, in [facility], bleeding on toilet paper was [...] (27-36wks):05/16/19 Nicolas [x] Flu Shot: getting at reeling operator's office today [] Rhogam (if Rh [...] new booster Flu shot utd utd tdap. Ddspurjwn19 in 2007. She should now get a dose of PCV15 or PCV20 May also get shingles since immune compromised Assessment & Plan (04/16/2022 4:46 PM SLIME PLANT OPERATOR): Will monitor labs utd eye exam utd COVID vaccine. Had new booster Flu shot utd utd tdap. Rhbrkkiiq30 in 2007. She should now get a dose of PCV15 or PCV20 May also get shingles since immune compromised Assessment & Plan (04/03/2022 9:11 AM SLIME PLANT OPERATOR): Will monitor labs utd eye exam utd COVID vaccine. Had new booster Flu shot utd utd tdap. Eotdzzsdm04 in 2007. She should now get a dose of PCV15 or PCV20 May also get shingles since immune compromised Assessment & Plan (03/28/2022 2:07 PM SLIME PLANT OPERATOR): A(n) initial well visit to establish care [...] benefits. Assessment & Plan (01/02/2022 11:41 AM SLIME PLANT OPERATOR): Will monitor labs utd eye exam utd COVID vaccine. Had new booster Flu shot utd utd tdap. Tvjhadikx45 in 2007. She should now get a dose of PCV15 or PCV20 May also get shingles since immune compromised Assessment & Plan (10/03/2021 10:42 AM CDT): Will monitor labs utd eye exam utd COVID vaccine. had 3rd dose Flu shot utd utd tdap. Qcgaiobsw68 in 2007. Script sent in for Zbhxjup62 Assessment & Plan (09/04/2021 9:58 AM CDT): Will monitor labs utd eye exam utd COVID vaccine. had 3rd dose Flu shot utd utd tdap. Wqphpvpbm57 in 2007. Script sent in for Kwlrlir59 Assessment & Plan (07/04/2021 10:55 AM CDT): Will monitor labs utd eye exam utd COVID vaccine. had 3rd dose Flu shot utd utd tdap. Lbkwikqso43 in 2007. Script sent in for Ykjnwvm44 Assessment & Plan (03/28/2021 10:45 AM SLIME PLANT OPERATOR): Will monitor labs utd eye exam utd COVID vaccine. had 3rd dose Flu shot utd utd tdap. Ojyklovjc12 in 2007. Script sent in for Slzbwod45 Assessment & Plan (12/27/2020 10:43 AM SLIME PLANT OPERATOR): Will monitor labs utd COVID vaccine. Eligible for 3rd dose now Flu shot today. utd tdap. Vhpdufepr73 in 2007. Script sent in for Mqbsesx66 Assessment & Plan (09/27/2020 10:23 AM CDT): Will monitor labs utd COVID vaccine. Discussed possible booster shot once we have more information from [facility] utd tdap. Wvhmarwas46 in 2007 Assessment & Plan (06/28/2020 11:34 AM CDT): Will monitor labs Assessment & Plan (03/29/2020 8:58 AM SLIME PLANT OPERATOR): Will monitor labs Assessment & Plan (12/14/2019 4:18 PM CDT): Will monitor labs Assessment & Plan (09/01/2019 3:07 PM CDT): Will monitor labs utd flu shot Assessment & Plan (06/15/2019 10:48 AM CDT): Will monitor labs utd flu shot Assessment & Plan (03/17/2019 8:59 AM SLIME PLANT OPERATOR): Will monitor labs utd flu shot Assessment & Plan (11/29/2018 10:48 AM CDT): Will monitor labs Flu shot today Assessment & Plan (08/30/2018 9:02 AM CDT): Will monitor labs Assessment & Plan (06/07/2018 12:46 PM CDT): Will monitor labs Assessment & Plan (03/01/2018 9:18 AM SLIME PLANT OPERATOR): Labs today. F/u 3 mos, sooner if needed. Assessment & Plan (02/23/2017 2:12 PM SLIME PLANT OPERATOR): Labs today. F/u 3 mos, sooner if [...] week 01/13/2023 How often do you attend [facility] or sikh services? More than 4 times per year 01/13/2023 Do you belong to any clubs o r organizations such as baptist groups, unions, fraternal or athletic groups, or [...] in a long-term (including now)? 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 Not on file Not on file [...] Protein, Total 7.2 6.4 - 8.4 g/dL [facility] Albumin 4.4 3.6 - 5.1 g/dL [facility] Globulin 2.8 2.2 - 4.0 g/dL (calc) [facility] Alb/glob ratio 1.6 0.9 - 2.3 (calc) [facility] Bilirubin, total 0.5 0.2 - 1.2 mg/dL [facility] Bilirubin, direct 0.1 < OR = 0.2 mg/dL [facility] Bilirubin, indirect 0.4 0.2 - 1.2 mg/dL (calc) [facility] Alk phos 33 31 - 125 U/L [facility] AST 22 10 - 30 U/L [facility] ALT (SGPT) 17 6 - 29 U/L [facility] Blood 07/06/2024 9:50 AM CDT 07/06/2024 9:51 AM CDT us Idalia KRAUSE LAB BLOOD ORDERABLES Fin al Result [facility] [address] [place] [address] * US Pelvis Complete (06/28/2024 2:52 PM [...] adnexal masses are identified. Poonam Cavanaugh Wawrzyniak TEACHER PHYSICALLY IMPAIRED IMG US PROCEDURES Final Result * Anti-double stranded DNA abs (06/15/2024 10:26 AM CDT) Pathologist [facility] DNA (DS) ab 1 IU/mL [facility] Comment: IU/mL Interpretation < or = 4 Negative 5-9 Indeterminate > or = 10 Positive Blood 06/15/2024 10:2 6 AM CDT 06/15/2024 10:27 AM CDT Idalia Ramos Jelena [place] LAB BLOOD ORDERABLES Fin al Result Performing Organization Address [facility] Co de Phone Number [facility] [address] [place] [address] * C4 complement (06/15/2024 10:26 AM CDT) [facility] Complement component C4C 15 15 - 57 mg/dL [facility] Blood 06/15/2024 10:2 6 AM CDT 06/15/2024 10:27 AM CDT Result [facility] Idalia Cruzaury [place] LAB BLOOD ORDERABLES Fin al Result Performing Organization Address [facility] de Phone Number [facility] [address] [place] [address] * CBC with auto differential (06/15/2024 10:26 AM CDT) Pathologist [facility] WBC 6.1 3.8 - 10.8 Thousand/u L [...] LAB BLOOD ORDERABLES Fin al Result [facility] [address] [place] [address] * (ABNORMAL) Protein / creatinine ratio, urine, [...] CDT 06/15/2024 10:27 AM CDT Idalia Bowles [place] LAB URINE ORDERABLES Fin al Result Performing Organization Address [facility] Co de Phone Number [facility] [address] [place] [address] * Erythrocyte sedimentation rate (06/15/2024 10:26 AM CDT) Erythrocyte sedimentation rate 9 < OR = 20 mm/h [facility] Blood 06/15/2024 10:2 6 AM CDT 06/15/2024 10:27 AM CDT Idalia Bowles [place] LAB BLOOD ORDERABLES Fin al Result Performing Organization Address [facility] de Phone Number [facility] [address] [place] [address] * C3 complement (06/15/2024 10:26 AM CDT) Complement component C3C 121 83 - 193 mg/dL [facility] Blood 06/15/2024 10:2 6 AM CDT 06/15/2024 10:27 AM CDT [facility] BLOOD ORDERABLES Fin al Result Performing Organization Address [facility] de Phone Number [facility] [address] [place] [address] * CRP (acute phase) (06/15/2024 10:26 AM CDT) C-RP <3.0 <8.0 mg/L [facility] Blood 06/15/2024 10:2 6 AM CDT 06/15/2024 10:27 AM CDT us Idalia KRAUSE LAB BLOOD ORDERABLES Fin al Result [facility] [address] [address] * (ABNORMAL) Comprehensive metabolic panel (06/15/2024 10:26 [...] LAB BLOOD ORDERABLES Fin al Result [facility] [address] [place] [address] * XR Ankle Left 3 or More [...] signed by Aidan MORALES T: Report ID: [id number] Reading Location: [id number] Procedure Note Aidan Geiger MD - 06/06/2024 [...] signed by Aidan MORALES T: Report ID: [id number] Reading Location: [id number] Francesca Hawley TEACHER PHYSICALLY IMPAIRED IMG XR PROCEDURES Final Re sult * [...] signed by Aidan MORALES T: Report ID: [id number] Reading Location: [id number] Procedure Note Aidan Geiger MD - 06/06/2024 [...] 4:45 PM - Electronically signed by Aidan OMRALES T: Report ID: [id number] Reading Location: [place] [address] Francesca Hawley TEACHER PHYSICALLY IMPAIRED IMG XR PROCEDURES Final Re sult * [...] a test for HCV RNA (test code 15266) is suggested. For additional information please refer to http://education.[employer]/faq/NZT92r5 (This link is being provided for informational/ educational purposes only.) Blood 06/25/2022 11:4 1 AM CDT 06/25/2022 11:43 AM CDT Narrative [facility] - 06/26/2022 2:09 PM CDT ORDER CODE [id number] DELETED; ORDER CODE [id number] DELETED FASTING:YES FASTING: YES Michaela Chandra MD LAB MICROBIOLOGY - GENE RAL ORDERABLES Final Result [facility] [address] [place] [address] * Pap and High Risk HPV, reflex to Genotyping (12/18/2021 12:25 PM CDT) Pathologist [facility] CLINICAL INFORMATION: Routine exam [facility] 11/15/2021 [facility] Previous Pap NONE GIVEN [facility] Prev. Bx NONE GIVEN [facility] SOURCE: Cervix, Endocervix [facility] Pap, specimen adequacy Satisfactory for evaluation. Endocervical/feliciano sformation zone component present. [facility] HPV interp Negative for intraepithelial lesion or malignancy. [facility] Category Development Analyst LM, CT(ASCP) CT screening location: [place] [address] [place] [address] [facility] Comment [facility] Comment: EXPLANATORY NOTE: The Pap is [...] High Risk E6/E7 Not Detected NOT DETECTED [facility] Comment: Not Detected High Risk HPV types (16,18,31,33,35,39,45,51,52, 56,58,59,66,68) were not detected. Other HPV types which cause anogenital lesions may be present. The significance of the other types of HPV in malignant processes has not been established. Methodology: Real Time PCR Thin prep 12/18/2021 12:2 5 PM CDT 12/18/2021 11:48 PM CDT Shira Alberts NP LAB CYTOLOGY ORDERABLES Final Result [place] [address] [place] [address] [facility] [address] [place] [address] from Last 3 Months or Most Recently Relevant to Health Maintenance Insurance [facility] [place] [facility] Advance Directives For more information, please contact: [phone] * Full Code (Latest Code Status on [...] in case of cardiopulmonary arrest Care Teams Superintendent Maintenance Airports Relationship Specialty Start Date End Date Angelo Valdes MD [address] [facility] [address] [place] [address] PCP - General Family Medicine 03/25/22 Guy Staples MD [address] [facility] [address] [place] [address] Consulting Physician Obstetrics and Gynecology 03/25/22 Cailin Frank MD [address] [facility] , [address] [address] Consulting Physician Maternal and Medicine 11/16/22 Jay Santamaria MD [address] [place] [address] Consulting Physician Rheumatology 03/04/23
--- OUTSIDE RECORDS SUMMARY | 2024-08-20 12:00 | XMS_ITS | Clinical Summary ---
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
--- OUTSIDE RECORDS SUMMARY | 2024-08-20 12:00 | XMS_ITS | Clinical Summary ---
Author Organization [facility] Address [address] [place] [address] Care Team Providers Care Talent Acquisition Sourcer Name Role Phone Juan Baker MD Primary Care Provider [phone] Social History Tobacco Use Types Packs/Day Years [...] age to complete this topic Care Teams Talent Acquisition Sourcer Relationship Specialty Start Date End Date Juan Baker MD [address] [place] [id number] PCP - General 03/18/16
--- OUTSIDE RECORDS SUMMARY | 2024-08-20 12:00 | XMS_ITS | Encounter Summary ---
Author Organization [facility] Address [address] [place] [address] Phone Care Team Providers Care Arc Trimmer Name Role Phone Angelo Valdes MD Primary Care Provider Guy Staples MD Unavailable [phone] Cailin Frank MD Unavailable [phone] Jay Santamaria MD Unavailable [phone] Encounter Details Date Type Department Care Team (Late st Contact Info) Description 06/28/2024 Results Follow-Up [facility] Obstetrics and Gynecology [address] [facility] [address] [place] [address] Poonam Alexander Rai, PROTOTYPE ENGINEER [address] [facility] [address] [place] [address] [place] Pelvis Complete Social History [...] How often do you attend chur or mormon services? More than 4 times per year 01/13/2023 Do you belong to any clubs o r organizations such as yazdanism groups, unions, fraternal or athletic groups, or [...] place to sleep or slept in a group home (including now)? 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 Not on file Not on file documented as of this encounter Plan of Treatment Not on file documented as of this encounter Visit Diagnoses Not on filedocumented in this encounter Care Teams Arc Trimmer Relationship Specialty Start Date End Date Angelo Valdes MD [facility] [address] [address] PCP - General Family Medicine 03/25/22 Guy Staples MD [address] [address] Consulting Physician Obstetrics and Gynecology 03/25/22 Cailin Frank MD [address] [facility] DIV OBGYN [facility] [address] [address] Consulting Physician Maternal and Medicine 11/16/22 Jay Santamaria MD [address] [place] [address] Consulting Physician Rheumatology 03/04/23 documented as of this encounter
--- OUTSIDE RECORDS SUMMARY | 2024-08-20 12:00 | XMS_ITS | Encounter Summary ---
Author Organization [facility] Address [address] [place] [address] Phone Care Team Providers Care Phthalic Acid Purifier Name Role Phone Juan Baker MD Primary Care Provider [phone] Tarun Thompson MD Primary Care Provider [phone] Juan Baker MD Primary Care Provider [phone] Dwayne RIVERA MD, John J. 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 Gender Identity Not on file Sexual Orientation [...] COVID: Suspected 01/04/2023 01/04/2023 01/04/2023 4:45 PM EXTERIOR DOOR INSTALLER COVID: Suspected 01/08/2023 01/08/2023 01/08/2023 2:13 PM EXTERIOR DOOR INSTALLER COVID: Suspected 03/23/2024 03/23/2024 03/23/2024 10:02 AM EXTERIOR DOOR INSTALLER Influenza, adult 03/23/2024 03/23/2024 03/30/2024 3:05 AM EXTERIOR DOOR INSTALLER documented as of this encounter Care Teams Phthalic Acid Purifier Relationship Specialty Start Date End Date Juan Baker MD [address] [place] [address] PCP - General 05/15/16 12/30/16 Tarun Thompson MD [address] [facility] [id number] [place] [address] PCP - General 12/31/16 01/05/17 Juan Baker MD [address] [place] [address] PCP - General 01/06/17 04/08/17 Juan Baker MD [address] [place] [address] PCP - General 04/09/17 03/24/22 Angelo Valdes MD [address] [facility] [address] [place] [address] PCP - General Family Medicine 03/25/22 Ender Rice III, MD [address] [place] [address] Rheumatology 02/23/17 03/03/23 Guy Staples MD [address] [place] [address] Consulting Physician Obstetrics and Gynecology 03/25/22 Cailin Frank MD [address] OBGYN [facility] , [address] [place] [address] Consulting Physician Maternal and Medicine 11/16/22 Jay Santamaria MD [address] [place] [address] Consulting Physician Rheumatology 03/04/23 documented as of this encounter
--- OUTSIDE RECORDS SUMMARY | 2024-08-20 12:01 | XMS_ITS | Clinical Summary ---
Author Organization [facility] [employer] Address [address] [facility] [place] [address] Care Team Providers Care Wind Operations Manager Name Role Phone Dwayne RIVERA MD, Ender Colon Primary Care Provider [phone] Source Comments [facility],non-owned Affiliates and Associated Physician Practices is amultiple site organization consisting of ambulatory clinics and hospital sitesin [place], [place], [place] and [place]. This disclosure is being madepursuant to the Care Everywhere program and may not contain all information available regarding this patient. 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
[2024-08-20 12:03] LABS: Alanine Aminotransferase 20 U/L (6-35); Albumin Level 4.3 g/dL (3.5-5.1); Alkaline Phosphatase 39 U/L (38-126); Anion Gap 6 mmol/L (4-12); Aspartate Amino Transferase 33 U/L (14-36); Bilirubin,Total 0.4 mg/dL (0.2-1.3); Blood Urea Nitrogen 12 mg/dL (7-17); Calcium 9.2 mg/dL (8.4-10.2); Carbon Dioxide 26 mmol/L (22-30); Chloride 107 mmol/L (98-107); Estimated CRCL calculation 112 ml/min; Estimated Glomerular Filt Rate > 60; Glucose 95 mg/dL (65-110); INR 1.0; Lipase 56 U/L (23-300); Potassium 4.1 mmol/L (3.4-5.0); Prothrombin Time 13.1 Seconds (11.1-14.7); Sodium 139 mmol/L (137-145); Total Protein 7.6 g/dL (6.3-8.2)
[2024-08-20 12:04] LABS: Partial Thromboplastin Time 29.4 Seconds (22.3-36.8)
[2024-08-20] MEDS: ASPIRIN 81 MG CHEWABLE TABLET 324 MG PO (12:07)
[2024-08-20 12:14] LABS: Troponin I < 0.012 ng/mL (0.000-0.034)
--- NOTE | 2024-08-20 12:28 | ED_ITS ---
HPI - General Adult General Chief complaint: Chest Pain Stated complaint: chest pain Time Seen by Provider: 08/20/24 11:50 History of Present Illness HPI narrative: 34-year-old female present to the emergency department for evaluation for intermittent left-sided chest tightness and chest pain. Patient states she did have an episode on Wednesday that was short lasting, she describes it as a sharp pain with deep inspiration. Patient states lasted approximately 15 minutes. Patient does have history of lupus and does have history of pleurisy. Patient also has remote history of a small pleural effusion that did resolve with anti- inflammatories. Today patient was singing in taoism when she had onset of the left-sided chest tightness again which she states almost feels muscular in nature. Patient noticed it was worse with deep inspiration and deep expiration. At rest patient denies any current symptoms. Patient denies any previous cardiac history for herself. Patient has no prior history of PE or DVT. Related Data Allergies Allergy/AdvReac Type Severity Reaction Status Date / Time minocycline Allergy Unknown Unknown Verified 04/09/22 09:12 tramadol Allergy Nausea and Verified 04/09/22 09:12 Vomiting celecoxib (From Celebrex) AdvReac Intermediate Abdominal Verified 08/20/24 11:03 Pain Cat Dander Allergy Unknown Unknown Uncoded 04/09/22 09:12 Grass Allergy Unknown Unknown Uncoded 04/09/22 09:12 Molds and Smuts Allergy Unknown Unknown Uncoded 04/09/22 09:12 Review of Systems 2 Review of Systems: All systems reviewed & are unremarkable except as noted in HPI and below PMFSH Past Medical History Medical History History of asthma History of lupus Social History Social History Smoking status: Never smoker Substance use: never Exam 2 Narrative: APPEARANCE: Well appearing, no pain, no distress, well-nourished. HEAD: normocephalic, atraumatic. EYES: PERRLA/EOMI, conjunctivae clear. NOSE: Normal no drainage EARS:TMS clear with good light reflex. THROAT: Pharynx clear, no exudate. NECK: Supple. No adenopathy, no masses. RESPIRATORY: Airway patent, respirations nonlabored. Clear to auscultation bilaterally, no rales, rhonchi, wheezing. CARDIOVASCULAR: Regular rate and rhythm without murmurs rubs or gallops. ABDOMINAL: Soft, nontender, nondistended, normal bowel sounds MUSCULOSKELETAL: No reproducible left-sided chest wall tenderness NEURO: Alert. Cranial nerves II through XII intact. Good gait. Good coordination SKIN: Warm, dry. Normal Color Course Vital Signs Vital signs: Vital Signs Temperature 98.0 F 08/20/24 11:23 Pulse Rate 72 08/20/24 11:23 Blood Pressure 121/69 08/20/24 11:23 Pulse Oximetry 98 08/20/24 11:23 Oxygen Delivery Room Air 08/20/24 11:23 Temperature 98.1 F 08/20/24 14:18 Pulse Rate 77 08/20/24 14:18 Respiratory Rate 16 08/20/24 14:18 Blood Pressure 108/69 08/20/24 14:18 Pulse Oximetry 97 08/20/24 14:18 Oxygen Delivery Room Air 08/20/24 11:54 Medical Decision Making [facility] Narrative Medical decision making narrative: 44-year-old female presents emergency department for evaluation for left-sided chest wall pain with deep inspiration. Patient is currently afebrile with no leukocytosis hemoglobin of 12.8. Patient has a T INR of 1.0 D-dimer 0.38. Patient has no acute abnormalities on her CMP and a negative troponin. Patient's x-ray showed no focal infiltrate or effusion. EKG showed normal sinus rhythm with no acute evidence of STEMI. Patient was treated with Toradol in the emergency department. On re-evaluation patient states that her chest pain has resolved. Patient denied having any associated shortness of breath and patient's D-dimer was not elevated, low concern for pulmonary embolism or ACS. Patient family updated on results of the workup they are comfortable the plan for discharge and close follow-up. While patient has very few risk factors for ACS she was encouraged to have follow-up with primary care physician for additional outpatient cardiac testing. All questions concerns were addressed patient was well-appearing at time of discharge. Differential Diagnosis Differential Diagnosis: DVT, pulmonary embolism, ACS, pleurisy, pneumonia, muscular strain Vital Signs Vital Signs: Vital Signs Temperature 98.0 F 08/20/24 11:23 Pulse Rate 72 08/20/24 11:23 Blood Pressure 121/69 08/20/24 11:23 Pulse Oximetry 98 08/20/24 11:23 Oxygen Delivery Room Air 08/20/24 11:23 Temperature 98.1 F 08/20/24 14:18 Pulse Rate 77 08/20/24 14:18 Respiratory Rate 16 08/20/24 14:18 Blood Pressure 108/69 08/20/24 14:18 Pulse Oximetry 97 08/20/24 14:18 Oxygen Delivery Room Air 08/20/24 11:54 Lab Data Lab results reviewed: Yes I reviewed the patient's lab results. 08/20/24 11:44 08/20/24 11:44 Labs: Lab Results 08/20/24 Range/Units 11:44 WBC 5.9 (4.5-10.0) K/mm3 RBC 4.27 (4.2-5.4) M/mm3 Hgb 12.8 (12.0-15.0) g/dL Hct 38.6 (37.0-47.0) % MCV 90.4 (80-100) fl MCH 30.0 (26-34) pg MCHC 33.2 (32-36) g/dl RDW 12.2 (11.5-14.5) % Plt Count 187 (150-375) k/mm3 MPV 11.6 H (7.4-10.4) fl Immature Gran % (Auto) 0.3 (0-0.5) % Neut % (Auto) 72.0 (45.5-73.1) % Lymph % (Auto) 18.4 (18.3-44.2) % [place] % (Auto) 8.1 (2.6-8.5) % Eos % (Auto) 0.7 (0-4.4) % Baso % (Auto) 0.5 (0.2-1.2) % Lymph # (Auto) 1.09 (0.9-3.2) K/mm3 [place] # (Auto) 0.5 (0.1-0.6) K/mm3 Eos # (Auto) 0.0 (0-0.3) K/mm3 Baso # (Auto) 0.0 (0.0-0.1) K/mm3 Abs Immat Gran (auto) 0.02 (0.00-0.031) K/mm3 Absolute Neuts (auto) 4.3 (1.3-6.7) K/mm3 Absolute Nucleated RBC 0.000 (0.0-0.012) K/mm3 Nucleated RBC % 0.0 (0.0-0.2) % PT 13.1 (11.1-14.7) Seconds INR 1.0 APTT 29.4 (22.3-36.8) Seconds D-Dimer 0.38 (<0.48) ug/mL Sodium 139 (137-145) mmol/L Potassium 4.1 (3.4-5.0) mmol/L Chloride 107 (98-107) mmol/L Carbon Dioxide 26 (22-30) mmol/L Anion Gap 6 (4-12) mmol/L BUN 12 (7-17) mg/dL Creatinine 0.73 (0.7-1.0) mg/dL Estim Creat Clear Calc 112 ml/min Estimated GFR > 60 (59 - ) Glucose 95 (65-110) mg/dL Calcium 9.2 (8.4-10.2) mg/dL Total Bilirubin 0.4 (0.2-1.3) mg/dL AST 33 (14-36) U/L ALT 20 (6-35) U/L Alkaline Phosphatase 39 (38-126) U/L Troponin I < 0.012 (0.000-0.034) ng/mL Total Protein 7.6 (6.3-8.2) g/dL Albumin 4.3 (3.5-5.1) g/dL Lipase 56 (23-300) U/L Imaging Data Radiologist's impression: Impressions Chest X-Ray 08/20/24 11:16 IMPRESSION: No focal infiltrate or effusion. ECG Data EKG #1: EKG Interpretation: normal rate, sinus rhythm, no ectopy, non-specific ST changes, normal QRS and NL axis Discharge Plan Discharge Clinical Impression: Atypical chest pain, Chest pain, pleuritic Patient Disposition: Home Condition: Stable Instructions: Antibiotic Form, Pleurisy (ED), Diet for Stomach Ulcers and Gastritis (ED) Additional Instructions: Naproxen as needed for pleuritic chest pain. Esomeprazole as directed to help prevent gastritis from the naproxen. Have close follow-up with your primary care physician for additional outpatient cardiac testing such as a stress test. If you have any worsening symptoms or if you have any questions or concerns then please call or return to the emergency department. Patient Language: Jamaican Prescriptions: No Action prednisone 50 mg tablet 50 mg PO DAILY 5 Days Qty: 5 0RF naproxen 500 mg tablet 500 mg PO BID 14 Days Qty: 28 0RF Follow-up/Referrals: Lucio,Angelo Hayes MD [Primary Care Provider] - Quality HEART score for chest pain patients History: slightly suspicious ECG: normal Age: < or = to 45 years Risk factors: 1 or 2 risk factors Troponin: < or = to 1x normal limit Heart score: 1
[2024-08-20] MEDS: KETOROLAC 15 MG/ML VIAL (*BKC) IV PUSH (13:24)
== END 2024-08-20 14:21 | disposition home or self-care (01) ==
PROVIDERS: Emergency Provider Emergency Medicine; PCP Family Medicine
DX: R07.89 Other chest pain (principal); R07.81 Pleurodynia; M32.9 Systemic lupus erythematosus, unspecified
CPT/HCPCS: 36415; 71046; 80053; 83690; 84484; 85025; 85380; 85610; 85730; 93005; 96374; 99284; A9270; J1885